=== PATIENT | male | born 1960 | race Caucasian/White ===

== ENCOUNTER 2022-08-28 15:42 | Inpatient (IN) | payer BC, SELFPAY ==
--- NOTE | ~2022-08-28 | CT_ITS ---
EXAMINATION: CT HEAD WITHOUT CONTRAST CLINICAL INFORMATION: Hypertension. Disequilibrium. COMPARISON: No relevant prior imaging. TECHNIQUE: Contiguous axial imaging was performed from the skull base to vertex without intravenous administration of contrast. This CT examination was performed using dose optimization techniques as appropriate, variously including the following: *Automated exposure control *Adjustment of mA and/or kV according to patient size (this includes techniques or standardized protocols for targeted exams where dose is matched to indication/reason for exam; i.e. extremities or head) *Use of iterative reconstruction technique DLP: 629 mGy-cm FINDINGS: There is no acute intracranial hemorrhage or abnormal extra-axial collection. No intracranial mass effect or midline shift. Lateral and third ventricles are normal. No hydrocephalus. Carpio-white matter differentiation is preserved and there is no evidence of acute territorial infarct. The calvarium and skull base are intact. Mastoid air cells and middle ear cavities are well-aerated. Partial opacification of the ethmoid air cells. CT/CT head/brain wo IV con IMPRESSION: Unremarkable CT scan of the head. Specifically evidence of acute territorial infarct or hemorrhage.
--- NOTE | ~2022-08-28 | CT_ITS ---
EXAMINATION: CT HEAD WITHOUT CONTRAST CLINICAL INFORMATION: Mild cognitive impairment. Rule out intracranial etiology. COMPARISON: Previous head CT July 2022 TECHNIQUE: Contiguous axial imaging was performed from the skull base to vertex without intravenous administration of contrast. This CT examination was performed using dose optimization techniques as appropriate, variously including the following: *Automated exposure control *Adjustment of mA and/or kV according to patient size (this includes techniques or standardized protocols for targeted exams where dose is matched to indication/reason for exam; i.e. extremities or head) *Use of iterative reconstruction technique DLP: 786 mGy-cm FINDINGS: There is no evidence of an extra-axial collection. There is no evidence of intra-axial or extra-axial hemorrhage. Ventricles and extra-axial CSF spaces are appropriate. Carpio-white matter differentiation is normal. No mass, mass effect or infarct is seen. No skull fracture. Small polyp or cyst in the left maxillary sinus. Paranasal sinuses, mastoid air cells and middle ears are otherwise clear. CT/CT head/brain wo IV con IMPRESSION: No acute findings.
[2022-08-28 15:53] VITALS: BP 180/100; BP 220/130; PULSE 84; RESP 18; TEMP 37.3; O2SAT 100; O2SAT 98; BMI 25.7
--- NOTE | 2022-08-28 16:02 | ED.GENADULT ---
HPI - General Adult General Chief complaint: General Medical <Niyah Parker NP - Last Filed: 08/28/22 18:00> Stated complaint: dizziness, hypertension <Niyah Parker NP - Last Filed: 08/28/22 18:00> Time Seen by Provider: 08/28/22 15:57 <Niyah Parker NP - Last Filed: 08/28/22 18:00> Source: patient <Niyah Parker NP - Last Filed: 08/28/22 18:00> Mode of arrival: EMS <Niyah Parker NP - Last Filed: 08/28/22 18:00> Limitations: no limitations <Niyah Parker NP - Last Filed: 08/28/22 18:00> History of Present Illness HPI narrative: 62-year-old male with past medical history of hypertension, depression, anxiety, and newly diagnosed bipolar presents to the emergency department after calling EMS after feeling unsafe at work and psychiatric crisis. He states he is working with his primary care provider to manage new psychiatric medications for treatment of his bipolar disorder and states that he does not believe his medication is working effectively. As result he states he has not been able to sleep and has not been eating. He states he called EMS today due to ?unbearable anxiety and feeling unsafe to be at work or drive himself to the hospital. When EMS arrived it was on initial exam that they found him to be hypertensive 230/130. He denied any chest pain, headache, vision changes, or shortness of breath at the time. On arrival to the ED patient appeared anxious with inability to sit still. Initial blood pressure in the ED was 180/100 with repeat blood pressures 165/98. Current, he appears more relaxed, is cooperative, and appropriate in his conversation. He states he is prescribed lisinopril and amlodipine daily, clonidine for his anxiety 2 times a day, and lorazepam 15 mg at bedtime. He states he is compliant with his medications. He reports a high stress level related to his social life and finances. He is on a waiting list to see a therapist. <Niyah Parker NP - Last Filed: 08/28/22 18:00> Onset (ago): hour(s) <Niyah Parker NP - Last Filed: 08/28/22 18:00> Related Data Home medications: Home Medications Medication Instructions Recorded Confirmed amlodipine 5 mg tablet 1 tab PO DAILY 08/28/22 08/28/22 clonidine HCl 0.1 mg tablet 1 tab PO BID PRN insomnia 08/28/22 08/28/22 lisinopril 40 mg tablet 1 tab PO DAILY 08/28/22 08/28/22 olanzapine 15 mg tablet 1 tab PO BEDTIME 08/28/22 08/28/22 tamsulosin 0.4 mg capsule 1 cap PO DAILY 08/28/22 08/28/22 <Niyah Parker NP - Last Filed: 08/28/22 18:00> Allergies/adverse reactions: Allergies Allergy/AdvReac Type Severity Reaction Status Date / Time No Known Allergies Allergy Verified 08/28/22 16:07 <Niyah Parker NP - Last Filed: 08/28/22 18:00> [facility] Past Medical History Source: old records reviewed and obtained from family <Niyah Parker NP - Last Filed: 08/28/22 18:00> Social History Social History: Social History Advance Directives: Yes Advance Directives Information Provided: Yes Advance Directives on File: No Guardian: No <Niyah Parker NP - Last Filed: 08/28/22 18:00> Physical Exam ED Vital Signs: Vital Signs - 24 hr 08/28/22 15:53 08/29/22 00:35 Temperature 99.1 F 97.9 F Pulse Rate 84 68 Respiratory Rate 18 16 Blood Pressure 180/100 H 146/94 H Pulse Oximetry 98 98 Oxygen Delivery Method Room Air Room Air BMI result Body Mass Index 25.7 <Niyah Parker NP - Last Filed: 08/28/22 18:00> Vital Signs - 24 hr 08/28/22 15:53 08/29/22 00:35 Temperature 99.1 F 97.9 F Pulse Rate 84 68 Respiratory Rate 18 16 Blood Pressure 180/100 H 146/94 H Pulse Oximetry 98 98 Oxygen Delivery Method Room Air Room Air BMI result Body Mass Index 25.7 <Trisha Romero NP - Last Filed: 08/29/22 00:53> Course Course Course Narrative: 1700: Patient states he called EMS for transfer to the hospital for a psychiatric crisis. High blood pressure circumstantial. Crisis consult initiated. PERALTA urine and COVID ordered. Pending CT head, EKG, blood work for medical clearance. 1715: CT head unremarkable. Blood work unremarkable 1740: EKG NSR. Pt medically cleared 1755: sign out given to Trisha Delatorre [employer] M[employer] DISCLOSURE ACT SPECIALIST with no unanswered questions <Niyah Parker NP - Last Filed: 08/28/22 18:00> 1700: Patient states he called EMS for transfer to the hospital for a psychiatric crisis. High blood pressure circumstantial. Crisis consult initiated. PERALTA urine and COVID ordered. Pending CT head, EKG, blood work for medical clearance. 1715: CT head unremarkable. Blood work unremarkable 1740: EKG NSR. Pt medically cleared 1755: sign out given to Trisha Delatorre [employer] M[employer]GAGE DISCLOSURE ACT SPECIALIST with no unanswered questions 22:00 voluntary bed search, plan for admission. Physician observation at this time. <Trisha Romero NP - Last Filed: 08/29/22 00:53> Medical Decision Making MDM Narrative Medical decision making narrative: 62-year-old male with past medical history of hypertension, depression, anxiety, and newly diagnosed bipolar presents to the emergency department after calling EMS after feeling unsafe at work and psychiatric crisis. Blood pressure obtained by EMS in the field 230/130. On arrival to ED patient appeared anxious and slightly unsteady on his feet, CT head ordered to rule out intracranial pathology. CT head results unremarkable for acute territorial infarct or hemorrhage. EKG normal sinus rhythm with left axis deviation. Blood work unremarkable. After discussing HPI and physical exam with patient, he states he feels he is in psychiatric crisis and feels unsafe leaving the hospital and going home to an empty apartment. Crisis consult initiated. Patient medically cleared <Niyah Parker NP - Last Filed: 08/28/22 18:00> Lab Data Result diagrams: : 08/28/22 16:22 08/28/22 16:22 <Niyah Parker NP - Last Filed: 08/28/22 18:00> Labs: Lab Results 11/29/22 11/29/22 11/29/22 Range/Units 16:22 16:22 16:22 WBC 8.7 (4.8-10.8) X10*3/uL RBC 4.60 (4.60-5.80) X10*6/uL Hgb 13.9 L (14.0-18.0) g/dl Hct 41.7 L (42.0-52.0) % MCV 90.7 (80.0-98.0) fL MCH 30.2 (27.0-33.0) pg MCHC 33.3 (31.0-36.0) g/dl RDW 13.2 (11.0-16.0) % Plt Count 206 (160-400) X10*3/uL MPV 10.9 (9.4-12.4) fL Immature Gran % (Auto) 0.5 H (0.0-0.4) % Neut % (Auto) 75.4 H (45-73) % Lymph % (Auto) 15.8 L (20-40) % [place] % (Auto) 7.8 (2-11) % Eos % (Auto) 0.2 (0-4) % Baso % (Auto) 0.3 (0-2) % Lymph # (Auto) 1.4 (1.2-4.9) X10*3/uL [place] # (Auto) 0.7 (0.1-1.2) X10*3/uL Eos # (Auto) 0.0 (0.0-0.4) X10*3/uL Baso # (Auto) 0.0 (0.0-0.2) X10*3/uL Abs Immat Gran (auto) 0.04 H (0.00-0.03) X10*3/uL Absolute Neuts (auto) 6.5 (2.0-8.3) x10*3/uL Absolute Nucleated RBC 0.000 (0.0-0.012) X10*3/uL Nucleated RBC % (auto) 0.0 (0.0-0.2) /100WBC D-Dimer High Sensitivty NG/ML Sodium 142 (135-145) mmol/L Potassium 3.4 (3.3-5.1) mmol/L Chloride 105 (96-108) mmol/L Carbon Dioxide 27 (22-29) mmol/L Anion Gap 13 (12-20) BUN 14 (9-16) mg/dL Creatinine 1.10 (0.5-1.4) mg/dL Estim Creat Clear Calc 78.8 Estimated GFR > 60 Random Glucose 93 (60-115) mg/dL Calcium 9.6 (8.4-10.2) mg/dL Total Bilirubin 0.4 (0.0-1.0) mg/dL AST 16 (5-37) U/L ALT 16 (0-40) U/L Alkaline Phosphatase 47 (39-117) U/L Troponin I High Sens 7.7 (<3.5-35.0) ng/L Total Protein 6.8 (6.5-8.0) g/dL Albumin 4.5 (3.5-5.0) g/dL Urine Opiates Screen (Not Detect) Urine Fentanyl Screen (Not Detect) Ur Barbiturates Screen (Not Detect) Ur Phencyclidine Scrn (Not Detect) Ur Amphetamines Screen (Not Detect) U Benzodiazepines Scrn (Not Detect) Urine Cocaine Screen (Not Detect) U Marijuana (THC) Screen (Not Detect) COVID-19 (DOLLY) (Negative) COVID-19 Clin Com Influenza Type A (ANETA) (Negative) Influenza Type B (ANETA) (Negative) Influenza A & B Note 08/28/22 08/28/22 08/28/22 Range/Units 16:22 17:43 17:53 WBC (4.8-10.8) X10*3/uL RBC (4.60-5.80) X10*6/uL Hgb (14.0-18.0) g/dl Hct (42.0-52.0) % MCV (80.0-98.0) fL MCH (27.0-33.0) pg MCHC (31.0-36.0) g/dl RDW (11.0-16.0) % Plt Count (160-400) X10*3/uL MPV (9.4-12.4) fL Immature Gran % (Auto) (0.0-0.4) % Neut % (Auto) (45-73) % Lymph % (Auto) (20-40) % [place] % (Auto) (2-11) % Eos % (Auto) (0-4) % Baso % (Auto) (0-2) % Lymph # (Auto) (1.2-4.9) X10*3/uL [place] # (Auto) (0.1-1.2) X10*3/uL Eos # (Auto) (0.0-0.4) X10*3/uL Baso # (Auto) (0.0-0.2) X10*3/uL Abs Immat Gran (auto) (0.00-0.03) X10*3/uL Absolute Neuts (auto) (2.0-8.3) x10*3/uL Absolute Nucleated RBC (0.0-0.012) X10*3/uL Nucleated RBC % (auto) (0.0-0.2) /100WBC D-Dimer High Sensitivty < 150 NG/ML Sodium (135-145) mmol/L Potassium (3.3-5.1) mmol/L Chloride (96-108) mmol/L Carbon Dioxide (22-29) mmol/L Anion Gap (12-20) BUN (9-16) mg/dL Creatinine (0.5-1.4) mg/dL Estim Creat Clear Calc Estimated GFR Random Glucose (60-115) mg/dL Calcium (8.4-10.2) mg/dL Total Bilirubin (0.0-1.0) mg/dL AST (5-37) U/L ALT (0-40) U/L Alkaline Phosphatase (39-117) U/L Troponin I High Sens (<3.5-35.0) ng/L Total Protein (6.5-8.0) g/dL Albumin (3.5-5.0) g/dL Urine Opiates Screen Not Detected (Not Detect) Urine Fentanyl Screen Not Detected (Not Detect) Ur Barbiturates Screen Not Detected (Not Detect) Ur Phencyclidine Scrn Not Detected (Not Detect) Ur Amphetamines Screen Not Detected (Not Detect) U Benzodiazepines Scrn Not Detected (Not Detect) Urine Cocaine Screen Not Detected (Not Detect) U Marijuana (THC) Screen Not Detected (Not Detect) COVID-19 (DOLLY) Negative (Negative) COVID-19 Clin Com See Note Influenza Type A (ANETA) (Negative) Influenza Type B (ANETA) (Negative) Influenza A & B Note 08/28/22 Range/Units 18:22 WBC (4.8-10.8) X10*3/uL RBC (4.60-5.80) X10*6/uL Hgb (14.0-18.0) g/dl Hct (42.0-52.0) % MCV (80.0-98.0) fL MCH (27.0-33.0) pg MCHC (31.0-36.0) g/dl RDW (11.0-16.0) % Plt Count (160-400) X10*3/uL MPV (9.4-12.4) fL Immature Gran % (Auto) (0.0-0.4) % Neut % (Auto) (45-73) % Lymph % (Auto) (20-40) % [place] % (Auto) (2-11) % Eos % (Auto) (0-4) % Baso % (Auto) (0-2) % Lymph # (Auto) (1.2-4.9) X10*3/uL [place] # (Auto) (0.1-1.2) X10*3/uL Eos # (Auto) (0.0-0.4) X10*3/uL Baso # (Auto) (0.0-0.2) X10*3/uL Abs Immat Gran (auto) (0.00-0.03) X10*3/uL Absolute Neuts (auto) (2.0-8.3) x10*3/uL Absolute Nucleated RBC (0.0-0.012) X10*3/uL Nucleated RBC % (auto) (0.0-0.2) /100WBC D-Dimer High Sensitivty NG/ML Sodium (135-145) mmol/L Potassium (3.3-5.1) mmol/L Chloride (96-108) mmol/L Carbon Dioxide (22-29) mmol/L Anion Gap (12-20) BUN (9-16) mg/dL Creatinine (0.5-1.4) mg/dL Estim Creat Clear Calc Estimated GFR Random Glucose (60-115) mg/dL Calcium (8.4-10.2) mg/dL Total Bilirubin (0.0-1.0) mg/dL AST (5-37) U/L ALT (0-40) U/L Alkaline Phosphatase (39-117) U/L Troponin I High Sens (<3.5-35.0) ng/L Total Protein (6.5-8.0) g/dL Albumin (3.5-5.0) g/dL Urine Opiates Screen (Not Detect) Urine Fentanyl Screen (Not Detect) Ur Barbiturates Screen (Not Detect) Ur Phencyclidine Scrn (Not Detect) Ur Amphetamines Screen (Not Detect) U Benzodiazepines Scrn (Not Detect) Urine Cocaine Screen (Not Detect) U Marijuana (THC) Screen (Not Detect) COVID-19 (DOLLY) (Negative) COVID-19 Clin Com Influenza Type A (ANETA) Negative (Negative) Influenza Type B (ANETA) Negative (Negative) Influenza A & B Note See Note <Niyah Parker NP - Last Filed: 08/28/22 18:00> Lab Results 08/28/22 08/28/22 08/28/22 Range/Units 16:22 16:22 16:22 WBC 8.7 (4.8-10.8) X10*3/uL RBC 4.60 (4.60-5.80) X10*6/uL Hgb 13.9 L (14.0-18.0) g/dl Hct 41.7 L (42.0-52.0) % MCV 90.7 (80.0-98.0) fL MCH 30.2 (27.0-33.0) pg MCHC 33.3 (31.0-36.0) g/dl RDW 13.2 (11.0-16.0) % Plt Count 206 (160-400) X10*3/uL MPV 10.9 (9.4-12.4) fL Immature Gran % (Auto) 0.5 H (0.0-0.4) % Neut % (Auto) 75.4 H (45-73) % Lymph % (Auto) 15.8 L (20-40) % [place] % (Auto) 7.8 (2-11) % Eos % (Auto) 0.2 (0-4) % Baso % (Auto) 0.3 (0-2) % Lymph # (Auto) 1.4 (1.2-4.9) X10*3/uL [place] # (Auto) 0.7 (0.1-1.2) X10*3/uL Eos # (Auto) 0.0 (0.0-0.4) X10*3/uL Baso # (Auto) 0.0 (0.0-0.2) X10*3/uL Abs Immat Gran (auto) 0.04 H (0.00-0.03) X10*3/uL Absolute Neuts (auto) 6.5 (2.0-8.3) x10*3/uL Absolute Nucleated RBC 0.000 (0.0-0.012) X10*3/uL Nucleated RBC % (auto) 0.0 (0.0-0.2) /100WBC D-Dimer High Sensitivty NG/ML Sodium 142 (135-145) mmol/L Potassium 3.4 (3.3-5.1) mmol/L Chloride 105 (96-108) mmol/L Carbon Dioxide 27 (22-29) mmol/L Anion Gap 13 (12-20) BUN 14 (9-16) mg/dL Creatinine 1.10 (0.5-1.4) mg/dL Estim Creat Clear Calc 78.8 Estimated GFR > 60 Random Glucose 93 (60-115) mg/dL Calcium 9.6 (8.4-10.2) mg/dL Total Bilirubin 0.4 (0.0-1.0) mg/dL AST 16 (5-37) U/L ALT 16 (0-40) U/L Alkaline Phosphatase 47 (39-117) U/L Troponin I High Sens 7.7 (<3.5-35.0) ng/L Total Protein 6.8 (6.5-8.0) g/dL Albumin 4.5 (3.5-5.0) g/dL Urine Opiates Screen (Not Detect) Urine Fentanyl Screen (Not Detect) Ur Barbiturates Screen (Not Detect) Ur Phencyclidine Scrn (Not Detect) Ur Amphetamines Screen (Not Detect) U Benzodiazepines Scrn (Not Detect) Urine Cocaine Screen (Not Detect) U Marijuana (THC) Screen (Not Detect) COVID-19 (DOLLY) (Negative) COVID-19 Clin Com Influenza Type A (ANETA) (Negative) Influenza Type B (ANETA) (Negative) Influenza A & B Note 08/28/22 08/28/22 08/28/22 Range/Units 16:22 17:43 17:53 WBC (4.8-10.8) X10*3/uL RBC (4.60-5.80) X10*6/uL Hgb (14.0-18.0) g/dl Hct (42.0-52.0) % MCV (80.0-98.0) fL MCH (27.0-33.0) pg MCHC (31.0-36.0) g/dl RDW (11.0-16.0) % Plt Count (160-400) X10*3/uL MPV (9.4-12.4) fL Immature Gran % (Auto) (0.0-0.4) % Neut % (Auto) (45-73) % Lymph % (Auto) (20-40) % [place] % (Auto) (2-11) % Eos % (Auto) (0-4) % Baso % (Auto) (0-2) % Lymph # (Auto) (1.2-4.9) X10*3/uL [place] # (Auto) (0.1-1.2) X10*3/uL Eos # (Auto) (0.0-0.4) X10*3/uL Baso # (Auto) (0.0-0.2) X10*3/uL Abs Immat Gran (auto) (0.00-0.03) X10*3/uL Absolute Neuts (auto) (2.0-8.3) x10*3/uL Absolute Nucleated RBC (0.0-0.012) X10*3/uL Nucleated RBC % (auto) (0.0-0.2) /100WBC D-Dimer High Sensitivty < 150 NG/ML Sodium (135-145) mmol/L Potassium (3.3-5.1) mmol/L Chloride (96-108) mmol/L Carbon Dioxide (22-29) mmol/L Anion Gap (12-20) BUN (9-16) mg/dL Creatinine (0.5-1.4) mg/dL Estim Creat Clear Calc Estimated GFR Random Glucose (60-115) mg/dL Calcium (8.4-10.2) mg/dL Total Bilirubin (0.0-1.0) mg/dL AST (5-37) U/L ALT (0-40) U/L Alkaline Phosphatase (39-117) U/L Troponin I High Sens (<3.5-35.0) ng/L Total Protein (6.5-8.0) g/dL Albumin (3.5-5.0) g/dL Urine Opiates Screen Not Detected (Not Detect) Urine Fentanyl Screen Not Detected (Not Detect) Ur Barbiturates Screen Not Detected (Not Detect) Ur Phencyclidine Scrn Not Detected (Not Detect) Ur Amphetamines Screen Not Detected (Not Detect) U Benzodiazepines Scrn Not Detected (Not Detect) Urine Cocaine Screen Not Detected (Not Detect) U Marijuana (THC) Screen Not Detected (Not Detect) COVID-19 (DOLLY) Negative (Negative) COVID-19 Clin Com See Note Influenza Type A (ANETA) (Negative) Influenza Type B (ANETA) (Negative) Influenza A & B Note 08/28/22 Range/Units 18:22 WBC (4.8-10.8) X10*3/uL RBC (4.60-5.80) X10*6/uL Hgb (14.0-18.0) g/dl Hct (42.0-52.0) % MCV (80.0-98.0) fL MCH (27.0-33.0) pg MCHC (31.0-36.0) g/dl RDW (11.0-16.0) % Plt Count (160-400) X10*3/uL MPV (9.4-12.4) fL Immature Gran % (Auto) (0.0-0.4) % Neut % (Auto) (45-73) % Lymph % (Auto) (20-40) % [place] % (Auto) (2-11) % Eos % (Auto) (0-4) % Baso % (Auto) (0-2) % Lymph # (Auto) (1.2-4.9) X10*3/uL [place] # (Auto) (0.1-1.2) X10*3/uL Eos # (Auto) (0.0-0.4) X10*3/uL Baso # (Auto) (0.0-0.2) X10*3/uL Abs Immat Gran (auto) (0.00-0.03) X10*3/uL Absolute Neuts (auto) (2.0-8.3) x10*3/uL Absolute Nucleated RBC (0.0-0.012) X10*3/uL Nucleated RBC % (auto) (0.0-0.2) /100WBC D-Dimer High Sensitivty NG/ML Sodium (135-145) mmol/L Potassium (3.3-5.1) mmol/L Chloride (96-108) mmol/L Carbon Dioxide (22-29) mmol/L Anion Gap (12-20) BUN (9-16) mg/dL Creatinine (0.5-1.4) mg/dL Estim Creat Clear Calc Estimated GFR Random Glucose (60-115) mg/dL Calcium (8.4-10.2) mg/dL Total Bilirubin (0.0-1.0) mg/dL AST (5-37) U/L ALT (0-40) U/L Alkaline Phosphatase (39-117) U/L Troponin I High Sens (<3.5-35.0) ng/L Total Protein (6.5-8.0) g/dL Albumin (3.5-5.0) g/dL Urine Opiates Screen (Not Detect) Urine Fentanyl Screen (Not Detect) Ur Barbiturates Screen (Not Detect) Ur Phencyclidine Scrn (Not Detect) Ur Amphetamines Screen (Not Detect) U Benzodiazepines Scrn (Not Detect) Urine Cocaine Screen (Not Detect) U Marijuana (THC) Screen (Not Detect) COVID-19 (DOLLY) (Negative) COVID-19 Clin Com Influenza Type A (ANETA) Negative (Negative) Influenza Type B (ANETA) Negative (Negative) Influenza A & B Note See Note <Trisha Romero NP - Last Filed: 08/29/22 00:53> Imaging Data CT scan - head: My impression: CT scan unremarkable for acute territorial infarct or hemorrhage. <Niyah Parker NP - Last Filed: 08/28/22 18:00> Radiologist's impression: EXAMINATION: CT HEAD WITHOUT CONTRAST CLINICAL INFORMATION: Hypertension. Disequilibrium.? COMPARISON: No relevant prior imaging. TECHNIQUE: Contiguous axial imaging was performed from the skull base to vertex without intravenous administration of contrast. This CT examination was performed using dose optimization techniques as appropriate, variously including the following: *Automated exposure control *Adjustment of mA and/or kV according to patient size (this includes techniques or standardized protocols for targeted exams where dose is matched to indication/reason for exam; i.e. extremities or head) *Use of iterative reconstruction technique DLP: 629 mGy-cm FINDINGS: There is no acute intracranial hemorrhage or abnormal extra-axial collection. No intracranial mass effect or midline shift. Lateral and third ventricles are normal. No hydrocephalus. Carpio-white matter differentiation is preserved and there is no evidence of acute territorial infarct. The calvarium and skull base are intact. Mastoid air cells and middle ear cavities are well-aerated. Partial opacification of the ethmoid air cells. CT/CT head/brain wo IV con IMPRESSION: Unremarkable CT scan of the head. Specifically evidence of acute territorial infarct or hemorrhage. Dictated By: Pito Rodrigues MD Signed By: <Electronically signed by Pito Rodrigues MD in OV> 08/28/22 1711 DD/ 1639 TD/TT:? Adjutant General: <Niyah Parker NP - Last Filed: 08/28/22 18:00> ECG Data Prior ECG tracings: not available for review <Niyah Parker NP - Last Filed: 08/28/22 18:00> Interpretation: Vent. Rate : 075 BPM ? ? Atrial Rate : 075 BPM ?? P-R Int : 162 ms? QRS Dur : 088 ms ? ? QT Int : 394 ms ? ? ? P-R-T Axes : 067 -30 053 degrees ?? QTc Int : 439 ms ? Normal sinus rhythm Left axis deviation Septal infarct , age undetermined Abnormal ECG No previous ECGs available <NY Johnson Last Filed: 08/28/22 18:00> Discharge Plan Discharge Clinical Impression: Anxiety <NY Johnosn Last Filed: 08/28/22 18:00> Patient Disposition: Still a Patient <NY Johnson Last Filed: 08/28/22 18:00> Prescriptions: No Action clonidine HCl 0.1 mg tablet 1 tab PO BID PRN (Reason: insomnia) amlodipine 5 mg tablet 1 tab PO DAILY tamsulosin 0.4 mg capsule 1 cap PO DAILY olanzapine 15 mg tablet 1 tab PO BEDTIME lisinopril 40 mg tablet 1 tab PO DAILY <Niyah Parker HOME M[employer]GAGE DISCLOSURE ACT SPECIALIST - Last Filed: 08/28/22 18:00>
--- NOTE | 2022-08-28 16:07 | ECG_ITS ---
Test Reason : DIZZINESS/HYPERTENSION Blood Pressure : / mmHG Vent. Rate : 075 BPM Atrial Rate : 075 BPM P-R Int : 162 ms QRS Dur : 088 ms QT Int : 394 ms P-R-T Axes : 067 -30 053 degrees QTc Int : 439 ms Normal sinus rhythm Left anterior fascicular block Intra-ventricular conduction delay Abnormal ECG No previous ECGs available Referred By: Niyah Parker Electronically Signed By:SUSHMA QUEVEDO MD
[2022-08-28 16:28] LABS: MANUAL DIFF FLAG NO
[2022-08-28 16:30] LABS: Basophils Percent Auto 0.3 % (0-2); Eosinophils Percent Auto 0.2 % (0-4); Hematocrit 41.7 % (42.0-52.0); Hemoglobin 13.9 g/dl (14.0-18.0); Imm Gran Abs Auto 0.04 X10*3/uL (0.00-0.03); Imm Gran Pct Auto 0.5 % (0.0-0.4); Lymphocytes Absolute Auto 1.4 X10*3/uL (1.2-4.9); Lymphocytes Percent Auto 15.8 % (20-40); Mean Corpuscular HGB Conc 33.3 g/dl (31.0-36.0); Mean Corpuscular Hemoglobin 30.2 pg (27.0-33.0); Mean Corpuscular Volume 90.7 fL (80.0-98.0); Mean Platelet Volume 10.9 fL (9.4-12.4); Monocytes Absolute Auto 0.7 X10*3/uL (0.1-1.2); Monocytes Percent Auto 7.8 % (2-11); Neutrophils Absolute Auto 6.5 x10*3/uL (2.0-8.3); Neutrophils Percent Auto 75.4 % (45-73); Platelet Count 206 X10*3/uL (160-400); Red Cell Distribution Width 13.2 % (11.0-16.0); White Blood Count 8.7 X10*3/uL (4.8-10.8)
[2022-08-28 16:39] LABS: D Dimer High Sensitivity < 150 NG/ML
[2022-08-28 16:43] LABS: Alanine Aminotransferase 16 U/L (0-40); Albumin Level 4.5 g/dL (3.5-5.0); Alkaline Phosphatase 47 U/L (39-117); Anion Gap 13 (12-20); Aspartate Amino Transferase 16 U/L (5-37); Bilirubin Total 0.4 mg/dL (0.0-1.0); Blood Urea Nitrogen 14 mg/dL (9-16); Calcium 9.6 mg/dL (8.4-10.2); Carbon Dioxide 27 mmol/L (22-29); Chloride 105 mmol/L (96-108); Creatinine Clr Calc Pharmacy 78.8; Estimated Glomerular Filt Rate > 60; Glucose Random 93 mg/dL (60-115); Potassium 3.4 mmol/L (3.3-5.1); Sodium 142 mmol/L (135-145); Total Protein 6.8 g/dL (6.5-8.0)
[2022-08-28 16:53] LABS: Troponin-I High Sensitivity 7.7 ng/L (<3.5-35.0)
--- NOTE | 2022-08-28 17:35 | PC.NURSE ---
N consult form sent.
--- NOTE | 2022-08-28 17:50 | PC.NURSE ---
Security called to change analyst PT.
--- NOTE | 2022-08-28 18:07 | PC.NURSE ---
PT a&o x4, PT reports having SI with no plan. Reports racing thoughts since not being able to sleep. PT reports feeling safe while here. PT calm and cooperative.
[2022-08-28 18:10] LABS: Amphetamine Screen Urine Not Detected (Not Detect); Barbiturates, Urine Not Detected (Not Detect); Benzodiazepines Screen Urine Not Detected (Not Detect); Cannabinoid Screen Urine Not Detected (Not Detect); Cocaine Screen Urine Not Detected (Not Detect); Fentanyl, urine Not Detected (Not Detect); Opiate Screen Urine Not Detected (Not Detect); Phencyclidine Screen Urine Not Detected (Not Detect)
[2022-08-28 18:13] LABS: COVID-19 Test Negative (Negative); IDNOW Serial# BCCEAD1C
[2022-08-28 18:47] LABS: IDNOW Serial# 16C4AD1C; Influenza A Negative (Negative); Influenza B2 Negative (Negative)
--- NOTE | 2022-08-28 21:59 | MHC.CARE ---
Pt has been evaluated by CARE team and is a voluntary inpt psych bedsearch. Anticipated admission to hospital psychiatry tomorrow.
[2022-08-29 00:35] VITALS: BP 146/94; PULSE 68; RESP 16; TEMP 36.6; O2SAT 98
--- NOTE | 2022-08-29 06:11 | PC.NURSE ---
Patient slept through the night, no distress observed/reported, behavior non concerning, med rec completed/pending provider's approval, disposition per care team is voluntary inpatient bed search, VSS, will continue to monitor.
[2022-08-29 07:33] VITALS: BP 152/88; PULSE 100; RESP 20; TEMP 37.1; O2SAT 97
[2022-08-29] MEDS: OLANZapine 5 MG TABLET PO (10:48)
[2022-08-29 19:00] VITALS: BP 141/82; PULSE 81; RESP 16; TEMP 36.3; O2SAT 98
[2022-08-29] MEDS: OLANZapine 7.5 MG TABLET 15 MG PO (20:43)
[2022-08-29] MEDS: traZODone HCL 50 MG TABLET PO ×2 (20:44→23:46)
[2022-08-29] MEDS: hydrOXYzine HCL 25 MG TABLET PO (20:44)
--- NOTE | 2022-08-29 22:38 | PC.NURSE ---
Rudy was admitted to [facility] at 1900 from [facility] on [facility] for treatment of unspecified bipolar disorder.? Precipitant of admission includes lack of sleep possibly related to medication changes, which pt sts put him into manic side of bipolar, depression and SI. Pt A&O, INAD, pleasant and cooperative. Mood is stable; Affect is flat. Pt denies HI/AH/VH/pain, reports safety concerns related to lack of sleep. Thought process linear. Pt sts SI with plan to put a knife through the heart. Reports reduced appetite, 13 lb. weight loss over a month. Sleep is poor. Focus appears appropriate during assessment; however, pt reports things that were easy for him a month ago are no longer. Pt sts he last smoked MJ a month ago, no other substance use.? Medical issues: Hx obstructive sleep apnea diagnosed 20 years ago when pt was 100 lbs. Heavier. Use of CPAP exacerbated condition and he has not used. Physical complaint: Htn. Takes lisinopril, amlodipine. Safety checks: Q15.
[2022-08-29 22:40] VITALS: BMI 24.0
[2022-08-30] MEDS: LORazepam 1 MG TABLET PO ×2 (03:45→20:48)
[2022-08-30 07:00] VITALS: BMI 24.0
[2022-08-30 08:45] LABS: Estimated Average Glucose 100 mg/dL; Hemoglobin A1c % 5.1 %
[2022-08-30] MEDS: Tamsulosin HCL 0.4 MG CAPSULE PO (08:52)
[2022-08-30] MEDS: lisinopriL 40 MG TABLET PO (08:52)
[2022-08-30 09:36] LABS: Cholesterol 197 mg/dL; Free T4 (Free Thyroxine) 1.18 ng/dL (0.71-1.85); HDL Cholesterol 65 mg/dL; LDL Cholesterol Calculated 114 mg/dl; Magnesium 2.2 mg/dL (1.6-2.6); Thyroid Stimulating Hormone 0.84 uIU/mL (0.32-4.0); Triglycerides 93 mg/dL
[2022-08-30 09:47] LABS: Folate 10.7 ng/mL (> or = 4.0); Vitamin B12 251 pg/mL (200-900)
--- NOTE | 2022-08-30 10:00 | PC.NURSE ---
5mg amlodipine not given at 9am; waiting on pharmacy
[2022-08-30 10:30] VITALS: BP 146/67; PULSE 78; RESP 16; TEMP 36.6; O2SAT 100
--- NOTE | 2022-08-30 10:49 | P.HPPS_ITS ---
HPI Date of Service: 08/30/22 Chief Complaint: Bipolar disorder,SI Sources of Information: patient interviewed, chart reviewed and crisis/core team assessment reviewed HPI Subjective Notes: [place] Warning and Conditional Voluntary Healthcare Proxy: No Guardianship: No Medical Problems Affecting Mental Status: No Narrative: 62 yo male presents with SI. Reports a manic episode beginning in January 2022 with several subsequent medication changes and resulting lability, racing of thoughts, inability to sleep and depressed mood. No sx of paranoia or delusions. +rumination. Reports in January 2022 he experienced a [place] break in an airport, where security was activated and pt had a resulting panic attack. Pt reports he left his after their vacation, had an affair, signed a year lease for an apartment and has been manic essentially throughout. Recently diagnosed as bipolar vs unipolar, Ritalin was stopped, Effexor was stopped, Lexapro was stopped and Olanzapine was started. Pt attended a 3 weeks IOP/PHP program and is on the wait list for therapy with [facility]. 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 Pt references his perspective as being that of [employer] and this has contributed to his depressive sx. Past Psychiatric History: IP: This is the first OP: [facility] pending Iker Dumont prescribing Trials: Ritalin, Lexapro, Effexor Medical Evaluation Reviewed: Yes [facility] Medical History (Updated 08/31/22 @ 17:49 by Katie Lui, [employer]) Bipolar disorder Narrative: HTN Family History: Brother of alcoholism/oral cancer d/t smoking Social History: Born in [place]. 1 brother, 1 sister, age 69 Parents have mom in 1978 of pancreatic cancer, dad in 2000 of lung cancer 40 years, on his 40th anniversary 2 children, 2 grandchildren daughter and her and grandchildren live with pt's son and partner live nearby all the children are doing well- they are my basil Substance History: Alcohol by history-now sporadic Cannabis started age 15, grows it, helped with sleep by hx, before the anxiety started Trauma History: This episode has been traumatic Diagnostics Vital Signs (24Hr): Vital Signs - 24 hr 08/29/22 19:00 08/30/22 10:30 Temperature 97.4 F 97.8 F Pulse Rate 81 78 Respiratory Rate 16 16 Blood Pressure 141/82 H 146/67 H Pulse Oximetry 98 100 Oxygen Delivery Method Room Air Room Air BMI result Body Mass Index 24.0 Labs Results: 08/28/22 16:22 08/28/22 16:22 Labs: Laboratory Results - last 48 hr 08/28/22 08/28/22 08/28/22 16:22 16:22 16:22 WBC 8.7 RBC 4.60 Hgb 13.9 L Hct 41.7 L MCV 90.7 MCH 30.2 MCHC 33.3 RDW 13.2 Plt Count 206 MPV 10.9 Immature Gran % (Auto) 0.5 H Neut % (Auto) 75.4 H Lymph % (Auto) 15.8 L [place] % (Auto) 7.8 Eos % (Auto) 0.2 Baso % (Auto) 0.3 Lymph # (Auto) 1.4 [place] # (Auto) 0.7 Eos # (Auto) 0.0 Baso # (Auto) 0.0 Abs Immat Gran (auto) 0.04 H Absolute Neuts (auto) 6.5 Absolute Nucleated RBC 0.000 Nucleated RBC % (auto) 0.0 D-Dimer High Sensitivty Sodium 142 Potassium 3.4 Chloride 105 Carbon Dioxide 27 Anion Gap 13 BUN 14 Creatinine 1.10 Estim Creat Clear Calc 78.8 Estimated GFR > 60 Random Glucose 93 Estimat Average Glucose Hemoglobin A1c % Calcium 9.6 Magnesium Total Bilirubin 0.4 AST 16 ALT 16 Alkaline Phosphatase 47 Troponin I High Sens 7.7 Total Protein 6.8 Albumin 4.5 Triglycerides Cholesterol LDL Cholesterol, Calc HDL Cholesterol Vitamin B12 Folate TSH Free T4 Urine Opiates Screen Urine Fentanyl Screen Ur Barbiturates Screen Ur Phencyclidine Scrn Ur Amphetamines Screen U Benzodiazepines Scrn Urine Cocaine Screen U Marijuana (THC) Screen COVID-19 (DOLLY) COVID-19 Clin Com Influenza Type A (ANETA) Influenza Type B (ANETA) Influenza A & B Note 08/28/22 08/28/22 08/28/22 16:22 17:43 17:53 WBC RBC Hgb Hct MCV MCH MCHC RDW Plt Count MPV Immature Gran % (Auto) Neut % (Auto) Lymph % (Auto) [place] % (Auto) Eos % (Auto) Baso % (Auto) Lymph # (Auto) [place] # (Auto) Eos # (Auto) Baso # (Auto) Abs Immat Gran (auto) Absolute Neuts (auto) Absolute Nucleated RBC Nucleated RBC % (auto) D-Dimer High Sensitivty < 150 Sodium Potassium Chloride Carbon Dioxide Anion Gap BUN Creatinine Estim Creat Clear Calc Estimated GFR Random Glucose Estimat Average Glucose Hemoglobin A1c % Calcium Magnesium Total Bilirubin AST ALT Alkaline Phosphatase Troponin I High Sens Total Protein Albumin Triglycerides Cholesterol LDL Cholesterol, Calc HDL Cholesterol Vitamin B12 Folate TSH Free T4 Urine Opiates Screen Not Detected Urine Fentanyl Screen Not Detected Ur Barbiturates Screen Not Detected Ur Phencyclidine Scrn Not Detected Ur Amphetamines Screen Not Detected U Benzodiazepines Scrn Not Detected Urine Cocaine Screen Not Detected U Marijuana (THC) Screen Not Detected COVID-19 (DOLLY) Negative COVID-[employer] See Note Influenza Type A (ANETA) Influenza Type B (ANETA) Influenza A & B Note 08/28/22 08/30/22 08/30/22 18:22 08:02 08:02 WBC RBC Hgb Hct MCV MCH MCHC RDW Plt Count MPV Immature Gran % (Auto) Neut % (Auto) Lymph % (Auto) [place] % (Auto) Eos % (Auto) Baso % (Auto) Lymph # (Auto) [place] # (Auto) Eos # (Auto) Baso # (Auto) Abs Immat Gran (auto) Absolute Neuts (auto) Absolute Nucleated RBC Nucleated RBC % (auto) D-Dimer High Sensitivty Sodium Potassium Chloride Carbon Dioxide Anion Gap BUN Creatinine Estim Creat Clear Calc Estimated GFR Random Glucose Estimat Average Glucose 100 Hemoglobin A1c % 5.1 Calcium Magnesium 2.2 Total Bilirubin AST ALT Alkaline Phosphatase Troponin I High Sens Total Protein Albumin Triglycerides 93 Cholesterol 197 LDL Cholesterol, Calc 114 HDL Cholesterol 65 Vitamin B12 Folate TSH 0.84 Free T4 1.18 Urine Opiates Screen Urine Fentanyl Screen Ur Barbiturates Screen Ur Phencyclidine Scrn Ur Amphetamines Screen U Benzodiazepines Scrn Urine Cocaine Screen U Marijuana (THC) Screen COVID-19 (DOLLY) COVID-[employer] Influenza Type A (ANETA) Negative Influenza Type B (ANETA) Negative Influenza A & B Note See Note 08/30/22 08:02 WBC RBC Hgb Hct MCV MCH MCHC RDW Plt Count MPV Immature Gran % (Auto) Neut % (Auto) Lymph % (Auto) [place] % (Auto) Eos % (Auto) Baso % (Auto) Lymph # (Auto) [place] # (Auto) Eos # (Auto) Baso # (Auto) Abs Immat Gran (auto) Absolute Neuts (auto) Absolute Nucleated RBC Nucleated RBC % (auto) D-Dimer High Sensitivty Sodium Potassium Chloride Carbon Dioxide Anion Gap BUN Creatinine Estim Creat Clear Calc Estimated GFR Random Glucose Estimat Average Glucose Hemoglobin A1c % Calcium Magnesium Total Bilirubin AST ALT Alkaline Phosphatase Troponin I High Sens Total Protein Albumin Triglycerides Cholesterol LDL Cholesterol, Calc HDL Cholesterol Vitamin B12 251 Folate 10.7 TSH Free T4 Urine Opiates Screen Urine Fentanyl Screen Ur Barbiturates Screen Ur Phencyclidine Scrn Ur Amphetamines Screen U Benzodiazepines Scrn Urine Cocaine Screen U Marijuana (THC) Screen COVID-19 (DOLLY) COVID-19 Clin Com Influenza Type A (ANETA) Influenza Type B (ANETA) Influenza A & B Note Imaging Radiology Impressions: ITS Impressions Head CT 08/28/22 16:39 IMPRESSION: Unremarkable CT scan of the head. Specifically evidence of acute territorial infarct or hemorrhage. Meds/Allergies Meds Home Medications Medication Instructions Recorded Confirmed Type amlodipine 5 mg tablet 1 tab PO DAILY 08/28/22 08/28/22 History clonidine HCl 0.1 mg tablet 1 tab PO BID PRN insomnia 08/28/22 08/28/22 History lisinopril 40 mg tablet 1 tab PO DAILY 08/28/22 08/28/22 History olanzapine 15 mg tablet 1 tab PO BEDTIME 08/28/22 08/28/22 History tamsulosin 0.4 mg capsule 1 cap PO DAILY 08/28/22 08/28/22 History Allergies Allergies Allergy/AdvReac Type Severity Reaction Status Date / Time No Known Allergies Allergy Verified 08/28/22 16:07 Mental Status Exam Mental Status Exam Patient Appearance: Fatigued Patient Orientation: Person, Place, Time and Situation Level of Consciousness: Restless and Alert Patient Behavior: Appropriate, Talkative, Cooperative, Anxious, Fatigued, Distractible and Good Eye Contact Mood Description: Depressed Affect Description: Flat Patient Cognition Impaired: No Ability to Follow Directions: Good Speech Pattern: Spontaneous Speech Memory Description: Episodic Impaired Hallucinations: None Delusions: Not Present Perceptual Disturbances: Depersonalization and Derealization Thought Process: Distracted and Rumination Thought Content: positive for Perseveration and positive for Suicidal Ideation Depressive Symptoms: Increased Anxiety and Difficulty Concentrating Judgement: Fair Assessment & Plan Assessment & Plan (1) Bipolar disorder: Status: Acute Code(s): F31.9 - Bipolar disorder, unspecified Plan 62 yo male, exacerbation of bipolar disorder with recent med changes from Ritalin, Lexapro, Effexor to Olanzapine. Pt reports having a psychotic decompensation January 2022 with panic and fear at the airport. He left his , had an affair, and signed a year least in March 2022 while manic. He reports being over-active, over-productive and more disorganized until meds have been changed recently. He presents for ongoing assistance in stabilization of his mood. Plan: B12 100 mcg daily (level 251) Depakote ER 500 mg HS MVI 1 tab daily Glycopyrolate 0.5 mg bid trial -pt reporting excessive salivation Patient educated on: medication risk/benefits Informed Consent: further education needed Reason for continued inpatient stay Substantial Risk for: harm to self, inability to function and rapid decompensation Statement Statement: I have reviewed the history and physical and performed a pertinent examination on my patient. No changes have occurred unless specified.
[2022-08-30] MEDS: amLODIPine Besylate 5 MG TABLET PO (11:07)
--- NOTE | 2022-08-30 15:39 | MHC.CLN ---
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
[2022-08-30] MEDS: OLANZapine 7.5 MG TABLET 15 MG PO (19:43)
[2022-08-30] MEDS: Glycopyrrolate 1 MG TABLET 0.5 MG PO (19:43)
[2022-08-30] MEDS: Divalproex Sodium ER 500 MG TAB.ER.24H PO (19:44)
[2022-08-30 20:27] VITALS: BP 118/79; PULSE 79; RESP 16; TEMP 36.8; O2SAT 97
[2022-08-31 08:26] VITALS: BP 174/76; PULSE 82; RESP 16; TEMP 36.6; O2SAT 97
[2022-08-31] MEDS: Glycopyrrolate 1 MG TABLET 0.5 MG PO ×2 (08:29→20:35)
[2022-08-31] MEDS: Tamsulosin HCL 0.4 MG CAPSULE PO (08:30)
[2022-08-31] MEDS: amLODIPine Besylate 5 MG TABLET PO (08:30)
[2022-08-31] MEDS: Cyanocobalamin (Vitamin B-12) 100 MCG TABLET PO (08:30)
[2022-08-31] MEDS: lisinopriL 40 MG TABLET PO (08:30)
[2022-08-31] MEDS: Multivitamin TABLET 1 TAB PO (08:30)
[2022-08-31] MEDS: cloNIDine HCL 0.1 MG TABLET PO (12:56)
[2022-08-31] MEDS: LORazepam 1 MG TABLET PO ×2 (12:56→20:35)
--- NOTE | 2022-08-31 17:53 | HO.PSYCHPN ---
Subjective Subjective Date of Service: 08/31/22 Reason For Visit: Bipolar disorder,SI Subjective Notes: Conditional Voluntary Healthcare Proxy: No Guardianship: No Medical Problems Affecting Mental Status: No Interim History: Reports six hours of sleep, an improvement Reports memory issues-discussed and encouraged to allow regime changes, b12 supplementation, catching up on rest Drooling has decreased Racing thoughts persist. Medication Compliance: Yes Side effects from medications: No Attending Groups: Intermittent Review of Systems Acute medical concerns: No Medical Review of Systems: unchanged Mental Status Exam Mental Status Exam Patient Appearance: Fatigued Patient Orientation: Person, Place, Time and Situation Level of Consciousness: Restless and Alert Patient Behavior: Appropriate, Talkative, Cooperative, Anxious, Fatigued, Distractible and Good Eye Contact Mood Description: Depressed Affect Description: Flat Patient Cognition Impaired: No Ability to Follow Directions: Good Speech Pattern: Spontaneous Speech Memory Description: Episodic Impaired Hallucinations: None Delusions: Not Present Perceptual Disturbances: Depersonalization and Derealization Thought Process: Distracted and Rumination Thought Content: positive for Perseveration and positive for Suicidal Ideation Depressive Symptoms: Increased Anxiety and Difficulty Concentrating Judgement: Fair Diagnostics Vital Signs (24Hr): Vital Signs - 24 hr 08/30/22 20:27 08/31/22 08:26 Temperature 98.2 F 97.8 F Pulse Rate 79 82 Respiratory Rate 16 16 Blood Pressure 118/79 174/76 H Pulse Oximetry 97 97 Oxygen Delivery Method Room Air Room Air BMI result Body Mass Index 24.0 Labs Results: 08/28/22 16:22 08/28/22 16:22 Labs: Laboratory Results - last 48 hr 08/30/22 08/30/22 08/30/22 08:02 08:02 08:02 Estimat Average Glucose 100 Hemoglobin A1c % 5.1 Magnesium 2.2 Triglycerides 93 Cholesterol 197 LDL Cholesterol, Calc 114 HDL Cholesterol 65 Vitamin B12 251 Folate 10.7 TSH 0.84 Free T4 1.18 Imaging Radiology Impressions: ITS Impressions Head CT 08/28/22 16:39 IMPRESSION: Unremarkable CT scan of the head. Specifically evidence of acute territorial infarct or hemorrhage. Medications Medications Current Medications Acetaminophen (Acetaminophen 325 Mg Tablet) 650 mg PO Q6H PRN PRN Reason: Headache/Pain Mild Scale (1-3) Al Hydroxide/Mg Hydroxide (Magnesium Hydrox/Alum Hydrox 30 Ml Oral.Susp) 30 ml PO Q6H PRN PRN Reason: Heartburn/Nausea Amlodipine Besylate (Amlodipine Besylate 5 Mg Tablet) 5 mg PO DAILY [facility]CH[facility]; Protocol Last Admin: 08/31/22 08:30 Dose: 5 mg Clonidine HCl (Clonidine Hcl 0.1 Mg Tablet) 0.1 mg PO BID [facility]; Protocol Cyanocobalamin (Cyanocobalamin (Vitamin B-12) 100 Mcg Tablet) 100 mcg PO DAILY RUCHI Last Admin: 08/31/22 08:30 Dose: 100 mcg Divalproex Sodium (Divalproex Sodium Er 500 Mg Tab.Er.24h) 1,000 mg PO BEDTIME RUCHI Glycopyrrolate (Glycopyrrolate 1 Mg Tablet) 0.5 mg PO BID RUCHI Last Admin: 08/31/22 08:29 Dose: 0.5 mg Hydroxyzine HCl (Hydroxyzine Hcl 25 Mg Tablet) 25 mg PO Q6H PRN PRN Reason: Anxiety Last Admin: 08/29/22 20:44 Dose: 25 mg Lisinopril (Lisinopril 40 Mg Tablet) 40 mg PO DAILY RUCHI; Protocol Last Admin: 08/31/22 08:30 Dose: 40 mg Lorazepam (Lorazepam 1 Mg Tablet) 1 mg PO Q4H PRN PRN Reason: Anxiety Last Admin: 08/30/22 20:48 Dose: 1 mg Lorazepam (Lorazepam 1 Mg Tablet) 1 mg PO BID [facility]I Magnesium Hydroxide (Milk Of Magnesia 30 Ml Oral.Susp) 30 ml PO DAILY PRN PRN Reason: Constipation Multivitamins/Vitamin C (Multivitamin Tablet) 1 tab PO DAILY RUCHI Last Admin: 08/31/22 08:30 Dose: 1 tab Olanzapine (Olanzapine 10 Mg Tablet) 20 mg PO BEDTIME [facility] Tamsulosin HCl (Tamsulosin Hcl 0.4 Mg Capsule) 0.4 mg PO DAILY [facility] Last Admin: 08/31/22 08:30 Dose: 0.4 mg Trazodone HCl (Trazodone Hcl 50 Mg Tablet) 50 mg PO BEDTIME PRN PRN Reason: Insomnia Last Admin: 08/29/22 23:46 Dose: 50 mg Allergies Allergies Allergy/AdvReac Type Severity Reaction Status Date / Time No Known Allergies Allergy Verified 08/28/22 16:07 Assessment & Plan Assessment & Plan (1) Bipolar disorder: Status: Acute Code(s): F31.9 - Bipolar disorder, unspecified Plan 62 yo male, exacerbation of bipolar disorder with recent med changes from Ritalin, Lexapro, Effexor to Olanzapine. Pt reports having a psychotic decompensation January 2022 with panic and fear at the airport. He left his , had an affair, and signed a year least in March 2022 while manic. He reports being over-active, over-productive and more disorganized until meds have been changed recently. He presents for ongoing assistance in stabilization of his mood. Plan: B12 100 mcg daily (level 251) Depakote ER 500 mg HS MVI 1 tab daily Glycopyrolate 0.5 mg bid trial -pt reporting excessive salivation 08/31/22 Increase Depakote ER to 1000 mg HS Lorazepam 1 mg bid Increase Olanzapine to 20 mg hs I spent minutes with the patient and/or on the patient floor today, greater than?50% of which was spent counseling/coordinating care. Patient educated on: medication risk/benefits Informed Consent: further education needed Reason for contiued inpatient stay Substantial Risk for: harm to self and rapid decompensation
[2022-08-31 20:30] VITALS: BP 127/72; PULSE 56; RESP 16; TEMP 36.6
[2022-08-31] MEDS: OLANZapine 10 MG TABLET 20 MG PO (20:34)
[2022-08-31] MEDS: Divalproex Sodium ER 500 MG TAB.ER.24H 1000 MG PO (20:34)
--- NOTE | 2022-09-01 07:29 | P.PNPSI_ITS ---
Subjective Subjective Date of Service: 09/01/22 Reason For Visit: Bipolar disorder,SI Subjective Notes: Conditional Voluntary Healthcare Proxy: No Guardianship: No Medical Problems Affecting Mental Status: No Interim History: Pt reports down and not sleeping, clouded thinking with new med change discussed trying vistaril for sleep until adjusted to new medication change and pt agrees no si here on unit- Medication Compliance: Yes Side effects from medications: Yes (? cloudy thinking) Attending Groups: Intermittent Review of Systems Acute medical concerns: No Mental Status Exam Mental Status Exam Patient Appearance: Well Grooomed and Fatigued Patient Orientation: Person, Place, Time and Situation Level of Consciousness: Awake and Appropriate Patient Behavior: Appropriate Mood Description: Sad Affect Description: Constricted Patient Cognition Impaired: No Ability to Follow Directions: Fair Speech Pattern: Clear Thought Process: Intact and Goal Oriented Thought Content: positive for Suicidal Ideation (not here on unit, but feeling hopeless re mood/situation) Depressive Symptoms: Muscle Tension, Difficulty Sleeping, Loss of Int. in Activity, Feelings of Guilt, Unhappiness, Increased Fatigue and Thoughts of /Suicide Abnormal Motor Activity Signs and Symptoms: Psychomotor Retardation Judgement: Fair Diagnostics Vital Signs (24Hr): Vital Signs - 24 hr 08/31/22 08:26 08/31/22 20:30 Temperature 97.8 F 97.8 F Pulse Rate 82 56 Respiratory Rate 16 16 Blood Pressure 174/76 H 127/72 Pulse Oximetry 97 Oxygen Delivery Method Room Air BMI result Body Mass Index 24.0 Labs Results: 08/28/22 16:22 08/28/22 16:22 Labs: Laboratory Results - last 48 hr 08/30/22 08/30/22 08/30/22 08:02 08:02 08:02 Estimat Average Glucose 100 Hemoglobin A1c % 5.1 Magnesium 2.2 Triglycerides 93 Cholesterol 197 LDL Cholesterol, Calc 114 HDL Cholesterol 65 Vitamin B12 251 Folate 10.7 TSH 0.84 Free T4 1.18 Imaging Radiology Impressions: ITS Impressions Head CT 08/28/22 16:39 IMPRESSION: Unremarkable CT scan of the head. Specifically evidence of acute territorial infarct or hemorrhage. Medications Medications Current Medications Acetaminophen (Acetaminophen 325 Mg Tablet) 650 mg PO Q6H PRN PRN Reason: Headache/Pain Mild Scale (1-3) Al Hydroxide/Mg Hydroxide (Magnesium Hydrox/Alum Hydrox 30 Ml Oral.Susp) 30 ml PO Q6H PRN PRN Reason: Heartburn/Nausea Amlodipine Besylate (Amlodipine Besylate 5 Mg Tablet) 5 mg PO DAILY [facility]; Protocol Last Admin: 08/31/22 08:30 Dose: 5 mg Clonidine HCl (Clonidine Hcl 0.1 Mg Tablet) 0.1 mg PO BID [facility]; Protocol Last Admin: 08/31/22 20:43 Dose: Not Given Cyanocobalamin (Cyanocobalamin (Vitamin B-12) 100 Mcg Tablet) 100 mcg PO DAILY [facility] Last Admin: 08/31/22 08:30 Dose: 100 mcg Divalproex Sodium (Divalproex Sodium Er 500 Mg Tab.Er.24h) 1,000 mg PO BEDTIME RUCHI Last Admin: 08/31/22 20:34 Dose: 1,000 mg Glycopyrrolate (Glycopyrrolate 1 Mg Tablet) 0.5 mg PO BID [facility] Last Admin: 08/31/22 20:35 Dose: 0.5 mg Hydroxyzine HCl (Hydroxyzine Hcl 25 Mg Tablet) 25 mg PO Q6H PRN PRN Reason: Anxiety Last Admin: 08/29/22 20:44 Dose: 25 mg Lisinopril (Lisinopril 40 Mg Tablet) 40 mg PO DAILY [facility]; Protocol Last Admin: 08/31/22 08:30 Dose: 40 mg Lorazepam (Lorazepam 1 Mg Tablet) 1 mg PO Q4H PRN PRN Reason: Anxiety Last Admin: 08/30/22 20:48 Dose: 1 mg Lorazepam (Lorazepam 1 Mg Tablet) 1 mg PO BID [facility] Last Admin: 08/31/22 20:35 Dose: 1 mg Magnesium Hydroxide (Milk Of Magnesia 30 Ml Oral.Susp) 30 ml PO DAILY PRN PRN Reason: Constipation Multivitamins/Vitamin C (Multivitamin Tablet) 1 tab PO DAILY [facility]CH[facility] Last Admin: 08/31/22 08:30 Dose: 1 tab Olanzapine (Olanzapine 10 Mg Tablet) 20 mg PO BEDTIME [facility] Last Admin: 08/31/22 20:34 Dose: 20 mg Tamsulosin HCl (Tamsulosin Hcl 0.4 Mg Capsule) 0.4 mg PO DAILY [facility] Last Admin: 08/31/22 08:30 Dose: 0.4 mg Trazodone HCl (Trazodone Hcl 50 Mg Tablet) 50 mg PO BEDTIME PRN PRN Reason: Insomnia Last Admin: 08/29/22 23:46 Dose: 50 mg changed trazodone to hydroxyzine for tonight Allergies Allergies Allergy/AdvReac Type Severity Reaction Status Date / Time No Known Allergies Allergy Verified 08/28/22 16:07 Assessment & Plan Assessment & Plan (1) Bipolar disorder: Status: Acute Code(s): F31.9 - Bipolar disorder, unspecified Assessment and Plan: trying hydroxyzine for sleep tonight ? cloudy thinking due to lorazepam or depakote trial Plan 62 yo male, exacerbation of bipolar disorder with recent med changes from Ritalin, Lexapro, Effexor to Olanzapine. Pt reports having a psychotic decompensation January 2022 with [place] the airport. He left his , had an affair, and signed a year least in March 2022 while manic. He reports being over-active, over-productive and more disorganized until meds have been changed recently. He presents for ongoing assistance in stabilization of his m ood. Plan: B12 100 mcg daily (level 251) Depakote ER 500 mg HS MVI 1 tab daily Glycopyrolate 0.5 mg bid trial -pt reporting excessive salivation 08/31/22 Increase Depakote ER to 1000 mg HS Lorazepam 1 mg bid Increase Olanzapine to 20 mg hs I spent minutes with the patient and/or on the patient floor today, greater than?50% of which was spent counseling/coordinating care. Patient educated on: medication risk/benefits and therapeutic strategies Informed Consent: understands Reason for contiued inpatient stay Substantial Risk for: rapid decompensation
[2022-09-01] MEDS: Glycopyrrolate 1 MG TABLET 0.5 MG PO ×2 (09:02→20:17)
[2022-09-01] MEDS: Tamsulosin HCL 0.4 MG CAPSULE PO (09:02)
[2022-09-01] MEDS: cloNIDine HCL 0.1 MG TABLET PO ×2 (09:03→20:17)
[2022-09-01] MEDS: Cyanocobalamin (Vitamin B-12) 100 MCG TABLET PO (09:03)
[2022-09-01] MEDS: Multivitamin TABLET 1 TAB PO (09:03)
[2022-09-01] MEDS: lisinopriL 40 MG TABLET PO (09:03)
[2022-09-01] MEDS: amLODIPine Besylate 5 MG TABLET PO (09:03)
[2022-09-01] MEDS: LORazepam 1 MG TABLET PO ×2 (09:03→20:18)
[2022-09-01 09:46] VITALS: BP 158/57; PULSE 78; RESP 16; TEMP 36.8; O2SAT 99
[2022-09-01 16:34] VITALS: BP 146/79; PULSE 77; TEMP 37.3; O2SAT 97
[2022-09-01] MEDS: OLANZapine 10 MG TABLET 20 MG PO (20:18)
[2022-09-01] MEDS: Divalproex Sodium ER 500 MG TAB.ER.24H 1500 MG PO (20:19)
[2022-09-02 06:00] VITALS: BP 174/90; PULSE 82; RESP 16; O2SAT 99
[2022-09-02] MEDS: LORazepam 1 MG TABLET PO (08:52)
[2022-09-02] MEDS: Glycopyrrolate 1 MG TABLET 0.5 MG PO ×2 (08:52→20:30)
[2022-09-02] MEDS: lisinopriL 40 MG TABLET PO (08:52)
[2022-09-02] MEDS: Cyanocobalamin (Vitamin B-12) 100 MCG TABLET PO (08:52)
[2022-09-02] MEDS: amLODIPine Besylate 5 MG TABLET PO (08:52)
[2022-09-02] MEDS: cloNIDine HCL 0.1 MG TABLET PO ×2 (08:52→20:29)
[2022-09-02] MEDS: Tamsulosin HCL 0.4 MG CAPSULE PO (08:53)
[2022-09-02] MEDS: Multivitamin TABLET 1 TAB PO (09:11)
--- NOTE | 2022-09-02 12:53 | P.PNPSI_ITS ---
Subjective Subjective Date of Service: 09/02/22 Reason For Visit: Bipolar disorder,SI Subjective Notes: Conditional Voluntary Healthcare Proxy: No Guardianship: No Medical Problems Affecting Mental Status: No Interim History: still feels foggy thinking and tired, but slept better Review of Systems Medical Review of Systems: unchanged Mental Status Exam Mental Status Exam Narrative: up out of bed, social in kitchen Patient Appearance: Well Grooomed and Fatigued Patient Orientation: Person, Place, Time and Situation Level of Consciousness: Awake and Appropriate Patient Behavior: Appropriate Mood Description: Sad Affect Description: Constricted Patient Cognition Impaired: No Ability to Follow Directions: Fair Speech Pattern: Clear Thought Process: Intact and Goal Oriented Thought Content: positive for Suicidal Ideation (not here on unit, but feeling hopeless re mood/situation) Depressive Symptoms: Muscle Tension, Difficulty Sleeping, Loss of Int. in Activity, Feelings of Guilt, Unhappiness, Increased Fatigue and Thoughts of /Suicide Judgement: Fair Diagnostics Vital Signs (24Hr): Vital Signs - 24 hr 09/01/22 16:34 09/02/22 06:00 Temperature 99.1 F Pulse Rate 77 82 Respiratory Rate 16 Blood Pressure 146/79 H 174/90 H Pulse Oximetry 97 99 Oxygen Delivery Method Room Air Room Air BMI result Body Mass Index 24.0 Labs Results: 08/28/22 16:22 08/28/22 16:22 Imaging Radiology Impressions: ITS Impressions Head CT 08/28/22 16:39 IMPRESSION: Unremarkable CT scan of the head. Specifically evidence of acute territorial infarct or hemorrhage. Medications Medications Current Medications Acetaminophen (Acetaminophen 325 Mg Tablet) 650 mg PO Q6H PRN PRN Reason: Headache/Pain Mild Scale (1-3) Al Hydroxide/Mg Hydroxide (Magnesium Hydrox/Alum Hydrox 30 Ml Oral.Susp) 30 ml PO Q6H PRN PRN Reason: Heartburn/Nausea Amlodipine Besylate (Amlodipine Besylate 5 Mg Tablet) 5 mg PO DAILY [facility]; Protocol Last Admin: 09/02/22 08:52 Dose: 5 mg Clonidine HCl (Clonidine Hcl 0.1 Mg Tablet) 0.1 mg PO BID [facility]; Protocol Last Admin: 09/02/22 08:52 Dose: 0.1 mg Cyanocobalamin (Cyanocobalamin (Vitamin B-12) 100 Mcg Tablet) 100 mcg PO DAILY [facility] Last Admin: 09/02/22 08:52 Dose: 100 mcg Divalproex Sodium (Divalproex Sodium Er 500 Mg Tab.Er.24h) 1,500 mg PO BEDTIME [facility] Last Admin: 09/01/22 20:19 Dose: 1,500 mg Glycopyrrolate (Glycopyrrolate 1 Mg Tablet) 0.5 mg PO BID [facility] Last Admin: 09/02/22 08:52 Dose: 0.5 mg Hydroxyzine HCl (Hydroxyzine Hcl 25 Mg Tablet) 25 mg PO Q6H PRN PRN Reason: Anxiety Last Admin: 08/29/22 20:44 Dose: 25 mg Hydroxyzine HCl (Hydroxyzine Hcl 50 Mg Tablet) 50 mg PO BEDTIME MRX1 PRN PRN Reason: insomnia Lisinopril (Lisinopril 40 Mg Tablet) 40 mg PO DAILY [facility]; Protocol Last Admin: 09/02/22 08:52 Dose: 40 mg Lorazepam (Lorazepam 1 Mg Tablet) 1 mg PO Q4H PRN PRN Reason: Anxiety Last Admin: 08/30/22 20:48 Dose: 1 mg Lorazepam (Lorazepam 1 Mg Tablet) 1 mg PO BID [facility] Last Admin: 09/02/22 08:52 Dose: 1 mg Magnesium Hydroxide (Milk Of Magnesia 30 Ml Oral.Susp) 30 ml PO DAILY PRN PRN Reason: Constipation Multivitamins/Vitamin C (Multivitamin Tablet) 1 tab PO DAILY [facility] Last Admin: 09/02/22 09:11 Dose: 1 tab Olanzapine (Olanzapine 10 Mg Tablet) 20 mg PO BEDTIME [facility] Last Admin: 09/01/22 20:18 Dose: 20 mg Tamsulosin HCl (Tamsulosin Hcl 0.4 Mg Capsule) 0.4 mg PO DAILY [facility] Last Admin: 09/02/22 08:53 Dose: 0.4 mg Allergies Allergies Allergy/AdvReac Type Severity Reaction Status Date / Time No Known Allergies Allergy Verified 08/28/22 16:07 Assessment & Plan Assessment & Plan (1) Bipolar disorder: Status: Acute Code(s): F31.9 - Bipolar disorder, unspecified Assessment and Plan: trying hydroxyzine for sleep tonight ? cloudy thinking due to lorazepam or depakote trial 09/02 increased depkaote maybe have been a bit much for patient-went from 1000 to 1500mg, will dec to 1250mg today Plan 62 yo male, exacerbation of bipolar disorder with recent med changes from Ritalin, Lexapro, Effexor to Olanzapine. Pt reports having a psychotic decompensation [place] 2022 [place] airport[place] He left his , had an affair, and signed a year least in March 2022 while manic. He reports being over-active, over-productive and more disorganized until meds have been changed recently. He presents for ongoing assistance in stabilization of his mood. Plan: B12 100 mcg daily (level 251) Depakote ER 500 mg HS MVI 1 tab daily Glycopyrolate 0.5 mg bid trial -pt reporting excessive salivation 08/31/22 Increase Depakote ER to 1000 mg HS Lorazepam 1 mg bid Increase Olanzapine to 20 mg hs I spent minutes with the patient and/or on the patient floor today, greater than?50% of which was spent counseling/coordinating care. Patient educated on: medication risk/benefits Informed Consent: understands Reason for contiued inpatient stay Substantial Risk for: harm to self and rapid decompensation
[2022-09-02 18:00] VITALS: PULSE 80; TEMP 36.8; O2SAT 95
[2022-09-02] MEDS: LORazepam 0.5 MG TABLET PO (20:30)
[2022-09-02] MEDS: Divalproex Sodium ER 250 MG TAB.ER.24H 1250 MG PO (20:30)
[2022-09-02] MEDS: OLANZapine 10 MG TABLET 20 MG PO (20:30)
[2022-09-03 08:03] VITALS: BP 148/80; PULSE 83; RESP 16; TEMP 36.8; O2SAT 97
[2022-09-03] MEDS: Cyanocobalamin (Vitamin B-12) 100 MCG TABLET PO (08:21)
[2022-09-03] MEDS: amLODIPine Besylate 5 MG TABLET PO (08:21)
[2022-09-03] MEDS: cloNIDine HCL 0.1 MG TABLET PO ×2 (08:21→20:34)
[2022-09-03] MEDS: Multivitamin TABLET 1 TAB PO (08:21)
[2022-09-03] MEDS: lisinopriL 40 MG TABLET PO (08:22)
[2022-09-03] MEDS: Tamsulosin HCL 0.4 MG CAPSULE PO (08:22)
[2022-09-03] MEDS: LORazepam 0.5 MG TABLET PO ×3 (09:12→20:34)
[2022-09-03] MEDS: Glycopyrrolate 1 MG TABLET 0.5 MG PO ×2 (09:12→20:34)
[2022-09-03 09:47] LABS: Valproate 71.9 mcg/mL (50.0-100.0)
--- NOTE | 2022-09-03 10:57 | P.PNPSI_ITS ---
Subjective Subjective Date of Service: 09/03/22 Reason For Visit: Bipolar disorder,SI Subjective Notes: Conditional Voluntary Healthcare Proxy: No Guardianship: No Medical Problems Affecting Mental Status: No Interim History: Depakote increased over the weekend 7418-5779 mg. Pt was sedate and dosage was decreased to 1250. Clonidine tolerated, Olanzapine tolerated, Robinul effective for drooling, Vistaril helpful with sleep. Continues to report cloudiness in thought process. Valproate level pending, FMLA paperwork being worked on. Reports difficulty formulating thoughts into words, not feeling overmedicated, sleep he reports is improved, but with ruminative sx and guilt, what is my end game ? I have betrayed my family . Interested in a couples meeting, continuing medications, discussed neurobiological basis of sheryl, depression, still it is no excuse for what I did . Processing the past months of his sheryl and resulting actions. Medication Compliance: Yes Side effects from medications: Yes (feeling tired) Attending Groups: Intermittent Review of Systems Acute medical concerns: No Medical Review of Systems: unchanged Mental Status Exam Mental Status Exam Patient Appearance: Fatigued Patient Orientation: Person, Place, Time and Situation Level of Consciousness: Alert Patient Behavior: Talkative and Good Eye Contact Mood Description: Depressed Affect Description: Flat Patient Cognition Impaired: No Ability to Follow Directions: Good Speech Pattern: Spontaneous Speech Memory Description: Intact Hallucinations: None Delusions: Not Present Perceptual Disturbances: Derealization Thought Process: Rumination, Goal Oriented and Slowed Thinking (per pt report) Thought Content: positive for [place] and positive for Circumstantial Depressive Symptoms: Difficulty Sleeping, Feelings of Worthlessness, Feelings of Guilt, Unhappiness, Increased Fatigue, Low Self Esteem, Loss of Energy and Difficulty Concentrating Judgement: Fair Diagnostics Vital Signs (24Hr): Vital Signs - 24 hr 09/02/22 18:00 09/03/22 08:03 Temperature 98.2 F 98.3 F Pulse Rate 80 83 Respiratory Rate 16 Blood Pressure 148/80 H Pulse Oximetry 95 97 Oxygen Delivery Method Room Air BMI result Body Mass Index 24.0 Labs Results: 08/28/22 16:22 08/28/22 16:22 Labs: Laboratory Results - last 48 hr 09/03/22 07:41 Valproic Acid 71.9 Imaging Radiology Impressions: ITS Impressions Head CT 08/28/22 16:39 IMPRESSION: Unremarkable CT scan of the head. Specifically evidence of acute territorial infarct or hemorrhage. Medications Medications Current Medications Acetaminophen (Acetaminophen 325 Mg Tablet) 650 mg PO Q6H PRN PRN Reason: Headache/Pain Mild Scale (1-3) Al Hydroxide/Mg Hydroxide (Magnesium Hydrox/Alum Hydrox 30 Ml Oral.Susp) 30 ml PO Q6H PRN PRN Reason: Heartburn/Nausea Amlodipine Besylate (Amlodipine Besylate 5 Mg Tablet) 5 mg PO DAILY [facility]; Protocol Last Admin: 09/03/22 08:21 Dose: 5 mg Clonidine HCl (Clonidine Hcl 0.1 Mg Tablet) 0.1 mg PO BID [facility]; Protocol Last Admin: 09/03/22 08:21 Dose: 0.1 mg Cyanocobalamin (Cyanocobalamin (Vitamin B-12) 100 Mcg Tablet) 100 mcg PO DAILY [facility] Last Admin: 09/03/22 08:21 Dose: 100 mcg Divalproex Sodium (Divalproex Sodium Er 250 Mg Tab.Er.24h) 1,250 mg PO BEDTIME [facility] Last Admin: 09/02/22 20:30 Dose: 1,250 mg Glycopyrrolate (Glycopyrrolate 1 Mg Tablet) 0.5 mg PO BID [facility] Last Admin: 09/03/22 09:12 Dose: 0.5 mg Hydroxyzine HCl (Hydroxyzine Hcl 25 Mg Tablet) 25 mg PO Q6H PRN PRN Reason: Anxiety Last Admin: 08/29/22 20:44 Dose: 25 mg Hydroxyzine HCl (Hydroxyzine Hcl 50 Mg Tablet) 50 mg PO BEDTIME MRX1 PRN PRN Reason: insomnia Lisinopril (Lisinopril 40 Mg Tablet) 40 mg PO DAILY [facility]; Protocol Last Admin: 09/03/22 08:22 Dose: 40 mg Lorazepam (Lorazepam 1 Mg Tablet) 1 mg PO Q4H PRN PRN Reason: Anxiety Last Admin: 08/30/22 20:48 Dose: 1 mg Lorazepam (Lorazepam 0.5 Mg Tablet) 0.5 mg PO TID [facility] Last Admin: 09/03/22 09:12 Dose: 0.5 mg Magnesium Hydroxide (Milk Of Magnesia 30 Ml Oral.Susp) 30 ml PO DAILY PRN PRN Reason: Constipation Multivitamins/Vitamin C (Multivitamin Tablet) 1 tab PO DAILY [facility] Last Admin: 09/03/22 08:21 Dose: 1 tab Olanzapine (Olanzapine 10 Mg Tablet) 20 mg PO BEDTIME [facility] Last Admin: 09/02/22 20:30 Dose: 20 mg Tamsulosin HCl (Tamsulosin Hcl 0.4 Mg Capsule) 0.4 mg PO DAILY [facility] Last Admin: 09/03/22 08:22 Dose: 0.4 mg Allergies Allergies Allergy/AdvReac Type Severity Reaction Status Date / Time No Known Allergies Allergy Verified 08/28/22 16:07 Assessment & Plan Assessment & Plan (1) Bipolar disorder: Status: Acute Code(s): F31.9 - Bipolar disorder, unspecified Assessment and Plan: trying hydroxyzine for sleep tonight ? cloudy thinking due to lorazepam or depakote trial 09/02 increased depkaote maybe have been a bit much for patient-went from 1000 to 1500mg, will dec to 1250mg today Plan 62 yo male, exacerbation of bipolar disorder with recent med changes from Rit otilia, Lexapro, Effexor to Olanzapine. Pt reports having a psychotic decompensation January 2022 [place] the airport[place] He left his , had an affair, and signed a year least in March 2022 while manic. He reports being over-active, over-productive and more disorganized until meds have been changed recently. He presents for ongoing assistance in stabilization of his mood. Plan: B12 100 mcg daily (level 251) Depakote ER 500 mg HS MVI 1 tab daily Glycopyrolate 0.5 mg bid trial -pt reporting excessive salivation 08/31/22 Increase Depakote ER to 1000 mg HS Lorazepam 1 mg bid Increase Olanzapine to 20 mg hs 09/03/22: Schedule couples meeting Address FMLA Continue B12 replacement (level 251) ESR, CRP, RPR, CAT [place] request I spent minutes with the patient and/or on the patient floor today, greater than?50% of which was spent counseling/coordinating care. Patient educated on: diagnosis, medication risk/benefits and therapeutic strategies Informed Consent: understands and further education needed Reason for contiued inpatient stay Substantial Risk for: inability to function and rapid decompensation
--- NOTE | 2022-09-03 14:41 | PC.NURSE ---
Pt participated in [facility] screen on this date. Pt scored a 26/30, indicating cognition in within normal limits, [employer] and nurse aware
[2022-09-03 20:30] VITALS: BP 154/82; PULSE 79; RESP 14; TEMP 37.1
[2022-09-03] MEDS: OLANZapine 10 MG TABLET 20 MG PO (20:34)
[2022-09-03] MEDS: Divalproex Sodium ER 250 MG TAB.ER.24H 1250 MG PO (20:34)
[2022-09-04] MEDS: hydrOXYzine HCL 50 MG TABLET PO (02:47)
[2022-09-04] MEDS: lisinopriL 40 MG TABLET PO (08:30)
[2022-09-04] MEDS: LORazepam 0.5 MG TABLET PO ×3 (08:30→20:01)
[2022-09-04] MEDS: Tamsulosin HCL 0.4 MG CAPSULE PO (08:30)
[2022-09-04] MEDS: cloNIDine HCL 0.1 MG TABLET PO ×2 (08:30→20:01)
[2022-09-04] MEDS: Cyanocobalamin (Vitamin B-12) 100 MCG TABLET PO (08:30)
[2022-09-04] MEDS: Multivitamin TABLET 1 TAB PO (08:30)
[2022-09-04] MEDS: amLODIPine Besylate 5 MG TABLET PO (08:30)
[2022-09-04] MEDS: Glycopyrrolate 1 MG TABLET 0.5 MG PO ×2 (08:31→20:01)
[2022-09-04 09:03] VITALS: BP 168/83; PULSE 78; RESP 16; TEMP 36.6; O2SAT 98
[2022-09-04 09:43] LABS: Erythrocyte Sedimentation Rate 4 MM/HR (0-15)
[2022-09-04 10:07] LABS: C Reactive Protein 0.02 mg/dL (< or = 0.50)
--- NOTE | 2022-09-04 14:40 | HO.PSYCHPN ---
Subjective Subjective Date of Service: 09/04/22 Reason For Visit: Bipolar disorder,SI Interim History: Patient said that he is overall doing okay. Anxious and thinking about the follow-up from recent manic episode. Patient has trouble staying asleep. Reviewed options and patient initially agreed to trazodone but then was ambivalent so left as a p.r.n.. He said that for years he was on Ritalin which helped him sleep. He understands that he may need few more days of stabilization on current medications before this is restarted as it was likely part of what triggered a manic episode. Mental Status Exam Mental Status Exam Patient Appearance: Fatigued Patient Orientation: Person, Place, Time and Situation Level of Consciousness: Alert Patient Behavior: Talkative, Cooperative and Good Eye Contact Mood Description: Calm and Depressed Affect Description: Flat Patient Cognition Impaired: No Ability to Follow Directions: Good Speech Pattern: Clear and Spontaneous Speech Memory Description: Intact Hallucinations: None Delusions: Not Present Perceptual Disturbances: Derealization Thought Process: Rumination, Goal Oriented and Slowed Thinking (per pt report) Thought Content: positive for [place], positive for Circumstantial, positive for Suicidal Ideation (denies) and positive for Homicidal Ideation (denies) Depressive Symptoms: Difficulty Sleeping, Feelings of Worthlessness, Feelings of Guilt, Unhappiness, Increased Fatigue, Low Self Esteem, Loss of Energy and Difficulty Concentrating Judgement: Fair Diagnostics Vital Signs (24Hr): Vital Signs - 24 hr 09/03/22 20:30 09/04/22 09:03 Temperature 98.8 F 97.9 F Pulse Rate 79 78 Respiratory Rate 14 16 Blood Pressure 154/82 H 168/83 H Pulse Oximetry 98 Oxygen Delivery Method Room Air BMI result Body Mass Index 24.0 Labs Results: 08/28/22 16:22 08/28/22 16:22 Labs: Laboratory Results - last 48 hr 09/03/22 09/04/22 09/04/22 07:41 08:23 08:23 ESR 4 C-Reactive Protein 0.02 Valproic Acid 71.9 Imaging Radiology Impressions: ITS Impressions Head CT 08/28/22 16:39 IMPRESSION: Unremarkable CT scan of the head. Specifically evidence of acute territorial infarct or hemorrhage. Head CT 09/03/22 11:44 IMPRESSION: No acute findings. Medications Medications Current Medications Acetaminophen (Acetaminophen 325 Mg Tablet) 650 mg PO Q6H PRN PRN Reason: Headache/Pain Mild Scale (1-3) Al Hydroxide/Mg Hydroxide (Magnesium Hydrox/Alum Hydrox 30 Ml Oral.Susp) 30 ml PO Q6H PRN PRN Reason: Heartburn/Nausea Amlodipine Besylate (Amlodipine Besylate 5 Mg Tablet) 5 mg PO DAILY [facility]; Protocol Last Admin: 09/04/22 08:30 Dose: 5 mg Clonidine HCl (Clonidine Hcl 0.1 Mg Tablet) 0.1 mg PO BID [facility]; Protocol Last Admin: 09/04/22 08:30 Dose: 0.1 mg Cyanocobalamin (Cyanocobalamin (Vitamin B-12) 100 Mcg Tablet) 100 mcg PO DAILY [facility] Last Admin: 09/04/22 08:30 Dose: 100 mcg Divalproex Sodium (Divalproex Sodium Er 250 Mg Tab.Er.24h) 1,250 mg PO BEDTIME [facility] Last Admin: 09/03/22 20:34 Dose: 1,250 mg Glycopyrrolate (Glycopyrrolate 1 Mg Tablet) 0.5 mg PO BID [facility] Last Admin: 09/04/22 08:31 Dose: 0.5 mg Hydroxyzine HCl (Hydroxyzine Hcl 25 Mg Tablet) 25 mg PO Q6H PRN PRN Reason: Anxiety Last Admin: 08/29/22 20:44 Dose: 25 mg Hydroxyzine HCl (Hydroxyzine Hcl 50 Mg Tablet) 50 mg PO BEDTIME MRX1 PRN PRN Reason: insomnia Last Admin: 09/04/22 02:47 Dose: 50 mg Lisinopril (Lisinopril 40 Mg Tablet) 40 mg PO DAILY [facility]; Protocol Last Admin: 09/04/22 08:30 Dose: 40 mg Lorazepam (Lorazepam 1 Mg Tablet) 1 mg PO Q4H PRN PRN Reason: Anxiety Last Admin: 08/30/22 20:48 Dose: 1 mg Lorazepam (Lorazepam 0.5 Mg Tablet) 0.5 mg PO TID [facility] Last Admin: 09/04/22 08:30 Dose: 0.5 mg Magnesium Hydroxide (Milk Of Magnesia 30 Ml Oral.Susp) 30 ml PO DAILY PRN PRN Reason: Constipation Multivitamins/Vitamin C (Multivitamin Tablet) 1 tab PO DAILY [facility] Last Admin: 09/04/22 08:30 Dose: 1 tab Olanzapine (Olanzapine 10 Mg Tablet) 20 mg PO BEDTIME [facility] Last Admin: 09/03/22 20:34 Dose: 20 mg Tamsulosin HCl (Tamsulosin Hcl 0.4 Mg Capsule) 0.4 mg PO DAILY [facility] Last Admin: 09/04/22 08:30 Dose: 0.4 mg Allergies Allergies Allergy/AdvReac Type Severity Reaction Status Date / Time No Known Allergies Allergy Verified 08/28/22 16:07 Assessment & Plan Assessment & Plan (1) Bipolar disorder: Status: Acute Code(s): F31.9 - Bipolar disorder, unspecified Assessment and Plan: trying hydroxyzine for sleep tonight ? cloudy thinking due to lorazepam or depakote trial 09/02 increased depkaote maybe have been a bit much for patient-went from 1000 to 1500mg, will dec to 1250mg today Plan 62 yo male, exacerbation of bipolar disorder with recent med changes from Ritalin, Lexapro, Effexor to Olanzapine. Pt reports having a psychotic decompensation January 2022 [place] the [place] He left his , had an affair, and signed a year least in March 2022 while manic. He reports being over-active, over-productive and more disorganized until meds have been changed recently. He presents for ongoing assistance in stabilization of his mood. Plan: B12 100 mcg daily (level 251) Depakote ER 500 mg HS MVI 1 tab daily Glycopyrolate 0.5 mg bid trial -pt reporting excessive salivation 08/31/22 Increase Depakote ER to 1000 mg HS Lorazepam 1 mg bid Increase Olanzapine to 20 mg hs 09/03/22: Schedule couples meeting Address FMLA Continue B12 replacement (level 251) ESR, CRP, RPR, CAT [place] request 09/04/22 Patient has trouble staying asleep; ambivalent about trazodone so left as a p.r.n.. in past, on Ritalin, helped him sleep. He understands that he may need few more days of stabilization on current medications before this is restarted as it was likely part of what triggered a manic episode. I spent minutes with the patient and/or on the patient floor today, greater than?50% of which was spent counseling/coordinating care. Patient educated on: diagnosis and medication risk/benefits Informed Consent: understands Reason for contiued inpatient stay Substantial Risk for: stable for discharge
[2022-09-04] MEDS: OLANZapine 10 MG TABLET 20 MG PO (20:01)
[2022-09-04] MEDS: Divalproex Sodium ER 250 MG TAB.ER.24H 1250 MG PO (20:01)
[2022-09-04 20:11] VITALS: BP 168/92; PULSE 72
[2022-09-05] MEDS: LORazepam 1 MG TABLET PO (00:07)
[2022-09-05 05:52] LABS: Syphilis Screen Nonreactive (Nonreactive)
[2022-09-05 07:52] VITALS: BP 148/87; PULSE 75; RESP 16; TEMP 37; O2SAT 99
[2022-09-05] MEDS: Multivitamin TABLET 1 TAB PO (08:58)
[2022-09-05] MEDS: Tamsulosin HCL 0.4 MG CAPSULE PO (08:58)
[2022-09-05] MEDS: lisinopriL 40 MG TABLET PO (08:58)
[2022-09-05] MEDS: amLODIPine Besylate 5 MG TABLET PO (08:58)
[2022-09-05] MEDS: cloNIDine HCL 0.1 MG TABLET PO ×2 (08:58→19:25)
[2022-09-05] MEDS: Glycopyrrolate 1 MG TABLET 0.5 MG PO ×2 (08:58→19:25)
[2022-09-05] MEDS: Cyanocobalamin (Vitamin B-12) 100 MCG TABLET PO (08:59)
[2022-09-05] MEDS: LORazepam 0.5 MG TABLET PO ×3 (08:59→19:30)
--- NOTE | 2022-09-05 12:14 | HO.PSYCHPN ---
Subjective Subjective Date of Service: 09/05/22 Reason For Visit: Bipolar disorder,SI Subjective Notes: Conditional Voluntary Healthcare Proxy: No Guardianship: No Medical Problems Affecting Mental Status: No Interim History: Met with pt, , Portia Duffy [facility] to review and complete [facility] paperwork, draft a letter to pt's landlord requesting release from his lease and to review meds, diagnostics and answer family questions. Pt continues with racing thoughts effecting sleep-will be trialing Trazodone. Worried about what happens at discharge. Reports feeling improved after the meeting with more relief . Assured pt we are all here to assist in his recovery efforts. Medication Compliance: Yes Side effects from medications: No Attending Groups: Yes Review of Systems Acute medical concerns: No Medical Review of Systems: unchanged Mental Status Exam Mental Status Exam Patient Appearance: Appropriate Patient Orientation: Person, Place, Time and Situation Level of Consciousness: Alert Patient Behavior: Talkative, Cooperative and Good Eye Contact Mood Description: Anxious and Apprehensive Affect Description: Anxious and Apprehensive Patient Cognition Impaired: No Ability to Follow Directions: Good Speech Pattern: Spontaneous Speech Memory Description: Episodic Impaired Hallucinations: None Delusions: Not Present Perceptual Disturbances: Depersonalization and Derealization Thought Process: Rumination (overwhelmed) and Goal Oriented Thought Content: positive for Goal Oriented and positive for Suicidal Ideation (denies) Depressive Symptoms: Increased Anxiety, Insomnia, Diff. Making Decisions, Increased Irritability, Difficulty Sleeping, Loss of Int. in Activity, Feelings of Worthlessness, Hopelessness, Feelings of Guilt, Increased Fatigue, Low Self Esteem, Loss of Energy and Difficulty Concentrating Abnormal Motor Activity Signs and Symptoms: Restlessness Judgement: Fair Diagnostics Vital Signs (24Hr): Vital Signs - 24 hr 09/04/22 20:11 09/05/22 07:52 Temperature 98.6 F Pulse Rate 72 75 Respiratory Rate 16 Blood Pressure 168/92 H 148/87 H Pulse Oximetry 99 Oxygen Delivery Method Room Air BMI result Body Mass Index 24.0 Labs Results: 08/28/22 16:22 08/28/22 16:22 Labs: Laboratory Results - last 48 hr 09/04/22 09/04/22 09/04/22 08:23 08:23 08:23 ESR 4 C-Reactive Protein 0.02 T.pallidum Ab (EIA) Nonreactive Imaging Radiology Impressions: ITS Impressions Head CT 08/28/22 16:39 IMPRESSION: Unremarkable CT scan of the head. Specifically evidence of acute territorial infarct or hemorrhage. Head CT 09/03/22 11:44 IMPRESSION: No acute findings. Medications Medications Current Medications Acetaminophen (Acetaminophen 325 Mg Tablet) 650 mg PO Q6H PRN PRN Reason: Headache/Pain Mild Scale (1-3) Al Hydroxide/Mg Hydroxide (Magnesium Hydrox/Alum Hydrox 30 Ml Oral.Susp) 30 ml PO Q6H PRN PRN Reason: Heartburn/Nausea Amlodipine Besylate (Amlodipine Besylate 5 Mg Tablet) 5 mg PO DAILY [facility]; Protocol Last Admin: 09/05/22 08:58 Dose: 5 mg Clonidine HCl (Clonidine Hcl 0.1 Mg Tablet) 0.1 mg PO BID [facility]; Protocol Last Admin: 09/05/22 08:58 Dose: 0.1 mg Cyanocobalamin (Cyanocobalamin (Vitamin B-12) 100 Mcg Tablet) 100 mcg PO DAILY [facility] Last Admin: 09/05/22 08:59 Dose: 100 mcg Divalproex Sodium (Divalproex Sodium Er 250 Mg Tab.Er.24h) 1,250 mg PO BEDTIME RUCHI Last Admin: 09/04/22 20:01 Dose: 1,250 mg Glycopyrrolate (Glycopyrrolate 1 Mg Tablet) 0.5 mg PO BID [facility] Last Admin: 09/05/22 08:58 Dose: 0.5 mg Hydroxyzine HCl (Hydroxyzine Hcl 25 Mg Tablet) 25 mg PO Q6H PRN PRN Reason: Anxiety Last Admin: 08/29/22 20:44 Dose: 25 mg Hydroxyzine HCl (Hydroxyzine Hcl 50 Mg Tablet) 50 mg PO BEDTIME MRX1 PRN PRN Reason: insomnia Last Admin: 09/04/22 02:47 Dose: 50 mg Lisinopril (Lisinopril 40 Mg Tablet) 40 mg PO DAILY [facility]; Protocol Last Admin: 09/05/22 08:58 Dose: 40 mg Lorazepam (Lorazepam 1 Mg Tablet) 1 mg PO Q4H PRN PRN Reason: Anxiety Last Admin: 09/05/22 00:07 Dose: 1 mg Lorazepam (Lorazepam 0.5 Mg Tablet) 0.5 mg PO TID [facility] Last Admin: 09/05/22 08:59 Dose: 0.5 mg Magnesium Hydroxide (Milk Of Magnesia 30 Ml Oral.Susp) 30 ml PO DAILY PRN PRN Reason: Constipation Multivitamins/Vitamin C (Multivitamin Tablet) 1 tab PO DAILY [facility] Last Admin: 09/05/22 08:58 Dose: 1 tab Olanzapine (Olanzapine 10 Mg Tablet) 20 mg PO BEDTIME [facility] Last Admin: 09/04/22 20:01 Dose: 20 mg Tamsulosin HCl (Tamsulosin Hcl 0.4 Mg Capsule) 0.4 mg PO DAILY [facility] Last Admin: 09/05/22 08:58 Dose: 0.4 mg Trazodone HCl (Trazodone Hcl 50 Mg Tablet) 50 mg PO BEDTIME PRN PRN Reason: insomnia Allergies Allergies Allergy/AdvReac Type Severity Reaction Status Date / Time No Known Allergies Allergy Verified 08/28/22 16:07 Assessment & Plan Assessment & Plan (1) Bipolar disorder: Status: Acute Code(s): F31.9 - Bipolar disorder, unspecified Assessment and Plan: trying hydroxyzine for sleep tonight ? cloudy thinking due to lorazepam or depakote trial 09/02 increased depkaote maybe have been a bit much for patient-went from 1000 to 1500mg, will dec to 1250mg today Plan 62 yo male, exacerbation of bipolar disorder with recent med changes from Ritalin, Lexapro, Effexor to Olanzapine. Pt reports having a psychotic decompensation January 2022 with [place] the airport. He left his , had an affair, and signed a year least in March 2022 while manic. He reports being over-active, over-productive and more disorganized until meds have been changed recently. He presents for ongoing assistance in stabilization of his mood. Plan: B12 100 mcg daily (level 251) Depakote ER 500 mg HS MVI 1 tab daily Glycopyrolate 0.5 mg bid trial -pt reporting excessive salivation 08/31/22 Increase Depakote ER to 1000 mg HS Lorazepam 1 mg bid Increase Olanzapine to 20 mg hs 09/03/22: Schedule couples meeting Address FMLA Continue B12 replacement (level 251) ESR, CRP, RPR, CAT [place] request 09/04/22 Patient has trouble staying asleep; ambivalent about trazodone so left as a p.r.n.. in past, on Ritalin, helped him sleep. He understands that he may need few more days of stabilization on current medications before this is restarted as it was likely part of what triggered a manic episode. 09/05/22 Wellbutrin 75 mg a.m. Trazodone trial to continue I spent minutes with the patient and/or on the patient floor today, greater than?50% of which was spent counseling/coordinating care. Patient educated on: medication risk/benefits and therapeutic strategies Informed Consent: understands and further education needed Reason for contiued inpatient stay Substantial Risk for: inability to function and rapid decompensation
[2022-09-05 18:00] VITALS: BP 118/67; PULSE 75; RESP 16; TEMP 36; O2SAT 97
[2022-09-05] MEDS: Divalproex Sodium ER 250 MG TAB.ER.24H 1250 MG PO (19:25)
[2022-09-05] MEDS: traZODone HCL 50 MG TABLET PO (19:29)
[2022-09-05] MEDS: OLANZapine 10 MG TABLET 20 MG PO (19:30)
[2022-09-05] MEDS: hydrOXYzine HCL 25 MG TABLET PO (23:42)
[2022-09-06 07:00] VITALS: BMI 25.7
[2022-09-06 08:40] VITALS: BP 142/91; PULSE 80; TEMP 36.4
[2022-09-06] MEDS: Cyanocobalamin (Vitamin B-12) 100 MCG TABLET PO (08:53)
[2022-09-06] MEDS: Multivitamin TABLET 1 TAB PO (08:53)
[2022-09-06] MEDS: buPROPion HCL 75 MG TABLET PO (08:53)
[2022-09-06] MEDS: cloNIDine HCL 0.1 MG TABLET PO ×2 (08:53→20:25)
[2022-09-06] MEDS: Glycopyrrolate 1 MG TABLET 0.5 MG PO ×2 (08:54→20:25)
[2022-09-06] MEDS: Tamsulosin HCL 0.4 MG CAPSULE PO (08:54)
[2022-09-06] MEDS: amLODIPine Besylate 5 MG TABLET PO (08:54)
[2022-09-06] MEDS: lisinopriL 40 MG TABLET PO (08:55)
[2022-09-06] MEDS: LORazepam 0.5 MG TABLET PO ×3 (08:55→20:25)
--- NOTE | 2022-09-06 15:51 | HO.PSYCHPN ---
Subjective Subjective Date of Service: 09/06/22 Reason For Visit: Bipolar disorder,SI Subjective Notes: Conditional Voluntary Healthcare Proxy: No Guardianship: No Medical Problems Affecting Mental Status: No Interim History: Poor sleep reported for half of the night as milieu was loud and active. Believes Trazodone helped. Asks to add prn to the 50 mg as it did work for a time. He is experiencing some hangover today- education provided on half life States he felt the family meeting went well and he has more relief. Our focus now is to stabilize sleep Medication Compliance: Yes Side effects from medications: No Attending Groups: Yes Review of Systems Acute medical concerns: No Medical Review of Systems: unchanged Mental Status Exam Mental Status Exam Patient Appearance: Appropriate Patient Orientation: Person, Place, Time and Situation Level of Consciousness: Alert Patient Behavior: Talkative, Cooperative and Good Eye Contact Mood Description: Anxious and Apprehensive Affect Description: Anxious and Apprehensive Patient Cognition Impaired: No Ability to Follow Directions: Good Speech Pattern: Spontaneous Speech Memory Description: Episodic Impaired Hallucinations: None Delusions: Not Present Perceptual Disturbances: Depersonalization and Derealization Thought Process: Rumination (overwhelmed) and Goal Oriented Thought Content: positive for Goal Oriented and positive for Suicidal Ideation (denies) Depressive Symptoms: Increased Anxiety, Insomnia, Diff. Making Decisions, Increased Irritability, Difficulty Sleeping, Loss of Int. in Activity, Feelings of Worthlessness, Hopelessness, Feelings of Guilt, Increased Fatigue, Low Self Esteem, Loss of Energy and Difficulty Concentrating Abnormal Motor Activity Signs and Symptoms: Restlessness Judgement: Fair Diagnostics Vital Signs (24Hr): Vital Signs - 24 hr 09/05/22 18:00 09/06/22 08:40 Temperature 96.8 F 97.5 F Pulse Rate 75 80 Respiratory Rate 16 Blood Pressure 118/67 142/91 H Pulse Oximetry 97 Oxygen Delivery Method Room Air BMI result Body Mass Index 24.0 Labs Results: 08/28/22 16:22 08/28/22 16:22 Labs: Laboratory Results - last 48 hr 09/04/22 08:23 T.pallidum Ab (EIA) Nonreactive Imaging Radiology Impressions: ITS Impressions Head CT 08/28/22 16:39 IMPRESSION: Unremarkable CT scan of the head. Specifically evidence of acute territorial infarct or hemorrhage. Head CT 09/03/22 11:44 IMPRESSION: No acute findings. Medications Medications Current Medications Acetaminophen (Acetaminophen 325 Mg Tablet) 650 mg PO Q6H PRN PRN Reason: Headache/Pain Mild Scale (1-3) Al Hydroxide/Mg Hydroxide (Magnesium Hydrox/Alum Hydrox 30 Ml Oral.Susp) 30 ml PO Q6H PRN PRN Reason: Heartburn/Nausea Amlodipine Besylate (Amlodipine Besylate 5 Mg Tablet) 5 mg PO DAILY [facility]; Protocol Last Admin: 09/06/22 08:54 Dose: 5 mg Bupropion HCl (Bupropion Hcl 75 Mg Tablet) 75 mg PO DAILY [facility] Last Admin: 09/06/22 08:53 Dose: 75 mg Clonidine HCl (Clonidine Hcl 0.1 Mg Tablet) 0.1 mg PO BID [facility]; Protocol Last Admin: 09/06/22 08:53 Dose: 0.1 mg Cyanocobalamin (Cyanocobalamin (Vitamin B-12) 100 Mcg Tablet) 100 mcg PO DAILY [facility] Last Admin: 09/06/22 08:53 Dose: 100 mcg Divalproex Sodium (Divalproex Sodium Er 250 Mg Tab.Er.24h) 1,250 mg PO BEDTIME [facility] Last Admin: 09/05/22 19:25 Dose: 1,250 mg Glycopyrrolate (Glycopyrrolate 1 Mg Tablet) 0.5 mg PO BID [facility] Last Admin: 09/06/22 08:54 Dose: 0.5 mg Hydroxyzine HCl (Hydroxyzine Hcl 25 Mg Tablet) 25 mg PO Q6H PRN PRN Reason: Anxiety Last Admin: 09/05/22 23:42 Dose: 25 mg Hydroxyzine HCl (Hydroxyzine Hcl 50 Mg Tablet) 50 mg PO BEDTIME MRX1 PRN PRN Reason: insomnia Last Admin: 09/04/22 02:47 Dose: 50 mg Lisinopril (Lisinopril 40 Mg Tablet) 40 mg PO DAILY [facility]; Protocol Last Admin: 09/06/22 08:55 Dose: 40 mg Lorazepam (Lorazepam 1 Mg Tablet) 1 mg PO Q4H PRN PRN Reason: Anxiety Last Admin: 09/05/22 00:07 Dose: 1 mg Lorazepam (Lorazepam 0.5 Mg Tablet) 0.5 mg PO TID [facility] Last Admin: 09/06/22 14:54 Dose: 0.5 mg Magnesium Hydroxide (Milk Of Magnesia 30 Ml Oral.Susp) 30 ml PO DAILY PRN PRN Reason: Constipation Multivitamins/Vitamin C (Multivitamin Tablet) 1 tab PO DAILY [facility] Last Admin: 09/06/22 08:53 Dose: 1 tab Olanzapine (Olanzapine 10 Mg Tablet) 20 mg PO BEDTIME [facility] Last Admin: 09/05/22 19:30 Dose: 20 mg Tamsulosin HCl (Tamsulosin Hcl 0.4 Mg Capsule) 0.4 mg PO DAILY [facility] Last Admin: 09/06/22 08:54 Dose: 0.4 mg Trazodone HCl (Trazodone Hcl 50 Mg Tablet) 50 mg PO BEDTIME [facility] Last Admin: 09/05/22 19:29 Dose: 50 mg Trazodone HCl (Trazodone Hcl 50 Mg Tablet) 50 mg PO BEDTIME PRN PRN Reason: after scheduled dose prn insomnia Allergies Allergies Allergy/AdvReac Type Severity Reaction Status Date / Time No Known Allergies Allergy Verified 08/28/22 16:07 Assessment & Plan Assessment & Plan (1) Bipolar disorder: Status: Acute Code(s): F31.9 - Bipolar disorder, unspecified Assessment and Plan: trying hydroxyzine for sleep tonight ? cloudy thinking due to lorazepam or depakote trial 09/02 increased depkaote maybe have been a bit much for patient-went from 1000 to 1500mg, will dec to 1250mg today Plan 62 yo male, exacerbation of bipolar disorder with recent med changes from Ritalin, Lexapro, Effexor to Olanzapine. Pt reports having a psychotic decompensation January 2022 [place] the airport. He left his , had an affair, and signed a year least in March 2022 while manic. He reports being over-active, over-productive and more disorganized until meds have been changed recently. He presents for ongoing assistance in stabilization of his mood. Plan: B12 100 mcg daily (level 251) Depakote ER 500 mg HS MVI 1 tab daily Glycopyrolate 0.5 mg bid trial -pt reporting excessive salivation 08/31/22 Increase Depakote ER to 1000 mg HS Lorazepam 1 mg bid Increase Olanzapine to 20 mg hs 09/03/22: Schedule couples meeting Address FMLA Continue B12 replacement (level 251) ESR, CRP, RPR, CAT [place] request 09/04/22 Patient has trouble staying asleep; ambivalent about trazodone so left as a p.r.n.. in past, on Ritalin, helped him sleep. He understands that he may need few more days of stabilization on current medications before this is restarted as it was likely part of what triggered a manic episode. 09/05/22 Wellbutrin 75 mg a.m. Trazodone trial to continue 09/06/22 Add Trazodone 50 mg hs prn to standing dosage. I spent minutes with the patient and/or on the patient floor today, greater than?50% of which was spent counseling/coordinating care. Patient educated on: medication risk/benefits and therapeutic strategies Informed Consent: understands and further education needed Reason for contiued inpatient stay Substantial Risk for: inability to function and rapid decompensation
[2022-09-06 20:23] VITALS: BP 160/96; PULSE 81; TEMP 36.6
[2022-09-06] MEDS: hydrOXYzine HCL 25 MG TABLET PO (20:25)
[2022-09-06] MEDS: OLANZapine 10 MG TABLET 20 MG PO (20:25)
[2022-09-06] MEDS: Divalproex Sodium ER 250 MG TAB.ER.24H 1250 MG PO (20:25)
[2022-09-06] MEDS: traZODone HCL 50 MG TABLET PO (20:25)
[2022-09-06] MEDS: hydrOXYzine HCL 50 MG TABLET PO (23:56)
[2022-09-07 08:30] VITALS: BP 142/90; PULSE 73; TEMP 36.6
[2022-09-07] MEDS: Cyanocobalamin (Vitamin B-12) 100 MCG TABLET PO (09:14)
[2022-09-07] MEDS: lisinopriL 40 MG TABLET PO (09:14)
[2022-09-07] MEDS: Glycopyrrolate 1 MG TABLET 0.5 MG PO ×2 (09:14→20:16)
[2022-09-07] MEDS: LORazepam 0.5 MG TABLET PO ×3 (09:15→20:16)
[2022-09-07] MEDS: amLODIPine Besylate 5 MG TABLET PO (09:15)
[2022-09-07] MEDS: Tamsulosin HCL 0.4 MG CAPSULE PO (09:15)
[2022-09-07] MEDS: Multivitamin TABLET 1 TAB PO (09:15)
[2022-09-07] MEDS: buPROPion HCL 75 MG TABLET PO (09:15)
[2022-09-07] MEDS: cloNIDine HCL 0.1 MG TABLET PO ×2 (09:26→20:23)
--- NOTE | 2022-09-07 15:18 | HO.PSYCHPN ---
Subjective Subjective Date of Service: 09/07/22 Reason For Visit: Bipolar disorder,SI Subjective Notes: Conditional Voluntary Healthcare Proxy: No Guardianship: No Medical Problems Affecting Mental Status: No Interim History: Reports feeling calmer. Things seem to be coming together. [place] today that he will be able to live with brother in law and sister in law which is close to family home. Continues to work on sleep hygiene. Discussed difficulty with the high level of noise on the unit-people speaking loudly, checks-all interfere with his sleep. Working with Trazodone, Hydroxyzine. Overall, feeling on the right track Medication Compliance: Yes Side effects from medications: No Attending Groups: Intermittent Review of Systems Acute medical concerns: No Medical Review of Systems: unchanged Mental Status Exam Mental Status Exam Patient Appearance: Appropriate Patient Orientation: Person, Place, Time and Situation Level of Consciousness: Alert Patient Behavior: Talkative, Cooperative and Good Eye Contact Mood Description: Anxious and Apprehensive Affect Description: Anxious and Apprehensive Patient Cognition Impaired: No Ability to Follow Directions: Good Speech Pattern: Spontaneous Speech Memory Description: Episodic Impaired Hallucinations: None Delusions: Not Present Perceptual Disturbances: Depersonalization and Derealization Thought Process: Rumination (overwhelmed) and Goal Oriented Thought Content: positive for Goal Oriented and positive for Suicidal Ideation (denies) Depressive Symptoms: Increased Anxiety, Insomnia, Diff. Making Decisions, Increased Irritability, Difficulty Sleeping, Loss of Int. in Activity, Feelings of Worthlessness, Hopelessness, Feelings of Guilt, Increased Fatigue, Low Self Esteem, Loss of Energy and Difficulty Concentrating Abnormal Motor Activity Signs and Symptoms: Restlessness Judgement: Fair Diagnostics Vital Signs (24Hr): Vital Signs - 24 hr 09/06/22 20:23 09/07/22 08:30 Temperature 98 F 98 F Pulse Rate 81 73 Blood Pressure 160/96 H 142/90 H BMI result Body Mass Index 25.7 Labs Results: 08/28/22 16:22 08/28/22 16:22 Imaging Radiology Impressions: ITS Impressions Head CT 08/28/22 16:39 IMPRESSION: Unremarkable CT scan of the head. Specifically evidence of acute territorial infarct or hemorrhage. Head CT 09/03/22 11:44 IMPRESSION: No acute findings. Medications Medications Current Medications Acetaminophen (Acetaminophen 325 Mg Tablet) 650 mg PO Q6H PRN PRN Reason: Headache/Pain Mild Scale (1-3) Al Hydroxide/Mg Hydroxide (Magnesium Hydrox/Alum Hydrox 30 Ml Oral.Susp) 30 ml PO Q6H PRN PRN Reason: Heartburn/Nausea Amlodipine Besylate (Amlodipine Besylate 5 Mg Tablet) 5 mg PO DAILY [facility]; Protocol Last Admin: 09/07/22 09:15 Dose: 5 mg Bupropion HCl (Bupropion Hcl 75 Mg Tablet) 75 mg PO DAILY [facility] Last Admin: 09/07/22 09:15 Dose: 75 mg Clonidine HCl (Clonidine Hcl 0.1 Mg Tablet) 0.1 mg PO BID [facility]; Protocol Last Admin: 09/07/22 09:26 Dose: 0.1 mg Cyanocobalamin (Cyanocobalamin (Vitamin B-12) 100 Mcg Tablet) 100 mcg PO DAILY [facility] Last Admin: 09/07/22 09:14 Dose: 100 mcg Divalproex Sodium (Divalproex Sodium Er 250 Mg Tab.Er.24h) 1,250 mg PO BEDTIME [facility]CHI Last Admin: 09/06/22 20:25 Dose: 1,250 mg Glycopyrrolate (Glycopyrrolate 1 Mg Tablet) 0.5 mg PO BID [facility] Last Admin: 09/07/22 09:14 Dose: 0.5 mg Hydroxyzine HCl (Hydroxyzine Hcl 25 Mg Tablet) 25 mg PO Q6H PRN PRN Reason: Anxiety Last Admin: 09/06/22 20:25 Dose: 25 mg Hydroxyzine HCl (Hydroxyzine Hcl 50 Mg Tablet) 50 mg PO BEDTIME MRX1 PRN PRN Reason: insomnia Last Admin: 09/06/22 23:56 Dose: 50 mg Lisinopril (Lisinopril 40 Mg Tablet) 40 mg PO DAILY [facility]; Protocol Last Admin: 09/07/22 09:14 Dose: 40 mg Lorazepam (Lorazepam 1 Mg Tablet) 1 mg PO Q4H PRN PRN Reason: Anxiety Last Admin: 09/05/22 00:07 Dose: 1 mg Lorazepam (Lorazepam 0.5 Mg Tablet) 0.5 mg PO TID [facility] Last Admin: 09/07/22 14:47 Dose: 0.5 mg Magnesium Hydroxide (Milk Of Magnesia 30 Ml Oral.Susp) 30 ml PO DAILY PRN PRN Reason: Constipation Multivitamins/Vitamin C (Multivitamin Tablet) 1 tab PO DAILY [facility] Last Admin: 09/07/22 09:15 Dose: 1 tab Olanzapine (Olanzapine 10 Mg Tablet) 20 mg PO BEDTIME [facility] Last Admin: 09/06/22 20:25 Dose: 20 mg Tamsulosin HCl (Tamsulosin Hcl 0.4 Mg Capsule) 0.4 mg PO DAILY [facility] Last Admin: 09/07/22 09:15 Dose: 0.4 mg Trazodone HCl (Trazodone Hcl 50 Mg Tablet) 50 mg PO BEDTIME [facility] Last Admin: 09/06/22 20:25 Dose: 50 mg Trazodone HCl (Trazodone Hcl 50 Mg Tablet) 50 mg PO BEDTIME PRN PRN Reason: after scheduled dose prn insomnia Allergies Allergies Allergy/AdvReac Type Severity Reaction Status Date / Time No Known Allergies Allergy Verified 08/28/22 16:07 Assessment & Plan Assessment & Plan (1) Bipolar disorder: Status: Acute Code(s): F31.9 - Bipolar disorder, unspecified Assessment and Plan: trying hydroxyzine for sleep tonight ? cloudy thinking due to lorazepam or depakote trial 09/02 increased depkaote maybe have been a bit much for patient-went from 1000 to 1500mg, will dec to 1250mg today Plan 62 yo male, exacerbation of bipolar disorder with recent med changes from Ritalin, Lexapro, Effexor to Olanzapine. Pt reports having a psychotic decompensation [place] 2022 [place] He left his , had an affair, and signed a year least in March 2022 while manic. He reports being over-active, over-productive and more disorganized until meds have been changed recently. He presents for ongoing assistance in stabilization of his mood. Plan: B12 100 mcg daily (level 251) Depakote ER 500 mg HS MVI 1 tab daily Glycopyrolate 0.5 mg bid trial -pt reporting excessive salivation 08/31/22 Increase Depakote ER to 1000 mg HS Lorazepam 1 mg bid Increase Olanzapine to 20 mg hs 09/03/22: Schedule couples meeting Address FMLA Continue B12 replacement (level 251) ESR, CRP, RPR, CAT [place] request 09/04/22 Patient has trouble staying asleep; ambivalent about trazodone so left as a p.r.n.. in past, on Ritalin, helped him sleep. He understands that he may need few more days of stabilization on current medications before this is restarted as it was likely part of what triggered a manic episode. 09/05/22 Wellbutrin 75 mg a.m. Trazodone trial to continue 09/06/22 Add Trazodone 50 mg hs prn to standing dosage. 09/07/22 Continue to work on sleep quality I spent minutes with the patient and/or on the patient floor today, greater than?50% of which was spent counseling/coordinating care. Patient educated on: medication risk/benefits and therapeutic strategies Informed Consent: understands and further education needed Reason for contiued inpatient stay Substantial Risk for: rapid decompensation
[2022-09-07] MEDS: OLANZapine 10 MG TABLET 20 MG PO (20:23)
[2022-09-07] MEDS: traZODone HCL 50 MG TABLET PO ×2 (20:23→21:06)
[2022-09-07] MEDS: Divalproex Sodium ER 250 MG TAB.ER.24H 1250 MG PO (20:23)
[2022-09-07 20:24] VITALS: BP 134/82; PULSE 73; TEMP 36.6
[2022-09-08 07:52] VITALS: BP 141/76; PULSE 69; RESP 16; TEMP 37; O2SAT 98
[2022-09-08] MEDS: Glycopyrrolate 1 MG TABLET 0.5 MG PO ×2 (08:21→20:08)
[2022-09-08] MEDS: Multivitamin TABLET 1 TAB PO (08:21)
[2022-09-08] MEDS: buPROPion HCL 75 MG TABLET PO (08:21)
[2022-09-08] MEDS: LORazepam 0.5 MG TABLET PO ×3 (08:21→20:08)
[2022-09-08] MEDS: cloNIDine HCL 0.1 MG TABLET PO ×2 (08:21→20:08)
[2022-09-08] MEDS: Tamsulosin HCL 0.4 MG CAPSULE PO (08:22)
[2022-09-08] MEDS: lisinopriL 40 MG TABLET PO (08:22)
[2022-09-08] MEDS: Cyanocobalamin (Vitamin B-12) 100 MCG TABLET PO (08:22)
[2022-09-08] MEDS: amLODIPine Besylate 5 MG TABLET PO (08:22)
--- NOTE | 2022-09-08 15:00 | P.PNPSI_ITS ---
Subjective Subjective Date of Service: 09/08/22 Reason For Visit: Bipolar disorder,SI Medical Problems Affecting Mental Status: No Interim History: Met with patient. Chart reviewed. Discussed with Nursing. Overall patient reports feeling positive. Well supported. Euthymic. Sleep good. Went over medications and indications. Reports feeling thankful he can stay with his brother unwell after discharge. Reports they are understanding and supportive, despite him treating them badly when manic. Very engaged on the unit and attending groups. Looking forward to discharge planning and working with primary team after the weekend Medication Compliance: Yes Side effects from medications: No Attending Groups: Yes Review of Systems Acute medical concerns: No Review of Systems Review of Systems Unremarkable Mental Status Exam Mental Status Exam Narrative: Pleasant. Engaged. Appropriately dressed. Organized. Euthymic. No SI. No HI. No agitation. No psychosis. Insight and judgment good Diagnostics Vital Signs (24Hr): Vital Signs - 24 hr 09/07/22 20:24 09/08/22 07:52 Temperature 97.8 F 98.6 F Pulse Rate 73 69 Respiratory Rate 16 Blood Pressure 134/82 141/76 H Pulse Oximetry 98 Oxygen Delivery Method Room Air BMI result Body Mass Index 25.7 Labs Results: 08/28/22 16:22 08/28/22 16:22 Imaging Radiology Impressions: ITS Impressions Head CT 08/28/22 16:39 IMPRESSION: Unremarkable CT scan of the head. Specifically evidence of acute territorial infarct or hemorrhage. Head CT 09/03/22 11:44 IMPRESSION: No acute findings. Medications Medications Current Medications Acetaminophen (Acetaminophen 325 Mg Tablet) 650 mg PO Q6H PRN PRN Reason: Headache/Pain Mild Scale (1-3) Al Hydroxide/Mg Hydroxide (Magnesium Hydrox/Alum Hydrox 30 Ml Oral.Susp) 30 ml PO Q6H PRN PRN Reason: Heartburn/Nausea Amlodipine Besylate (Amlodipine Besylate 5 Mg Tablet) 5 mg PO DAILY [facility]; Protocol Last Admin: 09/08/22 08:22 Dose: 5 mg Bupropion HCl (Bupropion Hcl 75 Mg Tablet) 75 mg PO DAILY [facility] Last Admin: 09/08/22 08:21 Dose: 75 mg Clonidine HCl (Clonidine Hcl 0.1 Mg Tablet) 0.1 mg PO BID [facility]; Protocol Last Admin: 09/08/22 08:21 Dose: 0.1 mg Cyanocobalamin (Cyanocobalamin (Vitamin B-12) 100 Mcg Tablet) 100 mcg PO DAILY [facility] Last Admin: 09/08/22 08:22 Dose: 100 mcg Divalproex Sodium (Divalproex Sodium Er 250 Mg Tab.Er.24h) 1,250 mg PO BEDTIME [facility] Last Admin: 09/07/22 20:23 Dose: 1,250 mg Glycopyrrolate (Glycopyrrolate 1 Mg Tablet) 0.5 mg PO BID [facility] Last Admin: 09/08/22 08:21 Dose: 0.5 mg Hydroxyzine HCl (Hydroxyzine Hcl 25 Mg Tablet) 25 mg PO Q6H PRN PRN Reason: Anxiety Last Admin: 09/06/22 20:25 Dose: 25 mg Hydroxyzine HCl (Hydroxyzine Hcl 50 Mg Tablet) 50 mg PO BEDTIME MRX1 PRN PRN Reason: insomnia Last Admin: 09/06/22 23:56 Dose: 50 mg Lisinopril (Lisinopril 40 Mg Tablet) 40 mg PO DAILY [facility]; Protocol Last Admin: 09/08/22 08:22 Dose: 40 mg Lorazepam (Lorazepam 1 Mg Tablet) 1 mg PO Q4H PRN PRN Reason: Anxiety Last Admin: 09/05/22 00:07 Dose: 1 mg Lorazepam (Lorazepam 0.5 Mg Tablet) 0.5 mg PO TID [facility] Last Admin: 09/08/22 14:51 Dose: 0.5 mg Magnesium Hydroxide (Milk Of Magnesia 30 Ml Oral.Susp) 30 ml PO DAILY PRN PRN Reason: Constipation Multivitamins/Vitamin C (Multivitamin Tablet) 1 tab PO DAILY [facility] Last Admin: 09/08/22 08:21 Dose: 1 tab Olanzapine (Olanzapine 10 Mg Tablet) 20 mg PO BEDTIME [facility] Last Admin: 09/07/22 20:23 Dose: 20 mg Tamsulosin HCl (Tamsulosin Hcl 0.4 Mg Capsule) 0.4 mg PO DAILY [facility] Last Admin: 09/08/22 08:22 Dose: 0.4 mg Trazodone HCl (Trazodone Hcl 50 Mg Tablet) 50 mg PO BEDTIME [facility] Last Admin: 09/07/22 21:06 Dose: 50 mg Trazodone HCl (Trazodone Hcl 50 Mg Tablet) 50 mg PO BEDTIME PRN PRN Reason: after scheduled dose prn insomnia Allergies Allergies Allergy/AdvReac Type Severity Reaction Status Date / Time No Known Allergies Allergy Verified 08/28/22 16:07 Assessment & Plan Assessment & Plan (1) Bipolar disorder: Status: Acute Code(s): F31.9 - Bipolar disorder, unspecified Assessment and Plan: trying hydroxyzine for sleep tonight ? cloudy thinking due to lorazepam or depakote trial 09/02 increased depkaote maybe have been a bit much for patient-went from 1000 to 1500mg, will dec to 1250mg today Plan 62 yo male, exacerbation of bipolar disorder with recent med changes from Ritalin, Lexapro, Effexor to Olanzapine. Pt reports having a psychotic decompensation [place] 2022 [place] airport[place] He left his , had an affair, and signed a year least in March 2022 while manic. He reports being over-active, over-productive and more disorganized until meds have been changed recently. He presents for ongoing assistance in stabilization of his mood. Plan: B12 100 mcg daily (level 251) Depakote ER 500 mg HS MVI 1 tab daily Glycopyrolate 0.5 mg bid trial -pt reporting excessive salivation 08/31/22 Increase Depakote ER to 1000 mg HS Lorazepam 1 mg bid Increase Olanzapine to 20 mg hs 09/03/22: Schedule couples meeting Address FMLA Continue B12 replacement (level 251) ESR, CRP, RPR, CAT [place] request 09/04/22 Patient has trouble staying asleep; ambivalent about trazodone so left as a p.r.n.. in past, on Ritalin, helped him sleep. He understands that he may need few more days of stabilization on current medications before this is restarted as it was likely part of what triggered a manic episode. 09/05/22 Wellbutrin 75 mg a.m. Trazodone trial to continue 09/06/22 Add Trazodone 50 mg hs prn to standing dosage. 09/07/22 Continue to work on sleep quality 09/08/2022: Stable and doing well. Will be working with primary team around discharge planning I spent minutes with the patient and/or on the patient floor today, greater than?50% of which was spent counseling/coordinating care. Reason for contiued inpatient stay Substantial Risk for: rapid decompensation
[2022-09-08 19:03] VITALS: BP 146/82; PULSE 72; RESP 16; TEMP 36.6
[2022-09-08 20:00] VITALS: BP 140/80
[2022-09-08] MEDS: OLANZapine 10 MG TABLET 20 MG PO (20:08)
[2022-09-08] MEDS: traZODone HCL 50 MG TABLET PO ×2 (20:08→21:08)
[2022-09-08] MEDS: Divalproex Sodium ER 250 MG TAB.ER.24H 1250 MG PO (20:08)
[2022-09-09 06:00] VITALS: BP 141/77; PULSE 78; RESP 16; TEMP 36.5; O2SAT 97
[2022-09-09] MEDS: Glycopyrrolate 1 MG TABLET 0.5 MG PO ×2 (08:21→20:19)
[2022-09-09] MEDS: Tamsulosin HCL 0.4 MG CAPSULE PO (08:22)
[2022-09-09] MEDS: Multivitamin TABLET 1 TAB PO (08:22)
[2022-09-09] MEDS: lisinopriL 40 MG TABLET PO (08:22)
[2022-09-09] MEDS: LORazepam 0.5 MG TABLET PO ×3 (08:22→20:19)
[2022-09-09] MEDS: Cyanocobalamin (Vitamin B-12) 100 MCG TABLET PO (08:22)
[2022-09-09] MEDS: cloNIDine HCL 0.1 MG TABLET PO ×2 (08:22→20:19)
[2022-09-09] MEDS: buPROPion HCL 75 MG TABLET PO (08:22)
[2022-09-09] MEDS: amLODIPine Besylate 5 MG TABLET PO (08:24)
--- NOTE | 2022-09-09 13:17 | HO.PSYCHPN ---
Subjective Subjective Date of Service: 09/09/22 Reason For Visit: Bipolar disorder,SI Interim History: Met with patient. Chart reviewed. Discussed with Nursing. Overall patient continues to report feeling positive unwell supported. Mood good. Sleep very good last night. Thankful for family and care he is receiving. Attending groups. No medication concerns and looking forward to discharge planning and working on same with team. Medication Compliance: Yes Side effects from medications: No Attending Groups: Yes Review of Systems Acute medical concerns: No Review of Systems Review of Systems Unremarkable Mental Status Exam Mental Status Exam Narrative: Pleasant. Engaged. Appropriately dressed. Organized. Euthymic. No SI. No HI. No agitation. No psychosis. Insight and judgment good Diagnostics Vital Signs (24Hr): Vital Signs - 24 hr 09/08/22 19:03 09/08/22 20:00 09/09/22 06:00 Temperature 97.9 F 97.7 F Pulse Rate 72 78 Respiratory Rate 16 16 Blood Pressure 146/82 H 140/80 H 141/77 H Pulse Oximetry 97 Oxygen Delivery Method Room Air BMI result Body Mass Index 25.7 Labs Results: 08/28/22 16:22 08/28/22 16:22 Imaging Radiology Impressions: ITS Impressions Head CT 08/28/22 16:39 IMPRESSION: Unremarkable CT scan of the head. Specifically evidence of acute territorial infarct or hemorrhage. Head CT 09/03/22 11:44 IMPRESSION: No acute findings. Medications Medications Current Medications Acetaminophen (Acetaminophen 325 Mg Tablet) 650 mg PO Q6H PRN PRN Reason: Headache/Pain Mild Scale (1-3) Al Hydroxide/Mg Hydroxide (Magnesium Hydrox/Alum Hydrox 30 Ml Oral.Susp) 30 ml PO Q6H PRN PRN Reason: Heartburn/Nausea Amlodipine Besylate (Amlodipine Besylate 5 Mg Tablet) 5 mg PO DAILY [facility]; Protocol Last Admin: 09/09/22 08:24 Dose: 5 mg Bupropion HCl (Bupropion Hcl 75 Mg Tablet) 75 mg PO DAILY [facility] Last Admin: 09/09/22 08:22 Dose: 75 mg Clonidine HCl (Clonidine Hcl 0.1 Mg Tablet) 0.1 mg PO BID [facility]; Protocol Last Admin: 09/09/22 08:22 Dose: 0.1 mg Cyanocobalamin (Cyanocobalamin (Vitamin B-12) 100 Mcg Tablet) 100 mcg PO DAILY [facility] Last Admin: 09/09/22 08:22 Dose: 100 mcg Divalproex Sodium (Divalproex Sodium Er 250 Mg Tab.Er.24h) 1,250 mg PO BEDTIME [facility] Last Admin: 09/08/22 20:08 Dose: 1,250 mg Glycopyrrolate (Glycopyrrolate 1 Mg Tablet) 0.5 mg PO BID [facility] Last Admin: 09/09/22 08:21 Dose: 0.5 mg Hydroxyzine HCl (Hydroxyzine Hcl 25 Mg Tablet) 25 mg PO Q6H PRN PRN Reason: Anxiety Last Admin: 09/06/22 20:25 Dose: 25 mg Hydroxyzine HCl (Hydroxyzine Hcl 50 Mg Tablet) 50 mg PO BEDTIME MRX1 PRN PRN Reason: insomnia Last Admin: 09/06/22 23:56 Dose: 50 mg Lisinopril (Lisinopril 40 Mg Tablet) 40 mg PO DAILY [facility]; Protocol Last Admin: 09/09/22 08:22 Dose: 40 mg Lorazepam (Lorazepam 1 Mg Tablet) 1 mg PO Q4H PRN PRN Reason: Anxiety Last Admin: 09/05/22 00:07 Dose: 1 mg Lorazepam (Lorazepam 0.5 Mg Tablet) 0.5 mg PO TID [facility] Last Admin: 09/09/22 08:22 Dose: 0.5 mg Magnesium Hydroxide (Milk Of Magnesia 30 Ml Oral.Susp) 30 ml PO DAILY PRN PRN Reason: Constipation Multivitamins/Vitamin C (Multivitamin Tablet) 1 tab PO DAILY [facility] Last Admin: 09/09/22 08:22 Dose: 1 tab Olanzapine (Olanzapine 10 Mg Tablet) 20 mg PO BEDTIME [facility] Last Admin: 09/08/22 20:08 Dose: 20 mg Tamsulosin HCl (Tamsulosin Hcl 0.4 Mg Capsule) 0.4 mg PO DAILY [facility] Last Admin: 09/09/22 08:22 Dose: 0.4 mg Trazodone HCl (Trazodone Hcl 50 Mg Tablet) 50 mg PO BEDTIME [facility] Last Admin: 09/08/22 20:08 Dose: 50 mg Trazodone HCl (Trazodone Hcl 50 Mg Tablet) 50 mg PO BEDTIME PRN PRN Reason: after scheduled dose prn insomnia Last Admin: 09/08/22 21:08 Dose: 50 mg Allergies Allergies Allergy/AdvReac Type Severity Reaction Status Date / Time No Known Allergies Allergy Verified 08/28/22 16:07 Assessment & Plan Assessment & Plan (1) Bipolar disorder: Status: Acute Code(s): F31.9 - Bipolar disorder, unspecified Assessment and Plan: trying hydroxyzine for sleep tonight ? cloudy thinking due to lorazepam or depakote trial 09/02 increased depkaote maybe have been a bit much for patient-went from 1000 to 1500mg, will dec to 1250mg today Plan 62 yo male, exacerbation of bipolar disorder with recent med changes from Ritalin, Lexapro, Effexor to Olanzapine. Pt reports having a psychotic decompensation January 2022 with [place] the airport[place] He left his , had an affair, and signed a year least in March 2022 while manic. He reports being over-active, over-productive and more disorganized until meds have been changed recently. He presents for ongoing assistance in stabilization of his mood. Plan: B12 100 mcg daily (level 251) Depakote ER 500 mg HS MVI 1 tab daily Glycopyrolate 0.5 mg bid trial -pt reporting excessive salivation 08/31/22 Increase Depakote ER to 1000 mg HS Lorazepam 1 mg bid Increase Olanzapine to 20 mg hs 09/03/22: Schedule couples meeting Address FMLA Continue B12 replacement (level 251) ESR, CRP, RPR, CAT [place] request 09/04/22 Patient has trouble staying asleep; ambivalent about trazodone so left as a p.r.n.. in past, on Ritalin, helped him sleep. He understands that he may need few more days of stabilization on current medications before this is restarted as it was likely part of what triggered a manic episode. 09/05/22 Wellbutrin 75 mg a.m. Trazodone trial to continue 09/06/22 Add Trazodone 50 mg hs prn to standing dosage. 09/07/22 Continue to work on sleep quality 09/09/2022: Stable and doing well. Will be working with primary team around discharge planning I spent minutes with the patient and/or on the patient floor today, greater than?50% of which was spent counseling/coordinating care. Reason for contiued inpatient stay Substantial Risk for: rapid decompensation
[2022-09-09] MEDS: traZODone HCL 50 MG TABLET PO ×2 (20:19→20:21)
[2022-09-09] MEDS: Divalproex Sodium ER 250 MG TAB.ER.24H 1250 MG PO (20:19)
[2022-09-09] MEDS: OLANZapine 10 MG TABLET 20 MG PO (20:19)
[2022-09-09 20:24] VITALS: BP 141/85; PULSE 80
[2022-09-10] MEDS: hydrOXYzine HCL 50 MG TABLET PO (00:25)
[2022-09-10 09:00] VITALS: BP 152/85; PULSE 74; TEMP 36.6
[2022-09-10] MEDS: Glycopyrrolate 1 MG TABLET 0.5 MG PO ×2 (09:00→20:32)
[2022-09-10] MEDS: Multivitamin TABLET 1 TAB PO (09:00)
[2022-09-10] MEDS: cloNIDine HCL 0.1 MG TABLET PO ×2 (09:00→20:33)
[2022-09-10] MEDS: lisinopriL 40 MG TABLET PO (09:00)
[2022-09-10] MEDS: buPROPion HCL 75 MG TABLET PO (09:00)
[2022-09-10] MEDS: LORazepam 0.5 MG TABLET PO ×3 (09:00→20:33)
[2022-09-10] MEDS: amLODIPine Besylate 5 MG TABLET PO (09:00)
[2022-09-10] MEDS: Cyanocobalamin (Vitamin B-12) 100 MCG TABLET PO (09:00)
[2022-09-10] MEDS: Tamsulosin HCL 0.4 MG CAPSULE PO (09:00)
--- NOTE | 2022-09-10 18:39 | P.PNPSI_ITS ---
Subjective Subjective Date of Service: 09/10/22 Reason For Visit: Bipolar disorder,SI Subjective Notes: Conditional Voluntary Healthcare Proxy: No Guardianship: No Medical Problems Affecting Mental Status: No Interim History: Reports insomnia. Discussed contributing factors-level of noise in milieu, anxiety, room-mate snoring. Review of medications-pt does not believe medication changes are needed. He finds current regime helpful and feels as time passes he is feeling improved. Identifies improved concentration- I can read . Discussion of discharge-discussed Saturday as a possibility, allowing 2 nights to eval sleep and need for med changes. Pt agrees-he will discuss with and ask to schedule a family meeting if needed prior to discharge. [employer] FMLA sent last week-tw and have not heard from them. Letter drafted to cease pt's lease-approved by pt and . Full med review for questions, discharge- both pt and agree. Extended family has agreed to allow pt to live with them, which is close to the family home. Medication Compliance: Yes Side effects from medications: No Attending Groups: Yes Review of Systems Acute medical concerns: No Medical Review of Systems: unchanged Mental Status Exam Mental Status Exam Patient Appearance: Fatigued Patient Orientation: Person, Place, Time and Situation Level of Consciousness: Alert Patient Behavior: Talkative and Good Eye Contact Mood Description: Anxious Affect Description: Anxious Patient Cognition Impaired: No Ability to Follow Directions: Good Speech Pattern: Spontaneous Speech Memory Description: Episodic Impaired Hallucinations: None Delusions: Not Present Thought Process: Rumination Thought Content: positive for Intact Depressive Symptoms: Increased Anxiety, Insomnia and Difficulty Sleeping Judgement: Fair Diagnostics Vital Signs (24Hr): Vital Signs - 24 hr 09/09/22 20:24 09/10/22 09:00 Temperature 98 F Pulse Rate 80 74 Blood Pressure 141/85 H 152/85 H BMI result Body Mass Index 25.7 Labs Results: 08/28/22 16:22 08/28/22 16:22 Imaging Radiology Impressions: ITS Impressions Head CT 08/28/22 16:39 IMPRESSION: Unremarkable CT scan of the head. Specifically evidence of acute territorial infarct or hemorrhage. Head CT 09/03/22 11:44 IMPRESSION: No acute findings. Medications Medications Current Medications Acetaminophen (Acetaminophen 325 Mg Tablet) 650 mg PO Q6H PRN PRN Reason: Headache/Pain Mild Scale (1-3) Al Hydroxide/Mg Hydroxide (Magnesium Hydrox/Alum Hydrox 30 Ml Oral.Susp) 30 ml PO Q6H PRN PRN Reason: Heartburn/Nausea Amlodipine Besylate (Amlodipine Besylate 5 Mg Tablet) 5 mg PO DAILY [facility]; Protocol Last Admin: 09/10/22 09:00 Dose: 5 mg Bupropion HCl (Bupropion Hcl 75 Mg Tablet) 75 mg PO DAILY [facility] Last Admin: 09/10/22 09:00 Dose: 75 mg Clonidine HCl (Clonidine Hcl 0.1 Mg Tablet) 0.1 mg PO BID [facility]; Protocol Last Admin: 09/10/22 09:00 Dose: 0.1 mg Cyanocobalamin (Cyanocobalamin (Vitamin B-12) 100 Mcg Tablet) 100 mcg PO DAILY [facility] Last Admin: 09/10/22 09:00 Dose: 100 mcg Divalproex Sodium (Divalproex Sodium Er 250 Mg Tab.Er.24h) 1,250 mg PO BEDTIME [facility] Last Admin: 09/09/22 20:19 Dose: 1,250 mg Glycopyrrolate (Glycopyrrolate 1 Mg Tablet) 0.5 mg PO BID [facility] Last Admin: 09/10/22 09:00 Dose: 0.5 mg Hydroxyzine HCl (Hydroxyzine Hcl 25 Mg Tablet) 25 mg PO Q6H PRN PRN Reason: Anxiety Last Admin: 09/06/22 20:25 Dose: 25 mg Hydroxyzine HCl (Hydroxyzine Hcl 50 Mg Tablet) 50 mg PO BEDTIME MRX1 PRN PRN Reason: insomnia Last Admin: 09/10/22 00:25 Dose: 50 mg Lisinopril (Lisinopril 40 Mg Tablet) 40 mg PO DAILY [facility]; Protocol Last Admin: 09/10/22 09:00 Dose: 40 mg Lorazepam (Lorazepam 1 Mg Tablet) 1 mg PO Q4H PRN PRN Reason: Anxiety Last Admin: 09/05/22 00:07 Dose: 1 mg Lorazepam (Lorazepam 0.5 Mg Tablet) 0.5 mg PO TID [facility] Last Admin: 09/10/22 15:53 Dose: 0.5 mg Magnesium Hydroxide (Milk Of Magnesia 30 Ml Oral.Susp) 30 ml PO DAILY PRN PRN Reason: Constipation Multivitamins/Vitamin C (Multivitamin Tablet) 1 tab PO DAILY [facility] Last Admin: 09/10/22 09:00 Dose: 1 tab Olanzapine (Olanzapine 10 Mg Tablet) 20 mg PO BEDTIME [facility] Last Admin: 09/09/22 20:19 Dose: 20 mg Tamsulosin HCl (Tamsulosin Hcl 0.4 Mg Capsule) 0.4 mg PO DAILY [facility] Last Admin: 09/10/22 09:00 Dose: 0.4 mg Trazodone HCl (Trazodone Hcl 50 Mg Tablet) 50 mg PO BEDTIME [facility] Last Admin: 09/09/22 20:19 Dose: 50 mg Trazodone HCl (Trazodone Hcl 50 Mg Tablet) 50 mg PO BEDTIME PRN PRN Reason: after scheduled dose prn insomnia Last Admin: 09/09/22 20:21 Dose: 50 mg Allergies Allergies Allergy/AdvReac Type Severity Reaction Status Date / Time No Known Allergies Allergy Verified 08/28/22 16:07 Assessment & Plan Assessment & Plan (1) Bipolar disorder: Status: Acute Code(s): F31.9 - Bipolar disorder, unspecified Assessment and Plan: trying hydroxyzine for sleep tonight ? cloudy thinking due to lorazepam or depakote trial 09/02 increased depkaote maybe have been a bit much for patient-went from 1000 to 1500mg, will dec to 1250mg today Plan 62 yo male, exacerbation of bipolar disorder with recent med changes from Ritalin, Lexapro, Effexor to Olanzapine. Pt reports having a psychotic decompensation [place] 2022 [place] He left his , had an affair, and signed a year least in March 2022 while manic. He reports being over-active, over-productive and more disorganized until meds have been changed recently. He presents for ongoing assistance in stabilization of his mood. Plan: B12 100 mcg daily (level 251) Depakote ER 500 mg HS MVI 1 tab daily Glycopyrolate 0.5 mg bid trial -pt reporting excessive salivation 08/31/22 Increase Depakote ER to 1000 mg HS Lorazepam 1 mg bid Increase Olanzapine to 20 mg hs 09/03/22: Schedule couples meeting Address FMLA Continue B12 replacement (level 251) ESR, CRP, RPR, CAT [place] request 09/04/22 Patient has trouble staying asleep; ambivalent about trazodone so left as a p.r.n.. in past, on Ritalin, helped him sleep. He understands that he may need few more days of stabilization on current medications before this is restarted as it was likely part of what triggered a manic episode. 09/05/22 Wellbutrin 75 mg a.m. Trazodone trial to continue 09/06/22 Add Trazodone 50 mg hs prn to standing dosage. 09/07/22 Continue to work on sleep quality 09/09/2022: Stable and doing well. Will be working with primary team around discharge planning 09/10/22 Monitor sleep for possible med changes Labs 09/12/22 prior to discharge Discharge 09/12 to extended family home. Pt, family in agreement I spent minutes with the patient and/or on the patient floor today, greater than?50% of which was spent counseling/coordinating care. Patient educated on: medication risk/benefits and therapeutic strategies Informed Consent: understands Reason for contiued inpatient stay Substantial Risk for: inability to function, rapid decompensation and med/psych decompensation Time Spent With Patient Time: Total time managing care of this patient today __30__ minutes.
[2022-09-10] MEDS: Divalproex Sodium ER 250 MG TAB.ER.24H 1250 MG PO (20:33)
[2022-09-10] MEDS: OLANZapine 10 MG TABLET 20 MG PO (20:33)
[2022-09-10] MEDS: traZODone HCL 50 MG TABLET PO ×2 (20:33)
[2022-09-10 20:35] VITALS: BP 135/79; PULSE 72
[2022-09-11] MEDS: hydrOXYzine HCL 50 MG TABLET PO ×2 (03:29→22:14)
[2022-09-11 09:00] VITALS: BP 140/91; PULSE 80; TEMP 36.3
[2022-09-11] MEDS: buPROPion HCL 75 MG TABLET PO (09:06)
[2022-09-11] MEDS: Multivitamin TABLET 1 TAB PO (09:06)
[2022-09-11] MEDS: Tamsulosin HCL 0.4 MG CAPSULE PO (09:06)
[2022-09-11] MEDS: LORazepam 0.5 MG TABLET PO ×3 (09:06→20:43)
[2022-09-11] MEDS: cloNIDine HCL 0.1 MG TABLET PO ×2 (09:07→20:43)
[2022-09-11] MEDS: Cyanocobalamin (Vitamin B-12) 100 MCG TABLET PO (09:07)
[2022-09-11] MEDS: amLODIPine Besylate 5 MG TABLET PO (09:07)
[2022-09-11] MEDS: Glycopyrrolate 1 MG TABLET 0.5 MG PO ×2 (09:07→20:43)
[2022-09-11] MEDS: lisinopriL 40 MG TABLET PO (09:07)
[2022-09-11 18:00] VITALS: BP 133/80; PULSE 73; RESP 16; TEMP 37.2; O2SAT 95
--- NOTE | 2022-09-11 18:01 | P.PNPSI_ITS ---
Subjective Subjective Date of Service: 09/11/22 Reason For Visit: Bipolar disorder,SI Subjective Notes: Conditional Voluntary Healthcare Proxy: No Guardianship: No Medical Problems Affecting Mental Status: No Interim History: Reports overall anxiety is improved- 12/07. Afternoon/Evening anxiety is good, managable . Reports flank pain-will obtain urine culture-pt unsure-has lower back sx art hritis, however, this discomfort is higher. No concerns about discharge planned for tomorrow. Reports sleep is still intermittent-approx 3 hour intervals-9:30-12am- 1-4am Will increase Trazodone to 100 mg hs this evening. Medication Compliance: Yes Side effects from medications: No Attending Groups: Yes Review of Systems Acute medical concerns: No Medical Review of Systems: unchanged Mental Status Exam Mental Status Exam Patient Appearance: Fatigued Patient Orientation: Person, Place, Time and Situation Level of Consciousness: Alert Patient Behavior: Talkative and Good Eye Contact Mood Description: Anxious Affect Description: Anxious Patient Cognition Impaired: No Ability to Follow Directions: Good Speech Pattern: Spontaneous Speech Memory Description: Episodic Impaired Hallucinations: None Delusions: Not Present Thought Process: Rumination Thought Content: positive for Intact Depressive Symptoms: Increased Anxiety, Insomnia and Difficulty Sleeping Judgement: Fair Diagnostics Vital Signs (24Hr): Vital Signs - 24 hr 09/10/22 20:35 09/11/22 09:00 Temperature 97.4 F Pulse Rate 72 80 Blood Pressure 135/79 140/91 H BMI result Body Mass Index 25.7 Labs Results: 08/28/22 16:22 08/28/22 16:22 Imaging Radiology Impressions: ITS Impressions Head CT 08/28/22 16:39 IMPRESSION: Unremarkable CT scan of the head. Specifically evidence of acute territorial infarct or hemorrhage. Head CT 09/03/22 11:44 IMPRESSION: No acute findings. Medications Medications Current Medications Acetaminophen (Acetaminophen 325 Mg Tablet) 650 mg PO Q6H PRN PRN Reason: Headache/Pain Mild Scale (1-3) Al Hydroxide/Mg Hydroxide (Magnesium Hydrox/Alum Hydrox 30 Ml Oral.Susp) 30 ml PO Q6H PRN PRN Reason: Heartburn/Nausea Amlodipine Besylate (Amlodipine Besylate 5 Mg Tablet) 5 mg PO DAILY [facility]; Protocol Last Admin: 09/11/22 09:07 Dose: 5 mg Bupropion HCl (Bupropion Hcl 75 Mg Tablet) 75 mg PO DAILY [facility] Last Admin: 09/11/22 09:06 Dose: 75 mg Clonidine HCl (Clonidine Hcl 0.1 Mg Tablet) 0.1 mg PO BID [facility]; Protocol Last Admin: 09/11/22 09:07 Dose: 0.1 mg Cyanocobalamin (Cyanocobalamin (Vitamin B-12) 100 Mcg Tablet) 100 mcg PO DAILY [facility] Last Admin: 09/11/22 09:07 Dose: 100 mcg Divalproex Sodium (Divalproex Sodium Er 250 Mg Tab.Er.24h) 1,250 mg PO BEDTIME RUCHI Last Admin: 09/10/22 20:33 Dose: 1,250 mg Glycopyrrolate (Glycopyrrolate 1 Mg Tablet) 0.5 mg PO BID [facility] Last Admin: 09/11/22 09:07 Dose: 0.5 mg Hydroxyzine HCl (Hydroxyzine Hcl 25 Mg Tablet) 25 mg PO Q6H PRN PRN Reason: Anxiety Last Admin: 09/06/22 20:25 Dose: 25 mg Hydroxyzine HCl (Hydroxyzine Hcl 50 Mg Tablet) 50 mg PO BEDTIME MRX1 PRN PRN Reason: insomnia Last Admin: 09/11/22 03:29 Dose: 50 mg Lisinopril (Lisinopril 40 Mg Tablet) 40 mg PO DAILY [facility]; Protocol Last Admin: 09/11/22 09:07 Dose: 40 mg Lorazepam (Lorazepam 1 Mg Tablet) 1 mg PO Q4H PRN PRN Reason: Anxiety Last Admin: 09/05/22 00:07 Dose: 1 mg Lorazepam (Lorazepam 0.5 Mg Tablet) 0.5 mg PO TID [facility] Last Admin: 09/11/22 14:23 Dose: 0.5 mg Magnesium Hydroxide (Milk Of Magnesia 30 Ml Oral.Susp) 30 ml PO DAILY PRN PRN Reason: Constipation Multivitamins/Vitamin C (Multivitamin Tablet) 1 tab PO DAILY [facility] Last Admin: 09/11/22 09:06 Dose: 1 tab Olanzapine (Olanzapine 10 Mg Tablet) 20 mg PO BEDTIME RUCHI Last Admin: 09/10/22 20:33 Dose: 20 mg Tamsulosin HCl (Tamsulosin Hcl 0.4 Mg Capsule) 0.4 mg PO DAILY [facility] Last Admin: 09/11/22 09:06 Dose: 0.4 mg Trazodone HCl (Trazodone Hcl 50 Mg Tablet) 50 mg PO BEDTIME PRN PRN Reason: after scheduled dose prn insomnia Last Admin: 09/10/22 20:33 Dose: 50 mg Trazodone HCl (Trazodone Hcl 100 Mg Tablet) 100 mg PO BEDTIME RUCHI Allergies Allergies Allergy/AdvReac Type Severity Reaction Status Date / Time No Known Allergies Allergy Verified 08/28/22 16:07 Assessment & Plan Assessment & Plan (1) Bipolar disorder: Status: Acute Code(s): F31.9 - Bipolar disorder, unspecified Assessment and Plan: trying hydroxyzine for sleep tonight ? cloudy thinking due to lorazepam or depakote trial 09/02 increased depkaote maybe have been a bit much for patient-went from 1000 to 1500mg, will dec to 1250mg today Plan 62 yo male, exacerbation of bipolar disorder with recent med changes from Ritalin, Lexapro, Effexor to Olanzapine. Pt reports having a psychotic decompensation [place] 2022 [place] He left his , had an affair, and signed a year least in March 2022 while manic. He reports being over-active, over-productive and more disorganized until meds have been changed recently. He presents for ongoing assistance in stabilization of his mood. Plan: B12 100 mcg daily (level 251) Depakote ER 500 mg HS MVI 1 tab daily Glycopyrolate 0.5 mg bid trial -pt reporting excessive salivation 08/31/22 Increase Depakote ER to 1000 mg HS Lorazepam 1 mg bid Increase Olanzapine to 20 mg hs 09/03/22: Schedule couples meeting Address FMLA Continue B12 replacement (level 251) ESR, CRP, RPR, CAT [employer] request 09/04/22 Patient has trouble staying asleep; ambivalent about trazodone so left as a p.r.n.. in past, on Ritalin, helped him sleep. He understands that he may need few more days of stabilization on current medications before this is restarted as it was likely part of what triggered a manic episode. 09/05/22 Wellbutrin 75 mg a.m. Trazodone trial to continue 09/06/22 Add Trazodone 50 mg hs prn to standing dosage. 09/07/22 Continue to work on sleep quality 09/09/2022: Stable and doing well. Will be working with primary team around discharge planning 09/10/22 Monitor sleep for possible med changes Labs 09/12/22 prior to discharge Discharge 09/12 to extended family home. Pt, family in agreement 09/11/22 Discharge 09/12/22. Increase Trazodone to 100 mg HS I spent minutes with the patient and/or on the patient floor today, greater than?50% of which was spent counseling/coordinating care. Patient educated on: medication risk/benefits and therapeutic strategies Informed Consent: understands and further education needed Reason for contiued inpatient stay Substantial Risk for: inability to function and rapid decompensation Time Spent With Patient Time: Total time managing care of this patient today ___25_ minutes.
[2022-09-11] MEDS: OLANZapine 10 MG TABLET 20 MG PO (20:43)
[2022-09-11] MEDS: Divalproex Sodium ER 250 MG TAB.ER.24H 1250 MG PO (20:43)
[2022-09-11] MEDS: traZODone HCL 100 MG TABLET PO (20:44)
[2022-09-12 07:48] VITALS: BP 135/77; PULSE 75; RESP 16; TEMP 36.7; O2SAT 99
[2022-09-12] MEDS: Glycopyrrolate 1 MG TABLET 0.5 MG PO (08:30)
[2022-09-12] MEDS: Tamsulosin HCL 0.4 MG CAPSULE PO (08:31)
[2022-09-12] MEDS: amLODIPine Besylate 5 MG TABLET PO (08:31)
[2022-09-12] MEDS: lisinopriL 40 MG TABLET PO (08:31)
[2022-09-12] MEDS: cloNIDine HCL 0.1 MG TABLET PO (08:31)
[2022-09-12] MEDS: Multivitamin TABLET 1 TAB PO (08:31)
[2022-09-12] MEDS: LORazepam 0.5 MG TABLET PO ×2 (08:31→14:10)
[2022-09-12] MEDS: Cyanocobalamin (Vitamin B-12) 100 MCG TABLET PO (08:32)
[2022-09-12] MEDS: buPROPion HCL 75 MG TABLET PO (08:32)
[2022-09-12 09:09] LABS: MANUAL DIFF FLAG NO
[2022-09-12 09:30] LABS: Hematocrit 40.6 % (42.0-52.0); Mean Corpuscular Hemoglobin 30.2 pg (27.0-33.0); Mean Corpuscular Volume 94.4 fL (80.0-98.0); Platelet Count 150 X10*3/uL (160-400); Red Cell Distribution Width 13.2 % (11.0-16.0); White Blood Count 6.6 X10*3/uL (4.8-10.8)
[2022-09-12 09:31] LABS: Basophils Percent Auto 0.6 % (0-2); Eosinophils Absolute Auto 0.2 X10*3/uL (0.0-0.4); Eosinophils Percent Auto 2.9 % (0-4); Imm Gran Abs Auto 0.05 X10*3/uL (0.00-0.03); Imm Gran Pct Auto 0.8 % (0.0-0.4); Lymphocytes Absolute Auto 1.4 X10*3/uL (1.2-4.9); Lymphocytes Percent Auto 21.7 % (20-40); Mean Platelet Volume 11.9 fL (9.4-12.4); Monocytes Absolute Auto 0.5 X10*3/uL (0.1-1.2); Monocytes Percent Auto 8.2 % (2-11); Neutrophils Absolute Auto 4.4 x10*3/uL (2.0-8.3); Neutrophils Percent Auto 65.8 % (45-73)
[2022-09-12 10:07] LABS: Valproate 57.8 mcg/mL (50.0-100.0)
[2022-09-12 10:13] LABS: Alanine Aminotransferase 14 U/L (0-40); Alkaline Phosphatase 42 U/L (39-117); Anion Gap 13 (12-20); Aspartate Amino Transferase 12 U/L (5-37); Bilirubin Total 0.3 mg/dL (0.0-1.0); Blood Urea Nitrogen 15 mg/dL (9-16); Calcium 9.2 mg/dL (8.4-10.2); Carbon Dioxide 29 mmol/L (22-29); Chloride 105 mmol/L (96-108); Creatinine Clr Calc Pharmacy 83.4; Estimated Glomerular Filt Rate > 60; Glucose Random 92 mg/dL (60-115); Sodium 143 mmol/L (135-145); Total Protein 6.1 g/dL (6.5-8.0)
--- NOTE | 2022-09-12 17:08 | P.DS_ITS ---
DS: Providers Provider Date of Service: 09/12/22 Date of admission: 08/29/22 17:06 Date of discharge: 09/12/22 Primary care physician: Pablo Jasso MD Admitting clinician: Katie Liu Attending physician on admission: Woo Salcido Attending physician on discharge: Woo Salcido Discharging clinician: Katie Liu DS: Diagnosis Discharge Diagnosis (1) Bipolar disorder: Status: Acute DS: Medications Discharge Medications Home Medications: Previous Rx's Medication Instructions Recorded amlodipine 5 mg tablet 1 tab PO DAILY #30 tabs 09/12/22 bupropion HCl 75 mg tablet 75 mg PO DAILY #30 tabs 09/12/22 clonidine HCl 0.1 mg tablet 0.1 mg PO BID #180 tabs 09/12/22 clonidine HCl 0.1 mg tablet 0.1 mg PO BID #60 tabs 09/12/22 cyanocobalamin (vitamin B-12) 100 100 mcg PO DAILY #30 tabs 09/12/22 mcg tablet (Vitamin B-12) divalproex 250 mg tablet,extended 250 mg PO BEDTIME #30 tabs 09/12/22 release 24 hr (Depakote ER) divalproex 500 mg tablet,extended 1,000 mg PO DAILY #60 tabs 09/12/22 release 24 hr (Depakote ER) glycopyrrolate 1 mg tablet 0.5 mg PO BID #60 tabs 09/12/22 hydroxyzine HCl 50 mg tablet 50 mg PO BEDTIME MRX1 PRN insomnia 09/12/22 #60 tabs lisinopril 40 mg tablet 1 tab PO DAILY #30 tabs 09/12/22 lorazepam 0.5 mg tablet 0.5 mg PO TID #90 tabs 09/12/22 multivitamin (Daily-Nhi tablet) 1 tab PO DAILY #30 tabs 09/12/22 olanzapine 10 mg tablet 20 mg PO BEDTIME #30 tabs 09/12/22 olanzapine 20 mg tablet 20 mg PO BEDTIME #90 tabs 09/12/22 tamsulosin 0.4 mg capsule 1 cap PO DAILY #30 caps 09/12/22 trazodone 100 mg tablet 100 mg PO BEDTIME #30 tabs 09/12/22 Mental Status Exam Mental Status Exam Patient Appearance: Fatigued Patient Orientation: Person, Place, Time and Situation Level of Consciousness: Alert Patient Behavior: Talkative and Good Eye Contact Mood Description: Anxious Affect Description: Anxious Patient Cognition Impaired: No Ability to Follow Directions: Good Speech Pattern: Spontaneous Speech Memory Description: Episodic Impaired Hallucinations: None Delusions: Not Present Thought Process: Rumination Thought Content: positive for Intact Depressive Symptoms: Increased Anxiety, Insomnia and Difficulty Sleeping Judgement: Fair Data Data Completed and Pending Completed studies during hospitalization [Text1]: 09/12/22 09/12/22 09/12/22 08:27 08:27 08:27 WBC 6.6 RBC 4.30 L Hgb 13.0 L Hct 40.6 L MCV 94.4 MCH 30.2 MCHC 32.0 RDW 13.2 Plt Count 150 L D MPV 11.9 Immature Gran % (Auto) 0.8 H Neut % (Auto) 65.8 Lymph % (Auto) 21.7 [place] % (Auto) 8.2 Eos % (Auto) 2.9 Baso % (Auto) 0.6 Lymph # (Auto) 1.4 [place] # (Auto) 0.5 Eos # (Auto) 0.2 Baso # (Auto) 0.0 Abs Immat Gran (auto) 0.05 H Absolute Neuts (auto) 4.4 Absolute Nucleated RBC 0.000 Nucleated RBC % (auto) 0.0 Sodium 143 Potassium 4.0 Chloride 105 Carbon Dioxide 29 Anion Gap 13 BUN 15 Creatinine 1.04 Estim Creat Clear Calc 83.4 Estimated GFR > 60 Random Glucose 92 Calcium 9.2 Total Bilirubin 0.3 AST 12 ALT 14 Alkaline Phosphatase 42 Total Protein 6.1 L Albumin 4.0 Valproic Acid 57.8 09/11/22 19:18 Urine clean catch - Clean Catch Midstream Urine Culture - Preliminary No growth to date. Imaging Diagnostic Imaging Impressions Head CT 08/28/22 16:39 IMPRESSION: Unremarkable CT scan of the head. Specifically evidence of acute territorial infarct or hemorrhage. Head CT 09/03/22 11:44 IMPRESSION: No acute findings. DS: Summary Hospital Course Hospital Course: Admission to adult psychiatry for exacerbation of symptoms of bipolar disorder. Pt, on admission was depressed and anxious. Sheryl has been a symptom since approximately January 2022 with resulting behaviors, actions, consequences which we began to regulate. Depakote, Olanzapine, Clonidine, Lorazepam, Trazodone were initiated. Stimulants were not re-started as pt and family believe they fueled sheryl. Wellbutrin trial was initiated to address ADHD issues. Pt will attend partial hospital program and out patient therapy and psychopharmacology. Pt and family were provided education on alternative medications once stability was maintained for a period of time. Time spent discussing smoking cessation with patient: 3 to 10 minutes Status at Discharge Functional status at discharge: independent ambulation Overall status at discharge: patient is progressing back to baseline Time Spent with Patient Time attestation: Total time managing care of this patient today ____ minutes. 40 Time spent: Greater than 30 minutes Discharge Plan Discharge Anticipated Discharge Date/Time: 09/12/22 14:58 Patient Disposition: Home, Self-Care Discharge Diagnosis: Bipolar Disorder Referrals: Jermaine Dixon [Other] - 09/19/22 2:00 pm (Initial Diagnostic Evaluation for Therapy Appointment is in person at [facility] in [place], [place].) Deena Hernandez [Other] - 10/11/22 9:45 am (Initial Psychiatric evaluation for medication management Appointment is by tele-health.Please check your email for a link to the appointment.) Deena Hernandez [Other] - 11/12/22 10:00 am (Medication Management Appointment. Appointment is by tele-health.Please check your email for a link to the appointment.) Partial Hospitalization Program (PHP) [facility] [Other] - 09/20/22 8:00 am (In person Intake at [facility] Program ) Pablo Jasso MD [Primary Care Provider] - 09/20/22 10:40 am (IN OFFICE) Discharge Medications: New multivitamin [Daily-Nhi] Tablet 1 tab PO DAILY Qty: 30 0RF glycopyrrolate 1 mg Tablet 0.5 mg PO BID Qty: 60 0RF cyanocobalamin (vitamin B-12) [Vitamin B-12] 100 mcg Tablet 100 mcg PO DAILY Qty: 30 0RF hydroxyzine HCl 50 mg Tablet 50 mg PO BEDTIME MRX1 PRN (Reason: insomnia) Qty: 60 0RF lorazepam 0.5 mg Tablet 0.5 mg PO TID Qty: 90 0RF trazodone 100 mg Tablet 100 mg PO BEDTIME Qty: 30 0RF bupropion HCl 75 mg Tablet 75 mg PO DAILY Qty: 30 0RF olanzapine 20 mg tablet 20 mg PO BEDTIME Qty: 90 0RF Rx Instructions: Insurance requirement 90 day clonidine HCl 0.1 mg tablet 0.1 mg PO BID Qty: 180 0RF Rx Instructions: 90 day insurance requirement Continued amlodipine 5 mg tablet 1 tab PO DAILY Qty: 30 0RF tamsulosin 0.4 mg capsule 1 cap PO DAILY Qty: 30 0RF lisinopril 40 mg tablet 1 tab PO DAILY Qty: 30 0RF Discontinued clonidine HCl 0.1 mg tablet 1 tab PO BID PRN (Reason: insomnia) olanzapine 15 mg tablet 1 tab PO BEDTIME Discharge Orders: Discharge Order (Routine); Ordered 09/12/22 Ordered By: Katie Liu Diet: Advance to usual diet Activity on Discharge: As tolerated Stand Alone Forms: Patient Portal Discharge page, Community Support Care Plan Goals: Maintain mood and safe behaviors Take medications as directed Practice coping skills Connect with out patient providers for ongoing treatment Health Concerns: Stable mood and behaviors Plan of Treatment: Follow up with out patient providers Take medications as directed Call and/or return as needed Assessment: Pt interviewed prior to discharge and found to be fully oriented and without any SI/HI. Pt has insight and demonstrates good judgment in terms of wanting to pursue treatment. Pt is not in imminent risk of harm to self or others and has a safety plan that includes presenting to the closest ER or calling 911 if feeling unsafe. Pt has been observed closely by nursing staff throughout admission. Pt has not engaged in any behaviors that suggest dangerousness to self or others and has demonstrated appropriate behaviors and impulse control. Discharge Date/Time: 09/12/22 14:15
== END 2022-09-12 14:15 | disposition home or self-care (01) | DRG 753 ==
LOC: HO.ED 23:08 → HO.PM5 08-29 17:24
PROVIDERS: Nurse Practitioner Family; Psychiatry & Neurology Psychiatry; Admitting Provider Psychiatry & Neurology Psychiatry; Emergency Provider Emergency Medicine; PCP Internal Medicine; Visit Provider Clinical Nurse Specialist Psychiatric/Mental Health, Adult
DX: F31.9 Bipolar disorder, unspecified (principal); R45.851 Suicidal ideations; Z20.822 Contact with and (suspected) exposure to COVID-19; Z79.899 Other long term (current) drug therapy
CPT/HCPCS: 36415; 70450; 80053; 80061; 80164; 80307; 82607; 82746; 83036; 83735; 84439; 84443; 84484; 85025; 85379; 85652; 86140; 86780; 87086; 87502; 87635; 93005; 99285

== ENCOUNTER 2022-09-28 08:01 | Outpatient (REF) | payer BC, SELFPAY ==
[2022-09-28 14:20] LABS: Valproate 44.2 mcg/mL (50.0-100.0)
== END 2022-09-28 08:02 | disposition home or self-care (01) ==
LOC: HO.LAB 08:01
PROVIDERS: PCP Internal Medicine; Visit Provider Nurse Practitioner Psychiatric/Mental Health
DX: F31.9 Bipolar disorder, unspecified (principal); Z79.899 Other long term (current) drug therapy
CPT/HCPCS: 36415; 80164

== ENCOUNTER 2022-10-10 12:30 | Outpatient (RCR) | payer BC, SELFPAY ==
--- NOTE | 2022-09-21 11:24 | HO.PS.ADMBH ---
[facility] Date of Service: 09/21/22 Chief Complaint: bipolar Sources of Information: patient interviewed, chart reviewed and crisis/core team assessment reviewed [facility] Medical Problems Affecting Mental Status: No Narrative: Mr. Hernandez is a 62 year-old, , male, referred to [facility] as a step down from . He was recently hospitalized due to increased symptoms of anxiety, depression, and exacerbation of anxiety sx after medication changes. He has history of ADD and depression, and explains that after his ritalin was increased in early 2021, he began to experience symptoms, which has led to a new diagnosis of bipolar disorder. He experienced a psychotic decompensation in January 2022, during which time he had made several impulsive major life decisions, including leaving his and asking for a divorce. They are currently working on reconciliation, and he is residing with his brother. He was hospitalized on from 08/30/22 - 09/12/22. Prior to hospitalization he had also completed a 3 week [facility] program through [facility]. Tests completed at [facility] show unremarkable CT scan of head, ECG with normal sinus rhythm. At this time, he continues with some anhedonia, feeling hopeless/helpless at times, decreased energy, anxiety, fatigue, and poor concentration. He denies SI/HI, AH/VH. Reports sleep has improved, but continues with fatigue. He received several medication changes while inpatient, and verall he feels his medication regimen is working. He is hoping to work on developing new, healthy coping skills while in [facility]. Past Psychiatric History: IP: 08/2022 OP: [facility] therapy intake completed. prescribing appt With Dr. Deena Hernandez on 10/11/22. Trials: Ritalin, Lexapro, Effexor Medical Evaluation Reviewed: Yes [facility] Medical History (Updated 09/24/22 @ 16:38 by Erendira Brewer) Anxiety Bipolar disorder Hypertension Low vitamin B12 level Surgical History History of appendectomy Family History: Brother of alcoholism/oral cancer d/t smoking Father alcoholic, maternal grandfather alcoholic Social History: Born in [place]. 1 brother, 1 sister, age 69 Parents have mom in 1978 of pancreatic cancer, dad in 2000 of lung cancer 40 years, on his 40th anniversary. Currently working on reconcilliation. 2 children, 2 grandchildren daughter and her and grandchildren live with pt's son and partner live nearby all the children are doing well- they are my basil Employed full-time, currently out on medical leave. Substance History: chronic almost daily cannabis use since age 15, last use 06/2022. Trauma History: This episode has been traumatic Meds/Allergies Meds Home Medications Medication Instructions Recorded Confirmed Type divalproex 250 mg tablet,extended 250 mg PO DAILY 09/21/22 09/21/22 History release 24 hr (Depakote ER) divalproex 500 mg tablet,extended 1,000 mg PO BEDTIME 09/21/22 09/21/22 History release 24 hr (Depakote ER) Allergies Allergies Allergy/AdvReac Type Severity Reaction Status Date / Time No Known Allergies Allergy Verified 08/28/22 16:07 Mental Status Exam Mental Status Exam Narrative: Well developed, well nourished male, in NAD. Appears stated age. Dressed appropriately. Normal gait, posture. No tics, tremors, no abnormal movements. No perceptual disturbances. Patient Appearance: Fatigued and Appropriate Patient Orientation: Person, Place, Time and Situation Level of Consciousness: Appropriate and Alert Patient Behavior: Appropriate, Cooperative and Good Eye Contact Mood Description: Anxious Affect Description: Anxious Patient Cognition Impaired: No Ability to Follow Directions: Good Speech Pattern: Appropriate and Spontaneous Speech Memory Description: Episodic Impaired Hallucinations: None Delusions: Not Present Thought Process: Intact Thought Content: positive for Intact Depressive Symptoms: Increased Anxiety, Difficulty Sleeping, Loss of Int. in Activity, Hopelessness (at times), Increased Fatigue and Difficulty Concentrating Judgement: Fair Assessment & Plan Assessment & Plan (1) Bipolar disorder: Status: Acute Code(s): F31.9 - Bipolar disorder, unspecified Assessment and Plan: Patient is a 62 yo male referred to [facility] as a step down from on [facility], where he was treated for a manic episode beginning in January 2022 with several subsequent medication changes and resulting lability, racing of thoughts, inability to sleep and depressed mood. He currently has anhedonia, fatigue, hopelessness/helplessness at times, and poor concentration. He denies any SI/HI, AH/VH, and reports that he is safe. He is looking forward to group participation, as he wishes to learn new coping skills to better manage his newly diagnosed bipolar disorder. He is sleeping 8 to 10 hours per night currently, and feels his mood has stabilized as compared to when he present for inpatient. He would like to remain on current medication regimen, as it is new, and appears to be helping. He does continue with fatigue during the day, and is asking to switch the dosing schedule of depakote. (2) Cannabis use disorder: Status: Acute Code(s): F12.90 - Cannabis use, unspecified, uncomplicated Assessment and Plan: Reports no use since 06/2022. Does not report post acute withdrawal symptoms or cravings at this time. Plan 1. Continue with current [facility] plan of care. 2. Continue with medication regimen, except for change of depakote to 250mg in am, and 1,000mg at bedtime, so as to help with fatigue during day. 3. Follow-up as per protocol. Patient educated on: diagnosis, medication risk/benefits and therapeutic strategies Informed Consent: understands Reason for continued partial hosp. stay Substantial Risk for: inability to function and rapid decompensation Certification I certify that partial hospital treatment is medically necessary due to the symptoms and problems resulting from the patient's mental illness and the failure to treat the patient at the partial hospital level of care would likely result in the patient requiring inpatient psychiatric care which could not be prevented at a less intensive level of care. Time Spent With Patient Time: Total time managing care of this patient today ___60_ minutes.
[2022-09-21 12:20] VITALS: BP 140/80; PULSE 96; TEMP 37.3
[2022-09-21 12:26] VITALS: BMI 25.8
--- NOTE | 2022-09-21 14:48 | PC.ADMIT ---
Patient was referred to [facility] inpatient behavioral health unit where he was admitted for mood instability. This was the patient's first inpatient admission. He reports he was previously dx with depression and ADHD however had a manic episode in February and was diagnosied with Bipolar I disorder. During the manic episode in February he decided to move out of his house and left his . He stated he regrets moving out of the house however at the time he stated he was, grandiose and no one could tell him anything as he was right and everyone else was wrong at the time. He has been since February and he is hopeful things can work out with his whom he states is very supportive now. Stated he is unable to move back in the house with his at this time as his daughter moved in with her children when he moved out and there is no room for him at this time. Patient is taking a leave of absence from his job at [employer] where he has worked for the past 23 years. Prior to hospitalization patient reports increased depression with passive SI and increased anxiety. This has affected his ability to drive. Patient is alert and oriented x4. Calm and cooperative. Presented with depressed mood and anxious affect. Denied SI. Patient has a copy of his safety plan if needed. Medications reconciled with patient and [facility] inpatient d/c records. Patient reports he has been taking his medications as prescribed.
[2022-09-21 15:54] LABS: Amphetamine Screen Urine Not Detected (Not Detect); Barbiturates, Urine Not Detected (Not Detect); Benzodiazepines Screen Urine Not Detected (Not Detect); Cannabinoid Screen Urine Not Detected (Not Detect); Cocaine Screen Urine Not Detected (Not Detect); Fentanyl, urine Not Detected (Not Detect); Opiate Screen Urine Not Detected (Not Detect); Phencyclidine Screen Urine Not Detected (Not Detect)
--- NOTE | 2022-09-27 14:24 | HO.PHPIOP ---
Case opened in tx team
--- NOTE | 2022-09-27 19:52 | HO.PHPPROGNO ---
Subjective Subjective Date of Service: 09/27/22 Reason For Visit: bipolar Medical Problems Affecting Mental Status: No Interim History: Still fatigued, poor sleep, low mood. Says too fatigued to drive. Recently had cold/flu-like sx. Anxiety meds working well. No panic attacks. No SI/HI, feels safe. Medication Compliance: Yes Side effects from medications: No Attending Groups: Yes Review of Systems Acute medical concerns: No Review of Systems Review of Systems fatigued Yes all other systems are reviewed and are negative Constitutional: Reports fatigue Endocrine: Reports fatigue Mental Status Exam Mental Status Exam Narrative: NAD Patient Appearance: Well Grooomed Patient Orientation: Person, Place, Time and Situation Level of Consciousness: Appropriate and Alert Patient Behavior: Appropriate, Cooperative and Good Eye Contact Mood Description: Depressed Affect Description: Appropriate Patient Cognition Impaired: No Ability to Follow Directions: Excellent Speech Pattern: Appropriate and Spontaneous Speech Memory Description: Episodic Impaired Hallucinations: None Delusions: Not Present Thought Process: Intact Thought Content: positive for Intact Depressive Symptoms: Difficulty Sleeping, Loss of Int. in Activity, Increased Fatigue and Difficulty Concentrating Judgement: Fair Diagnostics Vital Signs (24Hr): BMI result Body Mass Index 25.8 Assessment & Plan Assessment & Plan (1) Bipolar disorder: Status: Acute Code(s): F31.9 - Bipolar disorder, unspecified Assessment and Plan: Still fatigued, poor sleep, low mood. Says too fatigued to drive. Recently had cold/flu-like sx, believes this could be cause of some of his fatigue. Anxiety meds working well, and has had no panic attacks within past week. Finding groups helpful. No SI/HI, no safety concerns. We discussed current medication regimen, possibility of increasing bupropion to help with fatigue. Concern is to prevent activation of hypomanic / manic symptoms. Will obtain valproic acid level. Patient has also recently stopped heavy marijuana use, which could be contributing to current sx. (2) Anxiety: Status: Inactive Code(s): F41.9 - Anxiety disorder, unspecified Plan 1. Continue with current plan of care. 2. Valproic acid level tomorrow am. Patient educated on: diagnosis, medication risk/benefits and therapeutic strategies Informed Consent: understands Reason for contiued partial hosp. stay Substantial Risk for: inability to function Certification I certify that partial hospital treatment is medically necessary due to the symptoms and problems resulting from the patient's mental illness and the failure to treat the patient at the partial hospital level of care would likely result in the patient requiring inpatient psychiatric care which could not be prevented at a less intensive level of care. Total time managing care of this patient today ___20_ minutes. Discharge Plan Discharge Attending provider: Parminder Knight Medications: No Action divalproex [Depakote ER] 500 mg tablet extended release 24 hr 1,000 mg PO BEDTIME Label Comments: Erendira changed to HS d/t daytime sedation. divalproex [Depakote ER] 250 mg tablet extended release 24 hr 250 mg PO DAILY Label Comments: Erendira changed to the am. multivitamin [Daily-Nhi] Tablet 1 tab PO DAILY Qty: 30 0RF glycopyrrolate 1 mg Tablet 0.5 mg PO BID Qty: 60 0RF cyanocobalamin (vitamin B-12) [Vitamin B-12] 100 mcg Tablet 100 mcg PO DAILY Qty: 30 0RF hydroxyzine HCl 50 mg Tablet 50 mg PO BEDTIME MRX1 PRN (Reason: insomnia) Qty: 60 0RF lorazepam 0.5 mg Tablet 0.5 mg PO TID Qty: 90 0RF trazodone 100 mg Tablet 100 mg PO BEDTIME Qty: 30 0RF bupropion HCl 75 mg Tablet 75 mg PO DAILY Qty: 30 0RF amlodipine 5 mg tablet 1 tab PO DAILY Qty: 30 0RF tamsulosin 0.4 mg capsule 1 cap PO DAILY Qty: 30 0RF lisinopril 40 mg tablet 1 tab PO DAILY Qty: 30 0RF olanzapine 20 mg tablet 20 mg PO BEDTIME Qty: 90 0RF Rx Instructions: Insurance requirement 90 day clonidine HCl 0.1 mg tablet 0.1 mg PO BID Qty: 180 0RF Rx Instructions: 90 day insurance requirement Stand Alone Forms: Patient Portal Discharge page
--- NOTE | 2022-10-03 15:19 | P.PNPSP_ITS ---
Subjective Subjective Date of Service: 10/03/22 Reason For Visit: bipolar Medical Problems Affecting Mental Status: No Interim History: Continues with fatigue, reports feeling too tired each day to drive. Mood okay Finding groups helpful Wants medication adjustment due to sedation Medication Compliance: Yes Side effects from medications: Yes (sedation) Attending Groups: Yes Review of Systems Acute medical concerns: No Medical Review of Systems: unchanged Review of Systems Review of Systems Yes all other systems are reviewed and are negative Constitutional: Reports fatigue Endocrine: Reports fatigue Mental Status Exam Mental Status Exam Narrative: NAD Patient Appearance: Well Grooomed and Fatigued Patient Orientation: Person, Place, Time and Situation Level of Consciousness: Appropriate Patient Behavior: Appropriate, Cooperative and Good Eye Contact Mood Description: Appropriate Affect Description: Appropriate Patient Cognition Impaired: No Ability to Follow Directions: Excellent Speech Pattern: Appropriate and Spontaneous Speech Memory Description: Episodic Impaired Hallucinations: None Delusions: Not Present Thought Process: Intact Thought Content: positive for Intact Depressive Symptoms: Difficulty Sleeping, Loss of Int. in Activity, Increased Fatigue and Difficulty Concentrating Judgement: Fair Diagnostics Vital Signs (24Hr): BMI result Body Mass Index 25.8 Labs Labs: Labs reviewed, including plt count, dropped from 206 on 08/28 to 150 on 09/12, rbc 4.30, Hgb 13.0, Hct 40.6, low valproic acid level. Assessment & Plan Assessment & Plan (1) Bipolar disorder: Status: Acute Code(s): F31.9 - Bipolar disorder, unspecified Assessment and Plan: Mood more stable. Finding groups helpful. Continues with fatigue. Reviewed labs with patient. Discussed taper down off depakote, due to low platelet count and fatigue, and continue with current olanzapine dose, as his mood is currently more stable. (2) Anxiety: Status: Inactive Code(s): F41.9 - Anxiety disorder, unspecified Assessment and Plan: Less anxious Plan 1. Continue with current [facility] plan of care. 2. Depakote dose today 1000 mg. (decreased from daily dose 1250mg). 3. Depakote dose tomorrow 750 mg. 4. Depakote dose Saturday 500 mg. 5. Follow-up on Saturday. Patient educated on: diagnosis, medication risk/benefits and therapeutic strategies Informed Consent: understands Reason for contiued partial hosp. stay Substantial Risk for: inability to function, rapid decompensation and med/psych decompensation Certification I certify that partial hospital treatment is medically necessary due to the symptoms and problems resulting from the patient's mental illness and the failure to treat the patient at the partial hospital level of care would likely result in the patient requiring inpatient psychiatric care which could not be prevented at a less intensive level of care. Total time managing care of this patient today _30___ minutes. Discharge Plan Discharge Attending provider: Parminder Knight Medications: No Action divalproex [Depakote ER] 500 mg tablet extended release 24 hr 1,000 mg PO BEDTIME Label Comments: Erendira changed to HS d/t daytime sedation. divalproex [Depakote ER] 250 mg tablet extended release 24 hr 250 mg PO DAILY Label Comments: Erendira changed to the am. multivitamin [Daily-Nhi] Tablet 1 tab PO DAILY Qty: 30 0RF glycopyrrolate 1 mg Tablet 0.5 mg PO BID Qty: 60 0RF cyanocobalamin (vitamin B-12) [Vitamin B-12] 100 mcg Tablet 100 mcg PO DAILY Qty: 30 0RF hydroxyzine HCl 50 mg Tablet 50 mg PO BEDTIME MRX1 PRN (Reason: insomnia) Qty: 60 0RF lorazepam 0.5 mg Tablet 0.5 mg PO TID Qty: 90 0RF trazodone 100 mg Tablet 100 mg PO BEDTIME Qty: 30 0RF bupropion HCl 75 mg Tablet 75 mg PO DAILY Qty: 30 0RF amlodipine 5 mg tablet 1 tab PO DAILY Qty: 30 0RF tamsulosin 0.4 mg capsule 1 cap PO DAILY Qty: 30 0RF lisinopril 40 mg tablet 1 tab PO DAILY Qty: 30 0RF olanzapine 20 mg tablet 20 mg PO BEDTIME Qty: 90 0RF Rx Instructions: Insurance requirement 90 day clonidine HCl 0.1 mg tablet 0.1 mg PO BID Qty: 180 0RF Rx Instructions: 90 day insurance requirement Stand Alone Forms: Patient Portal Discharge page
--- NOTE | 2022-10-08 11:47 | HO.PHPPROGNO ---
Subjective Subjective Date of Service: 10/08/22 Reason For Visit: bipolar Medical Problems Affecting Mental Status: No Interim History: Completed depakote taper, last dose Saturday10/06/2022. Mood stable, less anxious. Improved sleep, less broken , sleeping through night for 6 to 7 hours. Much less daytime sedation. No SI reported, no safety concerns. Medication Compliance: Yes Side effects from medications: No Attending Groups: Yes Review of Systems Acute medical concerns: No Medical Review of Systems: unchanged Review of Systems Review of Systems Yes all other systems are reviewed and are negative Constitutional: Reports no additional constitutional complaints Mental Status Exam Mental Status Exam Narrative: NAD Patient Appearance: Well Grooomed Patient Orientation: Person, Place, Time and Situation Level of Consciousness: Appropriate Patient Behavior: Appropriate, Cooperative and Good Eye Contact Mood Description: Appropriate Affect Description: Appropriate Patient Cognition Impaired: No Ability to Follow Directions: Excellent Speech Pattern: Appropriate and Spontaneous Speech Memory Description: Episodic Impaired Hallucinations: None Delusions: Not Present Thought Process: Intact Thought Content: positive for Intact Judgement: Good Diagnostics Vital Signs (24Hr): BMI result Body Mass Index 25.8 Assessment & Plan Assessment & Plan (1) Bipolar disorder: Status: Acute Code(s): F31.9 - Bipolar disorder, unspecified Assessment and Plan: Completed depakote taper, last dose Saturday10/06/2022. Mood stable, less anxious. Had busy day yesterday, but was able to manage the stress effectively. Improved sleep, less broken , sleeping through night for 6 to 7 hours. Much less daytime sedation. Plans to trial driving soon, as he is feeling more confident in level of alertness. No SI reported, no safety concerns. Has PCP appt later this week, will obtain labs through that office. Feels stable for discharge from [facility] tomorrow. (2) Anxiety: Status: Inactive Code(s): F41.9 - Anxiety disorder, unspecified Plan 1. Patient appears stable for discharge from [facility] tomorrow, is scheduled for last day tomorrow. 2. Patient to follow-up with outpatient providers going forward. Patient educated on: diagnosis, medication risk/benefits and therapeutic strategies Informed Consent: understands Reason for contiued partial hosp. stay Substantial Risk for: stable for discharge Certification I certify that partial hospital treatment is medically necessary due to the symptoms and problems resulting from the patient's mental illness and the failure to treat the patient at the partial hospital level of care would likely result in the patient requiring inpatient psychiatric care which could not be prevented at a less intensive level of care. Total time managing care of this patient today _20__ minutes. Discharge Plan Discharge Attending provider: Parminder Knight Medications: Discontinued divalproex [Depakote ER] 500 mg tablet extended release 24 hr 1,000 mg PO BEDTIME Label Comments: Erendira changed to HS d/t daytime sedation. divalproex [Depakote ER] 250 mg tablet extended release 24 hr 250 mg PO DAILY Label Comments: Erendira changed to the am. No Action multivitamin [Daily-Nhi] Tablet 1 tab PO DAILY Qty: 30 0RF glycopyrrolate 1 mg Tablet 0.5 mg PO BID Qty: 60 0RF cyanocobalamin (vitamin B-12) [Vitamin B-12] 100 mcg Tablet 100 mcg PO DAILY Qty: 30 0RF hydroxyzine HCl 50 mg Tablet 50 mg PO BEDTIME MRX1 PRN (Reason: insomnia) Qty: 60 0RF lorazepam 0.5 mg Tablet 0.5 mg PO TID Qty: 90 0RF trazodone 100 mg Tablet 100 mg PO BEDTIME Qty: 30 0RF bupropion HCl 75 mg Tablet 75 mg PO DAILY Qty: 30 0RF amlodipine 5 mg tablet 1 tab PO DAILY Qty: 30 0RF tamsulosin 0.4 mg capsule 1 cap PO DAILY Qty: 30 0RF lisinopril 40 mg tablet 1 tab PO DAILY Qty: 30 0RF olanzapine 20 mg tablet 20 mg PO BEDTIME Qty: 90 0RF Rx Instructions: Insurance requirement 90 day clonidine HCl 0.1 mg tablet 0.1 mg PO BID Qty: 180 0RF Rx Instructions: 90 day insurance requirement Stand Alone Forms: Patient Portal Discharge page
--- NOTE | 2022-10-09 11:30 | PC.NURSE ---
Rudy reports he is feeling good about discharge, feeling ready. Denied SI or thoughts to harm himself. Reviewed patient discharge paperwork with Rudy. He reports he is taking his medications as prescribed. Reports sleeping 6-8 Hrs a night. Feeling stable for discharge. Looking forward to 1:1 therapy and connecting with the senior center in his town.
== END 2022-10-10 23:59 | disposition home or self-care (01) ==
LOC: HO.PHPA 12:30
PROVIDERS: Visit Provider Psychiatry & Neurology Psychiatry
DX: F31.9 Bipolar disorder, unspecified (principal); F41.9 Anxiety disorder, unspecified; F12.90 Cannabis use, unspecified, uncomplicated; Z79.899 Other long term (current) drug therapy
CPT/HCPCS: 80307; 90791; 90853

== ENCOUNTER 2023-03-07 11:30 | Outpatient (RCR) | payer OTHER, SELFPAY ==
--- NOTE | 2023-02-19 13:23 | HO.PS.ADMBH ---
HPI Date of Service: 02/19/23 Chief Complaint: bipolar disorder Sources of Information: patient interviewed, chart reviewed and crisis/core team assessment reviewed HPI Medical Problems Affecting Mental Status: No Narrative: Chart reviewed prior to meeting with patient. Mr. Hernandez is a 62-year-old male, self-referred to this program due to worsening symptoms of anxiety, depression. He had been in this program 6 months ago, and found it helpful. Reports that he has had multiple stressors since that time, and that he feels he has regressed. Reports poor motivation, decreased energy, fatigue, staying in bed most of day. Poor attention to ADL's / IADL's. Catastrophizing at times. Feeling hopeless and helpless at times, anhedonia, difficulty with concentration. No current SI, does have a history of passive SI. Has had multiple stressors, including losing his job. 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 Had been from his , living at his brother's home. Reports that he was asked to leave their home, has since moved back in with his . Describes his as supportive. He is currently sleeping in the living room. Reports stress in being in the home, as his daughter and spouse, with 2 young children are in the home, which he states can be chaotic at times. Also experiencing financial stressors, as he is not currently working. Reports his lost 25 lb in past 5 months due to depression and anxiety symptoms. Reports he also feels he is not eating enough due to budget constraints. PHQ-9 score 17. He is currently engaged with outpatient providers. He last spoke with his outpatient psychiatrist last . He reports that at that time she had lowered his Wellbutrin dose to every other day. He reports he fairly recently had been started with low-dose Abilify, currently taking 5 mg daily in addition to his other prescribed meds. He states that when he was here he was able to function at a higher level, that he was walking his dog multiple times during a week, taking his medications, working with a therapist weekly. He states he wants to become again in his treatment, and focus on coping skills. He is also interested in adding a medication, or dose changes, as he feels extremely depressed. Past Psychiatric History: IP: M5 08/2022 OP: Through [facility], Dr. Deena Hernandez, and therapist Jermaine Vuong. Trials: Ritalin (too stimulating), Lexapro, Effexor, depakote (effective but sedating) Medical Evaluation Reviewed: Yes [facility] Medical History Anxiety Bipolar disorder Hypertension Low vitamin B12 level Surgical History History of appendectomy Family History: Brother of alcoholism/oral cancer d/t smoking Father alcoholic, maternal grandfather alcoholic Social History: Born in [place]. 1 brother, 1 sister, age 69 Parents have mom in 1978 of pancreatic cancer, dad in 2000 of lung cancer 40 years, on his 40th anniversary. Currently working on [employer]. 2 children, 2 grandchildren daughter and her and grandchildren live with pt's son and partner live nearby all the children are doing well- they are my basil Employed full-time, currently out on medical leave. Substance History: none Trauma History: 2021 manic episode Meds/Allergies Meds Home Medications Medication Instructions Recorded Confirmed Type aripiprazole 5 mg tablet 5 mg PO QAM 02/19/23 02/19/23 History hydroxyzine HCl 50 mg tablet 50 - 100 mg PO BEDTIME PRN insomnia 02/19/23 02/19/23 History lorazepam 0.5 mg tablet 0.025 - 0.5 mg PO BID PRN Anxiety 02/19/23 02/19/23 History trazodone 100 mg tablet 50 - 100 mg PO BEDTIME 02/19/23 02/19/23 History Allergies Allergies Allergy/AdvReac Type Severity Reaction Status Date / Time No Known Allergies Allergy Verified 08/28/22 16:07 Mental Status Exam Mental Status Exam Narrative: Well-developed, well nourished male, in NAD. No tics or tremors, no abnormal movements. Patient Appearance: Fatigued Patient Orientation: Person, Place, Time and Situation Level of Consciousness: Appropriate and Alert Patient Behavior: Appropriate, Cooperative, Anxious and Good Eye Contact Mood Description: Depressed and Anxious Affect Description: Depressed and Anxious Patient Cognition Impaired: No Ability to Follow Directions: Good Speech Pattern: Clear and Appropriate Memory Description: Intact Hallucinations: None Delusions: Not Present Thought Process: Rumination Thought Content: positive for Obsessional Thoughts and positive for Perseveration Depressive Symptoms: Increased Anxiety, Diff. Making Decisions, Difficulty Sleeping, Sleeping More Than Usual, Significant Weight Loss, Loss of Int. in Activity, Hopelessness, Isolating-Friends/Family, Unhappiness, Increased Fatigue, Thoughts of /Suicide (intermittent passive, none today.), Low Self Esteem and Loss of Energy Abnormal Motor Activity Signs and Symptoms: Psychomotor Retardation Judgement: Fair Assessment & Plan Assessment & Plan (1) Bipolar disorder: Status: Acute Code(s): F31.9 - Bipolar disorder, unspecified Assessment and Plan: Mr. Hernandez is a 62-year-old male, self-referred to [facility] due to increased symptoms of anxiety and depression. He had been in this program in August 2022, and found it helpful. Due to multiple stressors, he feels he has decompensated, and is currently in a state of deep depression. Has had passive SI intermittent, denies any today. Reports that he feels safe. Engaged with current outpatient providers, and has had recent medication changes. Displays catastrophic thinking, excessive worry, intrusive thoughts, rumination. Struggling with energy, motivation. Reports that he has been laying in bed all day, unable to get up, poor attention to ADLs/IADLs. Currently staying at home with . Daughter, her spouse and young children are present in the home, reports that this is a stressor for him. We discussed his current medications in detail. Labs were completed in September of this year. He expresses concern regarding costs, as he is currently not employed. He reports that his outpatient psychiatrist had told him she planned to order labs and EKG. Reviewed labs completed in August 2022, he appeared to have adequate renal function as well as LFTs. Patient will follow-up with his insurance company and outpatient provider regarding status of the labs / EKG, as well as cost. He had done well with Depakote in the past, although he was taking a large amount and he felt it was making him too sedated during the day. We discussed adding a low dose at night, as he has had positive response from this medication in the past. He was agreeable with this at this time. (2) Anxiety: Status: Inactive Code(s): F41.9 - Anxiety disorder, unspecified Assessment and Plan: Patient continues with excessive worry, rumination. Patient currently taking lorazepam t.i.d.. Was concerned that he would not have it filled correctly, as it had been sent in for b.i.d.. However, this has already been handled by his outpatient provider, and they have told him that it would be filled. Plan 1. Continue with current [facility] plan of care. 2. Add Depakote ER 250 mg at bedtime. 3. Continue with other medications as currently prescribed by outpatient provider. 4. Patient plans to check with his insurance plan regarding cost of labs, also believes they have been ordered by his outpatient provider. 5. Follow-up as per protocol. Patient educated on: diagnosis, medication risk/benefits and therapeutic strategies Informed Consent: understands Reason for continued partial hosp. stay Substantial Risk for: harm to self, inability to function, rapid decompensation and med/psych decompensation Certification I certify that partial hospital treatment is medically necessary due to the symptoms and problems resulting from the patient's mental illness and the failure to treat the patient at the partial hospital level of care would likely result in the patient requiring inpatient psychiatric care which could not be prevented at a less intensive level of care. Time Spent With Patient Time: Total time managing care of this patient today __60__ minutes.
[2023-02-19 14:15] VITALS: BP 146/90; PULSE 88; TEMP 37.3
[2023-02-19 14:17] VITALS: BMI 22.9
--- NOTE | 2023-02-19 14:39 | PC.ADMIT ---
Patient is a 62 year old male who self referred to PHP d/t increased sxs of depression and anxiety. Patient reports he was terminated from his job at [employer] where he has worked for the past 23 years. Reports financial issues as a result and the inability to retire until May 2023. Patient reports feeling overwhelmed with stresses including having his adult daughter and her partner along with his 2 grandchildren living in his home. He reports he doesn't have enough food to eat and has lost 30 lbs in the past few months. (Patient given information on food pantry's in the town where he lives). Patient attended PHP from 09/21/22-10/09/22 as he was referred from inpatient level of care where he was admitted previous to this. He reports he was dx with Bipolar disorder in February 2022. Patient is alert and oriented x4. Calm and cooperative. Presented with depressed mood and anxious affect. Denied SI. Patient received a copy of his safety plan if needed and I reviewed it with him. Medications reconciled with patient and patient's pharmacy. Patient stated he is taking his medications as prescribed. Pharmacy reports last time he filled Amlodipine 5 mg daily in September 2022 for a 90 day supply and Lisinopril 40 mg 06/29/22 for a 90 day supply.
--- NOTE | 2023-02-21 16:04 | HO.PHP ---
The clients case was reviewed and opened in treatment team
--- NOTE | 2023-02-27 11:01 | HO.PHPPROGNO ---
Subjective Subjective Date of Service: 02/27/23 Reason For Visit: bipolar disorder Medical Problems Affecting Mental Status: No Interim History: ?I am anxious about everything ?. Continues with depressed, anxious mood and affect. States that overall he is ?okay ?, but really tired. Reports that he is not sleeping well since the time change. Not finding added Depakote at bedtime helpful. No SI reported, no safety concerns. Medication Compliance: Yes Side effects from medications: No Attending Groups: Yes Review of Systems Acute medical concerns: No Medical Review of Systems: unchanged Review of Systems Review of Systems Yes all other systems are reviewed and are negative Constitutional: Reports no additional constitutional complaints Mental Status Exam Mental Status Exam Narrative: NAD. Patient Appearance: Fatigued Patient Orientation: Person, Place, Time and Situation Level of Consciousness: Appropriate and Alert Patient Behavior: Appropriate, Cooperative, Anxious and Good Eye Contact Mood Description: Depressed and Anxious Affect Description: Depressed and Anxious Patient Cognition Impaired: No Ability to Follow Directions: Good Speech Pattern: Clear and Appropriate Memory Description: Intact Hallucinations: None Delusions: Not Present Thought Process: Rumination Thought Content: positive for Obsessional Thoughts and positive for Perseveration Depressive Symptoms: Increased Anxiety, Diff. Making Decisions, Difficulty Sleeping, Changes in Appetite (poor), Significant Weight Loss, Loss of Int. in Activity, Hopelessness, Isolating-Friends/Family, Unhappiness, Increased Fatigue, Thoughts of /Suicide (intermittent passive, none today.), Low Self Esteem, Loss of Energy and Difficulty Concentrating Judgement: Fair Diagnostics Vital Signs (24Hr): BMI result Body Mass Index 22.9 Assessment & Plan Assessment & Plan (1) Bipolar disorder: Status: Acute Code(s): F31.9 - Bipolar disorder, unspecified Assessment and Plan: Continues with anxious, depressed mood. Poor sleep, related to situational issues. Has been sleeping in den, no curtains are blind on the windows, reports that people in the house stay up watching TV and talking in the room while he is trying to sleep. Catastrophic thinking. Discussed putting up window coverings, ear plugs, eye mask. Reports he has tried various things with little help. Reports added Depakote at night has not been helpful with mood or sleep. Continues perseveration regarding current medications, prescription coverage with insurance, etc.. No SI reported, no safety concerns. States that he is finding the groups ?more of a distraction ?, rather than helpful. Has been using groups appropriately, sharing his issues as well as receiving feedback from others. (2) Anxiety: Status: Inactive Code(s): F41.9 - Anxiety disorder, unspecified Plan 1. Continue with current [facility] plan of care. 2. Discontinue Depakote at bedtime. Continue with other medications as prescribed. 3. Follow-up as per protocol. Patient educated on: diagnosis, medication risk/benefits and therapeutic strategies Informed Consent: understands Reason for contiued partial hosp. stay Substantial Risk for: inability to function and rapid decompensation Certification I certify that partial hospital treatment is medically necessary due to the symptoms and problems resulting from the patient's mental illness and the failure to treat the patient at the partial hospital level of care would likely result in the patient requiring inpatient psychiatric care which could not be prevented at a less intensive level of care. Total time managing care of this patient today ___20_ minutes. Discharge Plan Discharge Attending provider: Parminder Knight Medications: No Action bupropion HCl 75 mg Tablet 75 mg PO DAILY Qty: 30 0RF amlodipine 5 mg tablet 1 tab PO DAILY Qty: 30 0RF Patient Comments: Patient stated he is currently taking this medication. Last filled in September 2022 90 day supply. tamsulosin 0.4 mg capsule 1 cap PO DAILY Qty: 30 0RF lisinopril 40 mg tablet 1 tab PO DAILY Qty: 30 0RF Patient Comments: Patient stated he takes daily. Last filled per pharmacy 06/02/22 for 90 day supply. Confirmed with PCP's office. olanzapine 20 mg tablet 20 mg PO BEDTIME Qty: 90 0RF Rx Instructions: Insurance requirement 90 day clonidine HCl 0.1 mg tablet 0.1 mg PO BID Qty: 180 0RF Rx Instructions: 90 day insurance requirement lorazepam 0.5 mg tablet 0.025 - 0.5 mg PO BID PRN (Reason: Anxiety) Rx Instructions: Take 1/2 to 1 tab BID PRN for Severe Anxiety. trazodone 100 mg tablet 50 - 100 mg PO BEDTIME hydroxyzine HCl 50 mg tablet 50 - 100 mg PO BEDTIME PRN (Reason: insomnia) aripiprazole 5 mg tablet 5 mg PO QAM
--- NOTE | 2023-03-01 13:10 | HO.PHP ---
I called the clients therapist , Checo Vuong [facility], and we discussed the clients progress and discharge date of 03/07. Checo will be seeing him the following week on 03/14.
[2023-03-07 10:56] VITALS: BP 144/82; PULSE 80
--- NOTE | 2023-03-07 11:48 | HO.PHPPROGNO ---
Subjective Subjective Date of Service: 03/07/23 Reason For Visit: bipolar disorder Medical Problems Affecting Mental Status: No Interim History: Less anxious, improved mood. Feels stable for discharge from [facility] today. No SI, no safety concerns. Medication Compliance: Yes Side effects from medications: No Attending Groups: Yes Review of Systems Acute medical concerns: No Medical Review of Systems: unchanged Review of Systems Review of Systems Yes all other systems are reviewed and are negative Constitutional: Reports no additional constitutional complaints Mental Status Exam Mental Status Exam Narrative: NAD. Patient Appearance: Appropriate Patient Orientation: Person, Place, Time and Situation Level of Consciousness: Appropriate and Alert Patient Behavior: Appropriate, Cooperative, Anxious (improved) and Good Eye Contact Mood Description: Anxious Affect Description: Depressed (less) and Anxious (less) Patient Cognition Impaired: No Ability to Follow Directions: Good Speech Pattern: Clear and Appropriate Memory Description: Intact Hallucinations: None Delusions: Not Present Thought Content: positive for Intact Depressive Symptoms: Increased Anxiety, Diff. Making Decisions, Loss of Int. in Activity, Loss of Energy and Difficulty Concentrating Judgement: Good Diagnostics Vital Signs (24Hr): Vital Signs - 24 hr 03/07/23 10:56 Pulse Rate 80 Blood Pressure 144/82 H BMI result Body Mass Index 22.9 Assessment & Plan Assessment & Plan (1) Bipolar disorder: Status: Acute Code(s): F31.9 - Bipolar disorder, unspecified Assessment and Plan: Improved mood, more stable. No SI, no safety concerns. Continues with some anxiety, especially around structure once he leaves here today. Overall less anxious. Taking medications as prescribed, no concerns. Feels ready for discharge from [facility] today. (2) Anxiety: Status: Inactive Code(s): F41.9 - Anxiety disorder, unspecified Plan 1. Patient appears stable for discharge from [facility] today. 2. Patient to follow-up with outpatient providers going forward. Patient educated on: diagnosis, medication risk/benefits and therapeutic strategies Informed Consent: understands Reason for contiued partial hosp. stay Substantial Risk for: stable for discharge Certification I certify that partial hospital treatment is medically necessary due to the symptoms and problems resulting from the patient's mental illness and the failure to treat the patient at the partial hospital level of care would likely result in the patient requiring inpatient psychiatric care which could not be prevented at a less intensive level of care. Total time managing care of this patient today ___20_ minutes. Discharge Plan Discharge Attending provider: Parminder Knight Medications: New aripiprazole 5 mg tablet 5 mg PO DAILY Qty: 30 0RF Rx Instructions: take in morning Discontinued aripiprazole 5 mg tablet 5 mg PO QAM No Action bupropion HCl 75 mg Tablet 75 mg PO DAILY Qty: 30 0RF amlodipine 5 mg tablet 1 tab PO DAILY Qty: 30 0RF Patient Comments: Patient stated he is currently taking this medication. Last filled in September 2022 90 day supply. tamsulosin 0.4 mg capsule 1 cap PO DAILY Qty: 30 0RF lisinopril 40 mg tablet 1 tab PO DAILY Qty: 30 0RF Patient Comments: Patient stated he takes daily. Last filled per pharmacy 06/02/22 for 90 day supply. Confirmed with PCP's office. olanzapine 20 mg tablet 20 mg PO BEDTIME Qty: 90 0RF Rx Instructions: Insurance requirement 90 day clonidine HCl 0.1 mg tablet 0.1 mg PO BID Qty: 180 0RF Rx Instructions: 90 day insurance requirement lorazepam 0.5 mg tablet 0.025 - 0.5 mg PO BID PRN (Reason: Anxiety) Rx Instructions: Take 1/2 to 1 tab BID PRN for Severe Anxiety. trazodone 100 mg tablet 50 - 100 mg PO BEDTIME hydroxyzine HCl 50 mg tablet 50 - 100 mg PO BEDTIME PRN (Reason: insomnia) Stand Alone Forms: Patient Portal Discharge page Patient Education: Bipolar Disorder (DC)
== END 2023-03-07 23:59 | disposition home or self-care (01) ==
LOC: HO.PHPA 11:30
PROVIDERS: Visit Provider Psychiatry & Neurology Psychiatry
DX: F31.9 Bipolar disorder, unspecified (principal); F41.9 Anxiety disorder, unspecified; Z79.899 Other long term (current) drug therapy
CPT/HCPCS: 90791; 90853